=== PATIENT | female | born 1975 | race Two or more races ===

== ENCOUNTER 2016-03-06 10:57 | Emergency (ER) | payer MEDICAID ==
[2016-03-06] MEDS ORDERED: IBUPROFEN 600 MG TABLET PO STA (12:02)
[2016-03-06] MEDS ORDERED: HYDROcod/ACETAM 5/325 MG TABLET PO STA (12:02)
[2016-03-06] MEDS ORDERED: HYDROcod/ACETAM 5/325 MG TABLET ONE (12:04)
[2016-03-06] MEDS ORDERED: IBUPROFEN 600 MG TABLET PO ONE (12:04)
== END 2016-03-06 12:47 | disposition home or self-care (01) ==
DX: J18.9 Pneumonia, unspecified organism (principal); S29.011A Strain of muscle and tendon of front wall of thorax, initial encounter; X58.XXXA Exposure to other specified factors, initial encounter; F17.200 Nicotine dependence, unspecified, uncomplicated
CPT/HCPCS: 71020; 99283; 99284; A9270

== ENCOUNTER 2016-07-13 14:47 | Outpatient (CLI) | payer MEDICAID ==
[2016-07-13 15:05] LABS: BASOPHILS # (AUTO) 0.1 10^3/uL (0.0-0.1); BASOPHILS % (AUTO) 0.7 %; EOSINOPHILS # (AUTO) 0.8 10^3/uL (0.0-0.7); EOSINOPHILS % (AUTO) 8.8 %; HCT - HEMATOCRIT 34.9 % (37.0-47.0); HGB - HEMOGLOBIN 11.7 g/dL (12.0-16.0); LYMPHOCYTES # (AUTO) 2.6 10^3/uL (1.5-3.5); MEAN CORPUSCULAR HEMOGLOBIN 25.7 pg (27.0-31.0); MEAN CORPUSCULAR HGB CONC 33.5 g/dL (32.0-36.0); MEAN CORPUSCULAR VOLUME 76.9 fL (81.0-99.0); MEAN PLATELET VOLUME 8.1 fL (7.9-10.8); MONOCYTES # (AUTO) 0.8 10^3/uL (0.0-1.0); MONOCYTES % (AUTO) 8.3 %; NEUTROPHILS % (AUTO) 54.2 %; RED BLOOD COUNT 4.54 10^6/uL (4.20-5.40); RED CELL DISTRIBUTION WIDTH 19.7 % (12.0-15.0); UNCORRECTED WHITE BLOOD COUNT 9.2 x10^3/uL; WHITE BLOOD COUNT 9.2 x10^3/uL (4.8-10.8)
[2016-07-13 15:16] LABS: ALBUMIN/GLOBULIN RATIO 1.3 (1.0-2.2); BILIRUBIN,TOTAL 0.2 mg/dL (0.2-1.0); CALCIUM 9.1 mg/dL (8.5-10.3); CREATININE 0.6 mg/dL (0.4-1.0); POTASSIUM 4.1 mmol/L (3.5-5.0); TOTAL PROTEIN 7.1 g/dL (6.7-8.2)
== END 2016-07-13 14:48 | disposition home or self-care (01) ==
LOC: LAB 14:47
PROVIDERS: ATTEND Registered Nurse
DX: Z79.899 Other long term (current) drug therapy (principal)
CPT/HCPCS: 36415; 80053; 80306; 84443; 85025

== ENCOUNTER 2016-12-31 14:00 | Outpatient (CLI) | payer MEDICAID ==
[2016-12-31 19:18] LABS: ALBUMIN/GLOBULIN RATIO 1.1 (1.0-2.2); BILIRUBIN,TOTAL 0.3 mg/dL (0.2-1.0); BUN - BLOOD UREA NITROGEN 20 mg/dL (6-20); CALCIUM 9.2 mg/dL (8.5-10.3); CARBON DIOXIDE - CO2 18 mmol/L (21-32); CHLORIDE 111 mmol/L (101-111); CREATININE 0.8 mg/dL (0.4-1.0); GFR - MDRD 78 (>89); GLUCOSE 92 mg/dL (70-100); POTASSIUM 3.7 mmol/L (3.5-5.0); SODIUM 137 mmol/L (135-145); TOTAL PROTEIN 7.3 g/dL (6.7-8.2)
== END 2016-12-31 14:01 | disposition home or self-care (01) ==
LOC: LAB.N 14:00
PROVIDERS: ATTEND Nurse Practitioner Gerontology
DX: R63.5 Abnormal weight gain (principal); R10.9 Unspecified abdominal pain
CPT/HCPCS: 36415; 80053; 84443; 84703

== ENCOUNTER 2017-01-08 08:56 | Outpatient (CLI) | payer MEDICAID ==
--- NOTE | 2017-01-08 11:30 | Ultrasound Report ---
EXAM: ABDOMEN ULTRASOUND EXAM DATE: 01/08/2017 09:30 AM. CLINICAL HISTORY: Abdominal pain. COMPARISON: None. TECHNIQUE: Real-time scanning was performed with static images obtained. FINDINGS: Liver: Liver parenchyma is heterogeneous and mildly hyperechoic. No discrete liver masses or intrah epatic bile duct dilation. However, evaluation for masses is limited secondary to the echogenicity. 16.4 cm. Main portal vein flow: Hepatopetal. Gallbladder: Normal. No stones, wall thickening, or sonographic Jorge's sign. Biliary System: Common bile duct measures 4.6 mm. No intrahepatic or extrahepatic ductal dilatation. Pancreas: Distal pancreas largely obscured by bowel gas. No gross pancreatic abnormality. Kidneys: Right: 11.3 cm longitudinally. Normal. No contour-deforming mass, stones, or hydronephrosis. Left: 11 cm longitudinally. Normal. No contour-deforming mass, stones, or hydronephrosis. Spleen: Length measures 9.7 cm. Normal in size and echotexture. Aorta and Inferior Vena Cava: Unremarkable. IMPRESSION: 1. Mild fatty infiltration to the liver. No mass or intrahepatic bile duct dilation. 2. Distal pancreas not well seen. No gross pancreatic abnormality. 3. Normal gallbladder and common bile duct. [facility] Referring Provider Line: [phone] SITE ID: [id number]
== END 2017-01-08 08:57 | disposition home or self-care (01) ==
LOC: DI 08:56
PROVIDERS: ATTEND Nurse Practitioner Gerontology
DX: K76.0 Fatty (change of) liver, not elsewhere classified (principal)
CPT/HCPCS: 76700

== ENCOUNTER 2017-02-08 19:28 | Outpatient (CLI) | payer MEDICAID | END 2017-02-08 19:29 | disposition critical access hospital (66) | LOC: EMS 19:28 | PROVIDERS: ATTEND Surgery | DX: R41.82 Altered mental status, unspecified (principal) | CPT/HCPCS: A0425; A0427 ==

== ENCOUNTER 2017-02-08 19:39 | Inpatient (IN) | payer MEDICAID ==
[2017-02-08] MEDS ORDERED: LORazepam 2 MG/ML VIAL IVP PRN (20:05)
[2017-02-08] MEDS ORDERED: HALOPERIDOL 5 MG/ML VIAL IM STA (20:07)
[2017-02-08] MEDS ORDERED: diphenhydrAMINE INJ 50 MG/ML VIAL IM STA (20:08)
[2017-02-08 20:37] LABS: BILIRUBIN,URINE NEGATIVE (NEGATIVE); GLUCOSE, URINE (UA) NEGATIVE (NEGATIVE); KETONES,URINE (UA) NEGATIVE (NEGATIVE); LEUKOCYTE ESTERASE, URINE NEGATIVE (NEGATIVE); NITRITE,URINE NEGATIVE (NEGATIVE); OCCULT BLOOD,URINE MODERATE (NEGATIVE); PROTEIN,URINE 100 mg/dL (NEGATIVE); UROBILINOGEN,URINE 0.2 (NORMAL) E.U./dL (NORMAL)
[2017-02-08 20:49] LABS: BASOPHILS # (AUTO) 0.1 10^3/uL (0.0-0.1); BASOPHILS % (AUTO) 0.6 %; EOSINOPHILS # (AUTO) 0.2 10^3/uL (0.0-0.7); EOSINOPHILS % (AUTO) 1.2 %; HGB - HEMOGLOBIN 12.6 g/dL (12.0-16.0); LYMPHOCYTES # (AUTO) 1.2 10^3/uL (1.5-3.5); LYMPHOCYTES % (AUTO) 9.1 %; MEAN CORPUSCULAR VOLUME 84.2 fL (81.0-99.0); MEAN PLATELET VOLUME 8.3 fL (7.9-10.8); MONOCYTES # (AUTO) 0.8 10^3/uL (0.0-1.0); MONOCYTES % (AUTO) 6.6 %; NEUTROPHILS # (AUTO) 10.4 10^3/uL (1.5-6.6); NEUTROPHILS % (AUTO) 82.5 %; PLT - PLATELET COUNT 463 10^3/uL (130-450); RED BLOOD COUNT 4.68 10^6/uL (4.20-5.40); RED CELL DISTRIBUTION WIDTH 16.9 % (12.0-15.0); WHITE BLOOD COUNT 12.7 x10^3/uL (4.8-10.8)
[2017-02-08 20:54] LABS: PT - PROTHROMBIN TIME 11.8 secs (9.9-12.6)
[2017-02-08 20:57] LABS: MUDS CUTOFF CONCENTRATIONS CUTOFF CONC BELOW:
[2017-02-08 20:57] LABS: CK- CREATINE KINASE 533 IU/L (22-269); SALICYLATE < 6.0 mg/dL
[2017-02-08 21:06] LABS: CLARITY,URINE CLEAR (CLEAR)
[2017-02-08] MEDS ORDERED: SODIUM CHLORIDE 0.9% 1,000 ML IV ONE (21:06)
[2017-02-08 21:08] LABS: SQUAMOUS EPITHELIAL CELL,UR MOD Squamous (<= Few)
[2017-02-08 21:09] LABS: AMORPHOUS SEDIMENT,UR Few /LPF; BACTERIA,URINE Few /HPF (None Seen); CASTS, URINE 11-25Course Granular /LPF
--- NOTE | 2017-02-08 21:11 | CT Preliminary Report ---
Exam: CT HEAD W/O IMPRESSION: Normal head CT. [facility] SITE ID: [id number]
[2017-02-08 21:12] LABS: HCG UR QUAL NEGATIVE
[2017-02-08 21:13] LABS: COCAINE SCREEN URINE NEGATIVE (NEGATIVE); METHADONE SCREEN, URINE NEGATIVE (NEGATIVE); METHAMPHETAMINES SCREEN, URINE NEGATIVE (NEGATIVE); OPIATE SCREEN, URINE NEGATIVE (NEGATIVE); OXYCODONE SCREEN, URINE NEGATIVE (NEGATIVE); PROPOXYPHENE SCREEN, URINE NEGATIVE (NEGATIVE); TRICYCLIC ANTIDEPRESSANT,URINE NEGATIVE (NEGATIVE)
[2017-02-08 21:13] LABS: ACETAMINOPHEN < 10 ug/mL (10-30)
--- NOTE | 2017-02-08 21:13 | CT Report ---
EXAM: CT HEAD EXAM DATE: 02/08/2017 08:53 PM. CLINICAL HISTORY: Altered mental status. COMPARISON: 12/27/2014. TECHNIQUE: Multiaxial CT images were obtained from the foramen magnum to the vertex. Reformats: Coron al. IV contrast: None. In accordance with CT protocol optimization, one or more of the following dose reduction techniques w ere utilized for this exam: automated exposure control, adjustment of mA and/or KV based on patient s ize, or use of iterative reconstructive technique. FINDINGS: Parenchyma: No intraparenchymal hemorrhage. No evidence of mass, midline shift, or CT findings of inf arction. Allen-white differentiation is distinct. Extraaxial Spaces: Normal for age. No subdural or epidural collections identified. Ventricles: Normal in size and position. Sinuses and Orbits: Imaged paranasal sinuses, orbits, and mastoids show no significant abnormality. Bones: No evidence of fracture or calvarial defect. Other: None. IMPRESSION: Normal head CT. [facility] Referring Provider Line: [phone] SITE ID: [id number]
[2017-02-08 21:14] LABS: AMPHETAMINE SCREEN,URINE POSITIVE (NEGATIVE); BENZODIAZEPINES SCREEN, URINE POSITIVE (NEGATIVE)
--- NOTE | 2017-02-08 21:33 | ED Physician Documentation ---
History of Present Illness - Stated complaint Stated Complaint: DELERIUM - Chief complaint Chief Complaint: Neuro - History obtained from History obtained from: Patient, Family ( reported that they went to [place] today and while they were they were there they( and ) did have anxiety. reports that she took two of her anxiety medications and did have 3 energy drinks. reports thta when they got home they had dinner and after dinner the patient went up stairs and when she cam down she was anxoius, altered, angry. reports of a fall.), EMS Review of Systems Unable to obtain: AMS, Confused, Uncooperative PD PAST MEDICAL HISTORY - Past Medical History Cardiovascular: None Respiratory: None Neuro: Head injury Endocrine/Autoimmune: None GI: None : None HEENT: None Psych: Depression, Post traumatic stress disorder Musculoskeletal: None Derm: None - Past Surgical History Past Surgical History: No /[employer]: section, Breast implants Neuro: Other - Present Medications Home Medications: Ambulatory Orders Medication Instructions Recorded Confirmed Escitalopram Oxalate [Lexapro] 20 mg PO DAILY #30 tablet 11/14/15 03/06/16 Albuterol Sulfate [Proair Hfa 2 puffs IH QID #1 hfa.aer.ad 03/06/16 Inhaler] Alprazolam [Xanax] 0 mg ORAL DAILY 03/06/16 03/06/16 Aripiprazole [Abilify] 0 mg ORAL DAILY 03/06/16 03/06/16 Azithromycin [Zithromax] 250 mg PO DAILY #6 tablet 03/06/16 Dexamethasone [Decadron] 4 mg PO DAILY #5 tablet 03/06/16 Hydrocodone/Acetaminophen [[place] 1 each PO Q6H PRN #20 tablet 03/06/16 5-325 Tablet] - Allergies Allergies/Adverse Reactions: Allergies Allergy/AdvReac Type Severity Reaction Status Date / Time No Known Drug Allergies Allergy Verified 03/06/16 11:09 - Social History Does the pt smoke?: Yes Smoking Status: Current some day smoker Does the pt drink ETOH?: Yes Does the pt have substance abuse?: No - Immunizations Immunizations are current?: Yes - POLST Patient has POLST: No PD ED PE NORMAL - Vitals Vital signs reviewed: Yes - General General: Well developed/nourished. No: No acute distress (severe distress) - HEENT HEENT: Atraumatic, Moist mucous membranes. No: PERRL (pupils 6mm equal and min reactive), EOMI - Neck Neck: Supple, no meningeal sign - Cardiac Cardiac: No: RRR (tachycardic ) - Respiratory Respiratory: No respiratory distress, Clear bilaterally - Abdomen Abdomen: Soft, Non distended - Derm Derm: No rash, Other (moist) - Extremities Extremities: Other (moves all 4 ) - Neuro Eye Opening: None Motor: None Verbal: Incomprehensible GCS Score: 4 - Psych Psych: Other PD ED PE EXPANDED - Neuro Neuro: Disoriented - Psych Psych: Non verbal, Agitated, Combative Results - Vitals Vitals: Vital Signs - 24 hr 02/08/17 02/08/17 02/08/17 19:50 19:53 21:08 Temperature 40 C H 39.5 C H Heart Rate 149 H 112 H Respiratory 32 H 25 H Rate Blood Pressure 189/99 H 110/74 O2 Saturation 100 96 Oxygen O2 Source Nasal cannula - EKG (time done) 2036 Rate: Rate (enter#) Rhythm: Sinus tachycardia [place]: Normal Intervals: Normal IA, QRS normal. No: Prolonged QT QRS: Normal Ischemia: Normal ST segments - Labs Labs: Laboratory Tests 02/08/17 02/08/17 02/08/17 20:26 20:26 20:26 WBC RBC Hgb Hct MCV MCH MCHC RDW Plt Count MPV Neut # Lymph # [place] # Eos # Baso # Absolute Nucleated RBC Nucleated RBC % PT INR APTT Lactic Acid Total Creatine Kinase Troponin I Urine Color YELLOW Urine Clarity CLEAR Urine pH 6.0 Ur Specific [place] >=1.030 H >=1.030 H Urine Protein 100 H Urine Glucose (UA) NEGATIVE Urine Ketones NEGATIVE Urine Occult Blood MODERATE H Urine Nitrite NEGATIVE Urine Bilirubin NEGATIVE Urine Urobilinogen 0.2 (NORMAL) Ur Leukocyte Esterase NEGATIVE Urine RBC 11-25 H Urine WBC 6-10 H Ur Squamous Epith Cells MOD Squamous H Amorphous Sediment Few Urine Bacteria Few Urine Casts 11-25Course Granular Ur Microscopic Review INDICATED Urine Culture Comments NOT INDICATED Urine HCG, Qual NEGATIVE Salicylates Urine Opiates Screen NEGATIVE Ur Oxycodone Screen NEGATIVE Urine Methadone Screen NEGATIVE Ur Propoxyphene Screen NEGATIVE Acetaminophen Ur Barbiturates Screen NEGATIVE Ur Tricyclics Screen NEGATIVE Ur Phencyclidine Scrn NEGATIVE Ur Amphetamine Screen POSITIVE H U Methamphetamines Scrn NEGATIVE U Benzodiazepines Scrn POSITIVE H Urine Cocaine Screen NEGATIVE U Cannabinoids Screen NEGATIVE Ethyl Alcohol 02/08/17 02/08/17 02/08/17 20:30 20:30 20:30 WBC 12.7 H RBC 4.68 Hgb 12.6 Hct 39.4 MCV 84.2 MCH 27.0 MCHC 32.0 RDW 16.9 H Plt Count 463 H MPV 8.3 Neut # 10.4 H Lymph # 1.2 L [place] # 0.8 Eos # 0.2 Baso # 0.1 Absolute Nucleated RBC 0.01 Nucleated RBC % 0.1 PT 11.8 INR 1.0 APTT 24.2 L Lactic Acid Total Creatine Kinase 533 H Troponin I Urine Color Urine Clarity Urine pH Ur Specific [place] Urine Protein Urine Glucose (UA) Urine Ketones Urine Occult Blood Urine Nitrite Urine Bilirubin Urine Urobilinogen Ur Leukocyte Esterase Urine RBC Urine WBC Ur Squamous Epith Cells Amorphous Sediment Urine Bacteria Urine Casts Ur Microscopic Review Urine Culture Comments Urine HCG, Qual Salicylates < 6.0 Urine Opiates Screen Ur Oxycodone Screen Urine Methadone Screen Ur Propoxyphene Screen Acetaminophen < 10 L Ur Barbiturates Screen Ur Tricyclics Screen Ur Phencyclidine Scrn Ur Amphetamine Screen U Methamphetamines Scrn U Benzodiazepines Scrn Urine Cocaine Screen U Cannabinoids Screen Ethyl Alcohol < 5.0 02/08/17 02/08/17 20:30 20:30 WBC RBC Hgb Hct MCV MCH MCHC RDW Plt Count MPV Neut # Lymph # [place] # Eos # Baso # Absolute Nucleated RBC Nucleated RBC % PT INR APTT Lactic Acid 8.3 H* Total Creatine Kinase Troponin I < 0.04 Urine Color Urine Clarity Urine pH Ur Specific [place] Urine Protein Urine Glucose (UA) Urine Ketones Urine Occult Blood Urine Nitrite Urine Bilirubin Urine Urobilinogen Ur Leukocyte Esterase Urine RBC Urine WBC Ur Squamous Epith Cells Amorphous Sediment Urine Bacteria Urine Casts Ur Microscopic Review Urine Culture Comments Urine HCG, Qual Salicylates Urine Opiates Screen Ur Oxycodone Screen Urine Methadone Screen Ur Propoxyphene Screen Acetaminophen Ur Barbiturates Screen Ur Tricyclics Screen Ur Phencyclidine Scrn Ur Amphetamine Screen U Methamphetamines Scrn U Benzodiazepines Scrn Urine Cocaine Screen U Cannabinoids Screen Ethyl Alcohol - Rads (name of study) head CT Radiology: Final report received (normal head CT ), EMP read contemporaneously PD MEDICAL DECISION MAKING - ED course Complexity details: reviewed results, re-evaluated patient, considered differential, d/w patient, d/w family, d/w research consultant ED course: pt cam in altered and combative and possible seizure. was in a sympathomimetic toxidrome. symptoms improved with medications in the ER. after the medications and time the pt calmed down and states that she does not know what happened, she denies taking any drugs. Her elevated WBC and lactate are C/W her presenting symptoms. no prolonged Qtc on the ECG. discussed case with hospitalist. will admit for observation. Departure - Departure Disposition: ED Place in Observation Clinical Impression: Altered mental status, Seizure Condition: Stable
[2017-02-08] MEDS ORDERED: PROCHLORPERAZINE 10 MG/2 ML VIAL IVP PRN (21:58)
[2017-02-08] MEDS ORDERED: IBUPROFEN 600 MG TABLET PO PRN (21:58)
[2017-02-08] MEDS ORDERED: TEMAZEPAM 15 MG CAPSULE PO PRN (21:58)
[2017-02-08] MEDS ORDERED: HYDROcod/ACETAM 5/325 MG TABLET PO PRN (22:02)
--- NOTE | 2017-02-08 22:51 | HISTORY & PHYSICAL EXAMINATION ---
Chief Complaint - Chief Complaint Chief Complaint: Altered mental status History of Present Illness - Admitted From Admitted From:: Home - History of Present Illness HPI Comment/Other: Ms. Rhiannon Wu is a very pleasant 41-year-old female with a history of Severe anxiety and depression and who went to [place] today with her fianc. While in [place] the became lost for a brief amount of time however this triggered the patient's anxiety and she began to take her antianxiety medications. When she got home from [place] she went upstairs and came down about 10 or 15 minutes later and had an altered level of consciousness at that time.She was brought to the [facility] emergency department Where she was stabilized and began to return to her baseline. A urine drug screen was positive for both benzodiazepines and Amphetamines. 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 - Substance History Use: Uses substance without health or social issues: Tobacco, Sedative Use Issues: Anxiety Disorder Abuse: Recurrent use of substance despite neg consequences: NONE Dependence: Experiences withdrawal or developed tolerances: Tobacco Tobacco Details: Cigarettes - POLST Patient has POLST: No POLST Status: Full Code Meds/Allgy - Home Medications Home Medications: Ambulatory Orders Medication Instructions Recorded Confirmed Escitalopram Oxalate [Lexapro] 20 mg PO DAILY #30 tablet 11/14/15 03/06/16 Albuterol Sulfate [Proair Hfa 2 puffs IH QID #1 hfa.aer.ad 03/06/16 Inhaler] Alprazolam [Xanax] 0 mg ORAL DAILY 03/06/16 03/06/16 Aripiprazole [Abilify] 0 mg ORAL DAILY 03/06/16 03/06/16 Azithromycin [Zithromax] 250 mg PO DAILY #6 tablet 03/06/16 Dexamethasone [Decadron] 4 mg PO DAILY #5 tablet 03/06/16 Hydrocodone/Acetaminophen [[place] 1 each PO Q6H PRN #20 tablet 03/06/16 5-325 Tablet] - Allergies Allergies/Adverse Reactions: Allergies Allergy/AdvReac Type Severity Reaction Status Date / Time No Known Drug Allergies Allergy Verified 03/06/16 11:09 Review of Systems - Constitutional Constitutional: reports: Fatigue, Poor appetite. denies: Fever, Chills, Malaise - Eyes Eyes: denies: Pain, Irritation, Blurred vision, Dipolpia - Ears, Nose & Throat Ears, Nose & Throat: denies: Ear pain, Hearing loss, Tinnitus, Vertigo, Nasal discharge, Nosebleeds, Sore throat - Cardiovascular Cariovascular: denies: Palpitations, Chest pain, Edema, Syncope - Respiratory Respiratory: denies: Cough, Wheezing, Snoring, Hemoptysis, Orthopnea - Gastrointestinal Gastrointestinal: denies: Abdominal pain, Abdominal distention, Constipation, Diarrhea, Change in bowel habits, Rectal bleeding - Genitourinary Genitourinary: denies: Dysuria, Frequency, Urgency, Hematuria - Musculoskeletal Musculoskeletal: denies: Muscle pain, Back pain, Muscle aches, Stiffness - Integumentary Integumentary: denies: Rash, Pruritis, Lesions, Dryness - Neurological Neurological: denies: General weakness, Focal weakness, Headache, Dizziness, Seizures - Psychiatric Psychiatric: reports: Depression, Anxiety, Other (Bipolar disorder). denies: Suicidal, Delusions, Hallucinations - Endocrine Endocrine: denies: Polyuria, Polydypsia, Polyphagia - Hematologic/Lymphatic Hematologic/Lymphatic: denies: Anemia, Bruising, Petechiae, Lymphadenopathy - All Other Systems All Other Systems: reports: Reviewed and negative Exam - Vital Signs Reviewed Vital Signs: Yes Vital Signs: Vital Signs x48h Temp Pulse Resp BP Pulse Ox 02/08/17 22:37 37.2 C 105 H 24 124/75 97 02/08/17 22:27 37 C - Physical Exam General Appearance: positive: Alert, Mild distress, Anxious Eyes Bilateral: positive: Normal inspection, PERRL, EOMI ENT: positive: ENT inspection nml, Pharynx nml, No signs of dehydration Neck: positive: Nml inspection, Thyroid nml, No JVD, Trachea midline. negative : Thyromegaly Respiratory: positive: Chest non-tender, No respiratory distress, Breath sounds nml Cardiovascular: positive: Regular rate & rhythm, No murmur, No gallop. negative : Systolic murmur, Diastolic murmur Peripheral Pulses: positive: 1+ Abdomen: positive: Non-tender, No organomegaly, Nml bowel sounds, No distention. negative: Guarding, Rebound Back: positive: Nml inspection. negative: CVA tenderness (R), CVA tenderness (L ) Skin: positive: Color nml, No rash, Warm, Dry. negative: Cyanosis Extremities: positive: Non-tender, Full ROM, Nml appearance Neurologic/Psychiatric: positive: Oriented x3, CN's nml (2-12), Motor nml, Sensation nml, Mood/affect nml Conclusion/Plan - Problem List (1) Altered mental status Conclusion/Plan: Patient has an extensive history of anxiety, depression, panic attacks, and bipolar disorder.She had a panic attack while in [place] earlier today and at some point somehow ended up with amphetamines in her system per the drug screen from the emergency department this evening.At this time we will monitor the patient overnight and address any other new issues as they arise. If the patient remained stable we will discharge her tomorrow.She does appear to have returned to her baseline mentation. - Lab Results Fish Bones: 02/08/17 20:30 - Diagnostic Imaging Results Diagnostic Imaging Results: positive: Final report reviewed Diagnostic Imaging Results Comments: EXAM: CT HEAD EXAM DATE: 02/08/2017 08:53 PM. CLINICAL HISTORY: Altered mental status. COMPARISON: 12/27/2014. TECHNIQUE: Multiaxial CT images were obtained from the foramen magnum to the vertex. Reformats: Coronal. IV contrast: None. In accordance with CT protocol optimization, one or more of the following dose reduction techniques were utilized for this exam: automated exposure control, adjustment of mA and/or KV based on patient size, or use of iterative reconstructive technique. FINDINGS: Parenchyma: No intraparenchymal hemorrhage. No evidence of mass, midline shift, or CT findings of infarction. Allen-white differentiation is distinct. Extraaxial Spaces: Normal for age. No subdural or epidural collections identified. Ventricles: Normal in size and position. Sinuses and Orbits: Imaged paranasal sinuses, orbits, and mastoids show no significant abnormality. Bones: No evidence of fracture or calvarial defect. Other: None. IMPRESSION: Normal head CT. Issues/Core Measures - Anticipated LOS Anticipated Stay Length: Less than 2 midnights - [facility] Requirement for [facility] I expect patient to be DC'd or transferred within 96 hours.: Yes - DVT/VTE - Prophylaxis VTE/DVT Device ordered at admit?: Yes
[2017-02-08] MEDS: SODIUM CHLORIDE FLUSH 0.9% 10 ML SYRINGE IVP SCH (22:52)
[2017-02-09] MEDS: SODIUM CHLORIDE FLUSH 0.9% 10 ML SYRINGE IVP PRN (05:08)
[2017-02-09] MEDS: SODIUM CHLORIDE FLUSH 0.9% 10 ML SYRINGE IVP SCH ×3 (05:08→21:42)
[2017-02-09] MEDS ORDERED: ALBUTEROL NEB 2.5 MG/3 ML INH SCH (07:00)
--- NOTE | 2017-02-09 07:40 | DISCHARGE SUMMARY ---
Discharge Summary Admit Date: 02/08/17 Discharge Date: 02/09/17 Discharging Provider: GEOFFREY Gan Primary Care Provider: Ismael Meade Code Status: Attempt Resuscitation Condition at Discharge: Fair Discharge Disposition: 07 Against Medical Advice - DIAGNOSES Admission Diagnoses: Altered mental status (R41.82) Discharge Diagnoses with Status of Each Condition: Altered mental status (R41.82) resolved. Rhabdomyolysis (M62.82) ongoing, unresolved. Patient left AMA so not able to complete recommended treatment. Polysubstance overdose (T50.901A) chronic, stable. Could have been a contributing factor to rhabdomyolysis. Alcohol withdrawal (F10.239) stable, resolved. Alcoholism /alcohol abuse (F10.20) chronic, controlled while hospitalized. Depression (F32.9) chronic, controlled. - HPI History of Present Illness: Rhiannon Wu is a pleasant 41-year-old female with a history of severe anxiety, depression, who went to [place] today with her fianc. While in [place] she became lost for a brief amount of time, however this triggered the patient's anxiety and she began to take her anti-anxiety medications. When she got home from [place] she went upstairs and came down about 10 or 15 minutes later and had an altered level of consciousness at that time. She was brought to the [facility] emergency department where she was stabilized and began to return to her baseline. A urine drug screen was positive for both benzodiazepines and Amphetamines. Patient will be placed on observation for further monitoring of her AMS. - CONSULTS | PROCEDURES Consultations: none - HOSPITAL COURSE Hospital Course: The hospital course was originally just one night of observation, but was extended due to the diagnosis of developing rhabdomyolosis and the suspicion of ETOH withdrawal. Patient was aggressively treated with IVFs and sedated mildly with benzodiazepines for signs of withdrawal. By the 3rd hospital day, patient demanded to be discharged despite her persistent elevation in creatine kinase from 533 on admission up to 4621 and trending down to 3428 by the time the patient left AMA/discharged. The patient was very accommodating with "signing herself out", and remained very somnolent, without emotion in regards to her health. Patient was encouraged to drink plenty of water and report back to the ED if she has muscle cramps, or begins to feel sick. She was encouraged to seek AODA treatment. She left her room with her , and requested that we not tell her of the AMA occurrence. - ALLERGIES Allergies/Adverse Reactions: Allergies Allergy/AdvReac Type Severity Reaction Status Date / Time No Known Drug Allergies Allergy Verified 03/06/16 11:09 - MEDICATIONS Home Medications: Ambulatory Orders Medication Instructions Recorded Confirmed Alprazolam [Xanax] 0.5 mg ORAL BID PRN 03/06/16 02/09/17 ARIPiprazole [Aripiprazole] 20 mg PO DAILY 02/09/17 02/09/17 Albuterol Sulfate [Proair Hfa 2 puffs INH QID PRN 02/09/17 02/09/17 Inhaler] Dextroamphetamine/Amphetamine 20 mg PO 1200 02/09/17 02/09/17 [Dextroamp-Amphetamin 20 mg Tab] Dextroamphetamine/Amphetamine 40 mg PO DAILY 02/09/17 02/09/17 [Dextroamp-Amphetamin 20 mg Tab] Escitalopram [Lexapro] 40 mg PO DAILY 02/09/17 02/09/17 Ibuprofen [Motrin] 800 mg PO TID PRN 02/09/17 02/09/17 Lurasidone HCl [Latuda] 40 mg PO QPM 02/09/17 02/09/17 Prazosin HCl 2 mg PO QPM PRN 02/09/17 02/09/17 buPROPion [Wellbutrin Sr] 300 mg PO DAILY 02/09/17 02/09/17 - PHYSICAL EXAM AT DISCHARGE General Appearance: positive: No acute distress, Alert Eyes Bilateral: positive: Normal inspection, PERRL ENT: positive: ENT inspection nml, Pharynx nml, No signs of dehydration Neck: positive: Nml inspection, Thyroid nml, No JVD, Trachea midline Respiratory: positive: Chest non-tender, No respiratory distress, Other ( scattered crackles throughout bilateral lungs, no cough.) Cardiovascular: positive: Regular rate & rhythm, No gallop, Systolic murmur, Decreased pulse(s) Peripheral Pulses: positive: 1+ Abdomen: positive: Non-tender, No organomegaly, Nml bowel sounds, No distention Back: positive: Nml inspection Skin: positive: Color nml, No rash, Warm, Diaphoresis (mild.) Extremities: positive: Non-tender, Full ROM, Nml appearance, No pedal edema Neurologic/Psychiatric: positive: Oriented x3, CN's nml (2-12), Motor nml, Sensation nml, Depressed mood/affect, Other (patient was aware of her medical condition.) Reflexes: Bicep (R): 3+, Bicep (L): 3+ - LABS Result Diagrams: 02/10/17 05:44 02/10/17 17:08 - DIAGNOSTIC IMAGING Diagnostic Imaging Results: Final report reviewed Diagnostic Imaging Results Comments: Head CT on admission: FINDINGS: Parenchyma: No intraparenchymal hemorrhage. No evidence of mass, midline shift, or CT findings of infarction. Allen-white differentiation is distinct. Extraaxial Spaces: Normal for age. No subdural or epidural collections identified. Ventricles: Normal in size and position. Sinuses and Orbits: Imaged paranasal sinuses, orbits, and mastoids show no significant abnormality. Bones: No evidence of fracture or calvarial defect. Other: None. IMPRESSION: Normal head CT. - FOLLOW UP Follow Up: You are leaving against medical advise since you are still suffering from active rhabdomylosis. Please see your PCP within a week. Drink as much water as possible. Please report to the ED if you are not well. Do not drink alcohol or take in any illicit drugs. Take all medications as prescribed. - TIME SPENT Time Spent in Discharge (Minutes): 60
[2017-02-09] MEDS ORDERED: ALBUTEROL NEB 2.5 MG/3 ML INH PRN (08:55)
[2017-02-09] MEDS ORDERED: POLYETHYLENE GLYCOL 3350 17 GM PACKET PO SCH (09:00)
[2017-02-09] MEDS ORDERED: ALPRAZolam 0.25 MG TABLET PO SCH (09:00)
[2017-02-09] MEDS ORDERED: DEXAMETHASONE 4 MG TABLET PO SCH (09:00)
[2017-02-09] MEDS ORDERED: AZITHROMYCIN 250 MG TABLET PO SCH (09:00)
[2017-02-09] MEDS ORDERED: ESCITALOPRAM 10 MG TABLET PO SCH (09:00)
[2017-02-09] MEDS ORDERED: IPRATROPIUM/ALBUTEROL 3 ML NEB INH PRN (09:07)
[2017-02-09] MEDS ORDERED: NS W/20 MEQ KCL 1,000 ML IV SCH (10:00)
[2017-02-09 10:14] LABS: BASOPHILS % (AUTO) 0.2 %; EOSINOPHILS # (AUTO) 0.2 10^3/uL (0.0-0.7); EOSINOPHILS % (AUTO) 2.3 %; HGB - HEMOGLOBIN 11.5 g/dL (12.0-16.0); LYMPHOCYTES # (AUTO) 0.9 10^3/uL (1.5-3.5); LYMPHOCYTES % (AUTO) 10.1 %; MEAN CORPUSCULAR HEMOGLOBIN 27.8 pg (27.0-31.0); MEAN CORPUSCULAR HGB CONC 33.4 g/dL (32.0-36.0); MEAN CORPUSCULAR VOLUME 83.1 fL (81.0-99.0); MEAN PLATELET VOLUME 7.8 fL (7.9-10.8); MONOCYTES # (AUTO) 1.1 10^3/uL (0.0-1.0); NEUTROPHILS % (AUTO) 75.4 %; PLT - PLATELET COUNT 353 10^3/uL (130-450); RED BLOOD COUNT 4.12 10^6/uL (4.20-5.40); RED CELL DISTRIBUTION WIDTH 17.1 % (12.0-15.0); WHITE BLOOD COUNT 9.2 x10^3/uL (4.8-10.8)
[2017-02-09] MEDS: ARIPiprazole 5 MG TABLET PO SCH (10:32)
[2017-02-09 10:34] LABS: HB2 TOTAL 11.8 g/dL; HEMOGLOBIN A1C 0.41 g/dL; HEMOGLOBIN A1C % 5.3 % (4.6-6.2)
[2017-02-09 10:38] LABS: ALBUMIN 3.7 g/dL (3.2-5.5); ALBUMIN/GLOBULIN RATIO 1.3 (1.0-2.2); BILIRUBIN,TOTAL 0.5 mg/dL (0.2-1.0); CALCIUM 8.8 mg/dL (8.5-10.3); CREATININE 0.7 mg/dL (0.4-1.0); MAGNESIUM 2.4 mg/dL (1.7-2.8); PHOSPHORUS 3.9 mg/dL (2.5-4.6); TOTAL PROTEIN 6.6 g/dL (6.7-8.2)
[2017-02-09] MEDS: SODIUM CHLORIDE 0.9% 1,000 ML IV SCH ×4 (11:29→23:48)
[2017-02-09 11:31] LABS: BILIRUBIN,URINE NEGATIVE (NEGATIVE); GLUCOSE, URINE (UA) NEGATIVE (NEGATIVE); KETONES,URINE (UA) NEGATIVE (NEGATIVE); LEUKOCYTE ESTERASE, URINE NEGATIVE (NEGATIVE); NITRITE,URINE NEGATIVE (NEGATIVE); OCCULT BLOOD,URINE LARGE (NEGATIVE); PROTEIN,URINE NEGATIVE (NEGATIVE); UROBILINOGEN,URINE 0.2 (NORMAL) E.U./dL (NORMAL)
[2017-02-09 11:47] LABS: CLARITY,URINE CLOUDY (CLEAR)
[2017-02-09 11:51] LABS: BACTERIA,URINE Moderate /HPF (None Seen); RBC,URINE TNTC /HPF (0-5); SQUAMOUS EPITHELIAL CELL,UR FEW Squamous (<= Few)
[2017-02-09 11:52] LABS: MUCUS,URINE Marked Strands
--- NOTE | 2017-02-09 15:01 | PROVIDER PROGRESS NOTE ---
Subjective - Prog Note Date Prog Note Date: 02/09/17 Prog Note Time: 15:00 - Subjective Pt reports feeling: Improved Subjective: Rhiannon has no physical complaints, and wishes to go home. She denies SOB, chest pain, N/V or a new cough. Current Medications - Current Medications Current Medications: Active Medications Albuterol/Ipratropium (Duoneb) 3 ml INH Q4HR PRN PRN Reason: Wheezing Aripiprazole (Abilify) 20 mg PO DAILY [facility] Last Admin: 02/09/17 10:32 Dose: 20 mg Sodium Chloride (Normal Saline 0.9%) 1,000 mls @ 250 mls/hr IV .Q4H [facility] Last Admin: 02/09/17 15:41 Dose: 250 mls/hr Ibuprofen (Motrin) 600 mg PO Q6HR PRN PRN Reason: Pain 1 to 4 Lorazepam (Ativan) 1 mg PO Q1H PRN; Protocol PRN Reason: CIWA > 8 Lorazepam (Ativan Inj (Vial)) 1 mg IVP Q30M PRN; Protocol PRN Reason: CIWA >8 Prochlorperazine Edisylate (Compazine Inj) 10 mg IVP Q6HR PRN PRN Reason: Nausea / Vomiting Sodium Chloride (Normal Saline Flush 0.9%) 10 ml IVP PRN PRN PRN Reason: NEEDED PER PROVIDER ORDERS Last Admin: 02/09/17 05:08 Dose: 10 ml Sodium Chloride (Normal Saline Flush 0.9%) 10 ml IVP Q8HR [facility] Last Admin: 02/09/17 11:44 Dose: Not Given Temazepam (Restoril) 15 mg PO QPM PRN PRN Reason: Insomnia Alprazolam [Xanax] 0.5 mg ORAL BID PRN 03/06/16 ARIPiprazole [Aripiprazole] 20 mg PO DAILY 02/09/17 Albuterol Sulfate [Proair Hfa Inhaler] 2 puffs INH QID PRN 02/09/17 Dextroamphetamine/Amphetamine [Dextroamp-Amphetamin 20 mg Tab] 20 mg PO 1200 Dextroamphetamine/Amphetamine [Dextroamp-Amphetamin 20 mg Tab] 40 mg PO DAILY Escitalopram [Lexapro] 40 mg PO DAILY 02/09/17 Ibuprofen [Motrin] 800 mg PO TID PRN 02/09/17 Lurasidone HCl [Latuda] 40 mg PO QPM 02/09/17 Prazosin HCl 2 mg PO QPM PRN 02/09/17 buPROPion [Wellbutrin Sr] 300 mg PO DAILY 02/09/17 Objective - Vital Signs/Intake & Output Reviewed Vital Signs: Yes Vital Signs: Vital Signs x48h Temp Pulse Pulse Resp BP Pulse Ox 02/09/17 12:18 36.5 C 77 16 106/71 98 02/09/17 08:00 81 16 02/09/17 07:59 36.5 C 73 18 103/64 98 Intake & Output: Intake & Output 02/06/17 02/07/17 02/08/17 02/09/17 23:59 23:59 23:59 23:59 Intake Total 1000 1069 Output Total 250 775 Balance 750 294 - Objective General Appearance: positive: No acute distress, Alert Eyes Bilateral: positive: PERRL Eyes: OU Lid inflammation ENT: positive: ENT inspection nml, Pharynx nml, Dry mucous membranes Neck: positive: Nml inspection, Thyroid nml, No JVD, Trachea midline Respiratory: positive: Chest non-tender, No respiratory distress, Breath sounds nml Cardiovascular: positive: Regular rate & rhythm, No murmur, No gallop Peripheral Pulses: 2+ Radial (R), 2+ Radial (L) Abdomen: positive: Non-tender, No organomegaly, Nml bowel sounds, No distention Back: positive: Nml inspection Skin: positive: Color nml, No rash, Warm, Dry Extremities: positive: Non-tender, Full ROM, Nml appearance, No pedal edema Neurologic/Psychiatric: positive: Oriented x3, CN's nml (2-12), Motor nml, Sensation nml, Depressed mood/affect Reflexes: Bicep (R): 2+, Bicep (L): 2+ - Lab Results Fish Bones: 02/10/17 05:44 02/10/17 05:44 Other Labs: Lab Results x24hrs 02/09/17 02/09/17 02/09/17 Range/Units 11:22 10:07 10:07 WBC (4.8-10.8) x10^3/uL RBC (4.20-5.40) 10^6/uL Hgb (12.0-16.0) g/dL Hct (37.0-47.0) % MCV (81.0-99.0) fL MCH (27.0-31.0) pg MCHC (32.0-36.0) g/dL RDW (12.0-15.0) % Plt Count (130-450) 10^3/uL MPV (7.9-10.8) fL Neut # (1.5-6.6) 10^3/uL Lymph # (1.5-3.5) 10^3/uL Kern # (0.0-1.0) 10^3/uL Eos # (0.0-0.7) 10^3/uL Baso # (0.0-0.1) 10^3/uL Absolute Nucleated RBC x10^3/uL Nucleated RBC % /100WBC Sodium (135-145) mmol/L Potassium (3.5-5.0) mmol/L Chloride (101-111) mmol/L Carbon Dioxide (21-32) mmol/L Anion Gap (6-13) BUN (6-20) mg/dL Creatinine (0.4-1.0) mg/dL Estimated GFR (MDRD) (>89) Glucose (70-100) mg/dL Glycated Hemoglobin 5.3 (4.6-6.2) % Estim Average Glucose 105 H (70-100) Lactic Acid 1.3 (0.5-2.2) mmol/L Calcium (8.5-10.3) mg/dL Phosphorus (2.5-4.6) mg/dL Magnesium (1.7-2.8) mg/dL Total Bilirubin (0.2-1.0) mg/dL AST (10-42) IU/L ALT (10-60) IU/L Alkaline Phosphatase (42-121) IU/L Total Creatine Kinase (22-269) IU/L Total Protein (6.7-8.2) g/dL Albumin (3.2-5.5) g/dL Globulin (2.1-4.2) g/dL Albumin/Globulin Ratio (1.0-2.2) Urine Color YELLOW Urine Clarity CLOUDY (CLEAR) Urine pH 6.0 (5.0-7.5) PH Ur Specific Matlock >=1.030 H (1.002-1.030) Urine Protein NEGATIVE (NEGATIVE) mg/dL Urine Glucose (UA) NEGATIVE (NEGATIVE) mg/dL Urine Ketones NEGATIVE (NEGATIVE) mg/dL Urine Occult Blood LARGE H (NEGATIVE) Urine Nitrite NEGATIVE (NEGATIVE) Urine Bilirubin NEGATIVE (NEGATIVE) Urine Urobilinogen 0.2 (NORMAL) (NORMAL) E.U./dL Ur Leukocyte Esterase NEGATIVE (NEGATIVE) Urine RBC TNTC H (0-5) /HPF Urine WBC 4-5 (0-5) /HPF Ur Squamous Epith Cells FEW Squamous (<= Few) Urine Bacteria Moderate H (None Seen) /HPF Urine Mucus Marked Strands Urine Culture Comments INDICATED 02/09/17 02/09/17 Range/Units 10:07 10:07 WBC 9.2 (4.8-10.8) x10^3/uL RBC 4.12 L (4.20-5.40) 10^6/uL Hgb 11.5 L (12.0-16.0) g/dL Hct 34.3 L (37.0-47.0) % MCV 83.1 (81.0-99.0) fL MCH 27.8 (27.0-31.0) pg MCHC 33.4 (32.0-36.0) g/dL RDW 17.1 H (12.0-15.0) % Plt Count 353 (130-450) 10^3/uL MPV 7.8 L (7.9-10.8) fL Neut # 7.0 H (1.5-6.6) 10^3/uL Lymph # 0.9 L (1.5-3.5) 10^3/uL Kern # 1.1 H (0.0-1.0) 10^3/uL Eos # 0.2 (0.0-0.7) 10^3/uL Baso # 0.0 (0.0-0.1) 10^3/uL Absolute Nucleated RBC 0.00 x10^3/uL Nucleated RBC % 0.0 /100WBC Sodium 138 (135-145) mmol/L Potassium 3.5 (3.5-5.0) mmol/L Chloride 106 (101-111) mmol/L Carbon Dioxide 23 (21-32) mmol/L Anion Gap 9.0 (6-13) BUN 17 (6-20) mg/dL Creatinine 0.7 (0.4-1.0) mg/dL Estimated GFR (MDRD) 91 (>89) Glucose 114 H (70-100) mg/dL Glycated Hemoglobin (4.6-6.2) % Estim Average Glucose (70-100) Lactic Acid (0.5-2.2) mmol/L Calcium 8.8 (8.5-10.3) mg/dL Phosphorus 3.9 (2.5-4.6) mg/dL Magnesium 2.4 (1.7-2.8) mg/dL Total Bilirubin 0.5 (0.2-1.0) mg/dL AST 81 H (10-42) IU/L ALT 46 (10-60) IU/L Alkaline Phosphatase 63 (42-121) IU/L Total Creatine Kinase 4621 H* (22-269) IU/L Total Protein 6.6 L (6.7-8.2) g/dL Albumin 3.7 (3.2-5.5) g/dL Globulin 2.9 (2.1-4.2) g/dL Albumin/Globulin Ratio 1.3 (1.0-2.2) Urine Color Urine Clarity (CLEAR) Urine pH (5.0-7.5) PH Ur Specific Matlock (1.002-1.030) Urine Protein (NEGATIVE) mg/dL Urine Glucose (UA) (NEGATIVE) mg/dL Urine Ketones (NEGATIVE) mg/dL Urine Occult Blood (NEGATIVE) Urine Nitrite (NEGATIVE) Urine Bilirubin (NEGATIVE) Urine Urobilinogen (NORMAL) E.U./dL Ur Leukocyte Esterase (NEGATIVE) Urine RBC (0-5) /HPF Urine WBC (0-5) /HPF Ur Squamous Epith Cells (<= Few) Urine Bacteria (None Seen) /HPF Urine Mucus Urine Culture Comments - Diagnostic Imaging Diagnostic Imaging Results: positive: Final report reviewed Diagnostic Imaging Comments: Head CT 02/08/17: FINDINGS: Parenchyma: No intraparenchymal hemorrhage. No evidence of mass, midline shift, or CT findings of infarction. Allen-white differentiation is distinct. Extraaxial Spaces: Normal for age. No subdural or epidural collections identified. Ventricles: Normal in size and position. Sinuses and Orbits: Imaged paranasal sinuses, orbits, and mastoids show no significant abnormality. Bones: No evidence of fracture or calvarial defect. Other: None. IMPRESSION: Normal head CT. Assessment/Plan - Problem List (1) Polysubstance overdose Impression: Patient admits to substance abuse in the past, but denies illicit drug or alcohol use. Plan: AODA recommended upon discharge. Qualifiers: Encounter type: initial encounter Injury intent: intentional self-harm Qualified Code(s): T50.902A - Poisoning by unspecified drugs, medicaments and biological substances, intentional self-harm, initial encounter (2) Rhabdomyolysis Impression: CK was noted to be only mildly elevated upon admission at 533, upon re-check elevated even farther to 4621. Patient has a history of previous rhabdomyolysis. Plan: Re-check CKs and monitor kidney function. Generous IVF resuscitation. (3) Altered mental status Impression: Patient cannot recall the events leading to admission or at times where she is at according to nursing report. Plan: at bedside and confirms this acute AMS. (4) Alcohol withdrawal Impression: Alcohol dependence is noted via chart and in history review. Patient showed signs of acute withdrawal by diaphoresis, tremors, AMS, and HTN. Plan: [facility] nursing protocol with Lorazepam IV, seizure precautions. (5) Alcoholism /alcohol abuse Impression: Patient was noted to be negative for blood alcohol at the time of admission. Plan: Continue to encourage cessation and AODA programs as out patient. (6) Depression Impression: Patient was recently started on Abilify and has a long history of depression, anxiety, and suicidal ideation. Plan: Continue Abilify, and plan for out patient Psychology appointments soon after discharge. Qualifiers: Depression Type: reactive depression Qualified Code(s): F32.9 - Major depressive disorder, single episode, unspecified
[2017-02-09] MEDS ORDERED: LORazepam 2 MG/ML VIAL IVP PRN (15:47)
[2017-02-09] MEDS ORDERED: LORazepam 0.5 MG TABLET PO PRN (15:47)
[2017-02-09] MEDS ORDERED: ENOXAPARIN 40 MG/0.4 ML SYRINGE SUBQ SCH (18:00)
[2017-02-09 19:20] LABS: CALCIUM 8.1 mg/dL (8.5-10.3); CREATININE 0.7 mg/dL (0.4-1.0)
[2017-02-09] MEDS ORDERED: POTASSIUM CHLORIDE INJ 40 MEQ in SODIUM CHLORIDE 0.9% 480 ML IV SCH (20:33)
[2017-02-10] MEDS ORDERED: POTASSIUM CHLOR 10 MEQ/100 ML 40 MEQ/400 ML BAG IV ONE (01:35)
[2017-02-10] MEDS: SODIUM CHLORIDE FLUSH 0.9% 10 ML SYRINGE IVP PRN (05:07)
[2017-02-10] MEDS: SODIUM CHLORIDE 0.9% 1,000 ML IV SCH ×3 (05:07→13:56)
[2017-02-10] MEDS: SODIUM CHLORIDE FLUSH 0.9% 10 ML SYRINGE IVP SCH ×2 (05:07→13:17)
[2017-02-10 06:14] LABS: BASOPHILS % (AUTO) 0.4 %; EOSINOPHILS # (AUTO) 0.4 10^3/uL (0.0-0.7); EOSINOPHILS % (AUTO) 6.5 %; HGB - HEMOGLOBIN 10.8 g/dL (12.0-16.0); LYMPHOCYTES # (AUTO) 1.4 10^3/uL (1.5-3.5); LYMPHOCYTES % (AUTO) 23.4 %; MEAN CORPUSCULAR HGB CONC 32.7 g/dL (32.0-36.0); MEAN CORPUSCULAR VOLUME 85.6 fL (81.0-99.0); MEAN PLATELET VOLUME 7.9 fL (7.9-10.8); MONOCYTES # (AUTO) 0.6 10^3/uL (0.0-1.0); MONOCYTES % (AUTO) 9.5 %; NEUTROPHILS # (AUTO) 3.6 10^3/uL (1.5-6.6); NEUTROPHILS % (AUTO) 60.2 %; PLT - PLATELET COUNT 330 10^3/uL (130-450); RED BLOOD COUNT 3.85 10^6/uL (4.20-5.40); RED CELL DISTRIBUTION WIDTH 17.6 % (12.0-15.0); WHITE BLOOD COUNT 6.1 x10^3/uL (4.8-10.8)
[2017-02-10 06:26] LABS: ALBUMIN 3.1 g/dL (3.2-5.5); ALBUMIN/GLOBULIN RATIO 1.2 (1.0-2.2); BILIRUBIN,TOTAL 0.2 mg/dL (0.2-1.0); CALCIUM 7.8 mg/dL (8.5-10.3); CREATININE 0.5 mg/dL (0.4-1.0); PHOSPHORUS 2.9 mg/dL (2.5-4.6); TOTAL PROTEIN 5.7 g/dL (6.7-8.2)
[2017-02-10] MEDS ORDERED: AZITHROMYCIN 250 MG TABLET PO SCH (09:00)
[2017-02-10] MEDS: ARIPiprazole 5 MG TABLET PO SCH (09:32)
--- NOTE | 2017-02-10 11:56 | PROVIDER PROGRESS NOTE ---
Subjective - Prog Note Date Prog Note Date: 02/10/17 Prog Note Time: 11:55 - Subjective Pt reports feeling: Improved Current Medications - Current Medications Current Medications: Active Medications Albuterol/Ipratropium (Duoneb) 3 ml INH Q4HR PRN PRN Reason: Wheezing Aripiprazole (Abilify) 20 mg PO DAILY [facility] Last Admin: 02/10/17 09:32 Dose: 20 mg Enoxaparin Sodium (Lovenox) 40 mg SUBQ Q24H [facility] Last Admin: 02/09/17 18:25 Dose: 40 mg Sodium Chloride (Normal Saline 0.9%) 1,000 mls @ 250 mls/hr IV .Q4H [facility] Stop: 02/11/17 11:59 Last Admin: 02/10/17 09:34 Dose: 250 mls/hr Ibuprofen (Motrin) 600 mg PO Q6HR PRN PRN Reason: Pain 1 to 4 Last Admin: 02/09/17 20:52 Dose: 600 mg Lorazepam (Ativan) 1 mg PO Q1H PRN; Protocol PRN Reason: CIWA > 8 Lorazepam (Ativan Inj (Vial)) 1 mg IVP Q30M PRN; Protocol PRN Reason: CIWA >8 Prochlorperazine Edisylate (Compazine Inj) 10 mg IVP Q6HR PRN PRN Reason: Nausea / Vomiting Sodium Chloride (Normal Saline Flush 0.9%) 10 ml IVP PRN PRN PRN Reason: NEEDED PER PROVIDER ORDERS Last Admin: 02/10/17 05:07 Dose: 10 ml Sodium Chloride (Normal Saline Flush 0.9%) 10 ml IVP Q8HR [facility] Last Admin: 02/10/17 05:07 Dose: 10 ml Temazepam (Restoril) 15 mg PO QPM PRN PRN Reason: Insomnia Alprazolam [Xanax] 0.5 mg ORAL BID PRN 03/06/16 ARIPiprazole [Aripiprazole] 20 mg PO DAILY 02/09/17 Albuterol Sulfate [Proair Hfa Inhaler] 2 puffs INH QID PRN 02/09/17 Dextroamphetamine/Amphetamine [Dextroamp-Amphetamin 20 mg Tab] 20 mg PO 1200 Dextroamphetamine/Amphetamine [Dextroamp-Amphetamin 20 mg Tab] 40 mg PO DAILY Escitalopram [Lexapro] 40 mg PO DAILY 02/09/17 Ibuprofen [Motrin] 800 mg PO TID PRN 02/09/17 Lurasidone HCl [Latuda] 40 mg PO QPM 02/09/17 Prazosin HCl 2 mg PO QPM PRN 02/09/17 buPROPion [Wellbutrin Sr] 300 mg PO DAILY 02/09/17 Objective - Vital Signs/Intake & Output Reviewed Vital Signs: Yes Vital Signs: Vital Signs x48h Temp Pulse Pulse Resp BP Pulse Ox 02/10/17 10:06 36.3 C L 79 18 126/69 99 02/10/17 08:35 92 18 02/10/17 08:05 36.4 C L 76 19 110/57 L 98 Intake & Output: Intake & Output 02/07/17 02/08/17 02/09/17 02/10/17 23:59 23:59 23:59 23:59 Intake Total 1760 Output Total 1250 Balance 510 - Objective General Appearance: positive: No acute distress, Anxious - Lab Results Fish Bones: 02/10/17 05:44 02/10/17 17:08 Assessment/Plan - Problem List (1) Polysubstance overdose Qualifiers: Encounter type: initial encounter Injury intent: intentional self-harm Qualified Code(s): T50.902A - Poisoning by unspecified drugs, medicaments and biological substances, intentional self-harm, initial encounter (6) Depression Qualifiers: Depression Type: reactive depression Qualified Code(s): F32.9 - Major depressive disorder, single episode, unspecified
[2017-02-10 16:02] VITALS: BP 134/80
[2017-02-10 17:28] LABS: BUN - BLOOD UREA NITROGEN < 5 mg/dL (6-20); CALCIUM 8.9 mg/dL (8.5-10.3); CARBON DIOXIDE - CO2 23 mmol/L (21-32); CHLORIDE 106 mmol/L (101-111); CREATININE 0.5 mg/dL (0.4-1.0); GFR - MDRD 135 (>89); GLUCOSE 122 mg/dL (70-100); SODIUM 138 mmol/L (135-145)
--- NOTE | 2017-02-13 08:33 | Discharge Plan ---
Discharge Plan Disposition: 07 Against Medical Advice Condition: Fair Diet: Regular Activity Restrictions: No Restrictions Shower Restrictions: No Driving Restrictions: No Weight Bearing: Full Weight Instruction Topics: Creatine Kinase Blood, Rhabdomyolysis Additional Instructions or Follow Up instructions: You are leaving against medical advise since you are still suffering from active rhabdomylosis. Please see your PCP within a week. Drink as much water as possible. Please report to the ED if you are not well. Do not drink alcohol or take in any illicit drugs. Take all medications as prescribed. No Smoking: If you smoke, Please STOP! Call for help. Follow-up with: Ismael Meade MD [Primary Care Provider] -
== END 2017-02-10 18:30 | disposition left against medical advice (07) | DRG 918 ==
LOC: EDUNIT# → ED 19:39 → OBS 21:58 → OBSVTOIN 02-10 07:36 → MS2 02-10 07:36
PROVIDERS: ADMIT Hospitalist; ATTEND Nurse Practitioner
DX: T50.901A Poisoning by unspecified drugs, medicaments and biological substances, accidental (unintentional), initial encounter (principal); M62.82 Rhabdomyolysis; F10.239 Alcohol dependence with withdrawal, unspecified; R41.82 Altered mental status, unspecified; F31.9 Bipolar disorder, unspecified; Y92.9 Unspecified place or not applicable; F41.0 Panic disorder [episodic paroxysmal anxiety]; F41.9 Anxiety disorder, unspecified; F43.10 Post-traumatic stress disorder, unspecified; F17.210 Nicotine dependence, cigarettes, uncomplicated; Z79.51 Long term (current) use of inhaled steroids; Z79.891 Long term (current) use of opiate analgesic; Z79.899 Other long term (current) drug therapy
CPT/HCPCS: 36415; 51702; 70450; 80048; 80053; 80306; 80307; 80320; 80329; 81001; 81003; 81025; 82550; 82977; 83036; 83605; 83735; 84100; 84484; 85025; 85610; 85730; 87040; 87086; 93005; 96361; 96365; 96366; 96372; 96374; 96375; 99285

== ENCOUNTER 2017-03-04 22:24 | Emergency (ER) | payer MEDICAID ==
[2017-03-04 22:52] LABS: MUDS CUTOFF CONCENTRATIONS CUTOFF CONC BELOW:
[2017-03-04 23:06] LABS: AMPHETAMINE SCREEN,URINE NEGATIVE (NEGATIVE); BENZODIAZEPINES SCREEN, URINE NEGATIVE (NEGATIVE); COCAINE SCREEN URINE NEGATIVE (NEGATIVE); METHADONE SCREEN, URINE NEGATIVE (NEGATIVE); METHAMPHETAMINES SCREEN, URINE NEGATIVE (NEGATIVE); OPIATE SCREEN, URINE NEGATIVE (NEGATIVE); OXYCODONE SCREEN, URINE NEGATIVE (NEGATIVE); PROPOXYPHENE SCREEN, URINE NEGATIVE (NEGATIVE); TRICYCLIC ANTIDEPRESSANT,URINE NEGATIVE (NEGATIVE)
[2017-03-04 23:18] LABS: ALBUMIN 4.4 g/dL (3.2-5.5); ALBUMIN/GLOBULIN RATIO 1.4 (1.0-2.2); ALKALINE PHOSPHATASE 69 IU/L (42-121); ALT ALANINE AMINOTRANSFERASE 23 IU/L (10-60); AST ASPARTATE AMINOTRANSFERASE 21 IU/L (10-42); BILIRUBIN,TOTAL 0.3 mg/dL (0.2-1.0); BUN - BLOOD UREA NITROGEN 13 mg/dL (6-20); CALCIUM 8.6 mg/dL (8.5-10.3); CARBON DIOXIDE - CO2 20 mmol/L (21-32); CHLORIDE 109 mmol/L (101-111); CREATININE 0.7 mg/dL (0.4-1.0); GFR - MDRD 91 (>89); GLUCOSE 107 mg/dL (70-100); HGB - HEMOGLOBIN 13.4 g/dL (12.0-16.0); LIPASE 32 U/L (22-51); MEAN CORPUSCULAR HGB CONC 31.7 g/dL (32.0-36.0); MEAN CORPUSCULAR VOLUME 84.9 fL (81.0-99.0); MEAN PLATELET VOLUME 7.6 fL (7.9-10.8); RED BLOOD COUNT 4.95 10^6/uL (4.20-5.40); RED CELL DISTRIBUTION WIDTH 16.9 % (12.0-15.0); SALICYLATE < 6.0 mg/dL; SODIUM 139 mmol/L (135-145); TOTAL PROTEIN 7.5 g/dL (6.7-8.2); WHITE BLOOD COUNT 9.7 x10^3/uL (4.8-10.8)
[2017-03-04 23:24] LABS: ACETAMINOPHEN < 10 ug/mL (10-30)
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
[2017-03-05 01:50] VITALS: BP 126/90
== END 2017-03-05 01:10 | disposition home or self-care (01) ==
LOC: EDUNIT# → ED 22:24 → SUPCPDRO 22:24 → ED 03-05 01:10
DX: F10.10 Alcohol abuse, uncomplicated (principal); Z02.89 Encounter for other administrative examinations; F17.200 Nicotine dependence, unspecified, uncomplicated
CPT/HCPCS: 36415; 80053; 80306; 80307; 80320; 80329; 83690; 99283

== ENCOUNTER → 2017-11-11 | Outpatient (CLI) | payer MEDICAID | END | disposition critical access hospital (66) | LOC: EMS 23:54 | PROVIDERS: ATTEND Surgery | DX: R45.851 Suicidal ideations (principal) | CPT/HCPCS: A0425; A0429; A0999 ==

== ENCOUNTER 2017-11-12 00:03 | Emergency (ER) | payer MEDICAID ==
[2017-11-12] MEDS ORDERED: SODIUM CHLORIDE 0.9% 1,000 ML IV ONE (00:09)
--- NOTE | 2017-11-12 00:13 | ED Physician Documentation ---
PD HPI MHE - Stated complaint Stated Complaint: ETOH/OD - Chief complaint Chief Complaint: MHE - History obtained from History obtained from: Patient, EMS - History of Present Illness Primary symptom: Suicidal ideation Timing - onset: Today Pain level max: 0 Pain level now: 0 Contributing factors: Substance abuse - ETOH (heavily intoxicated tonight) - Additional information Additional information: Patient is a 42-year-old female who presents to the emergency department after being brought in by a EMS. She had sent pictures to her daughter in [place] of her pill bottles laid out stating she was going to kill herself. Her daughter called 911, the police responded and called EMS to bring the patient here. Patient states that she is depressed. States she is unsure if she is suicidal. She also states that her son at some point in the past. She states she has attempted suicide before, last was last year. Review of Systems Unable to obtain: Intoxicated Ten Systems: 10 systems reviewed and negative Constitutional: denies: Fever, Chills Ears: denies: Ear pain Nose: denies: Rhinorrhea / runny nose, Congestion Respiratory: denies: Cough GI: denies: Abdominal Pain, Nausea, Vomiting, Diarrhea Skin: denies: Rash Musculoskeletal: denies: Neck pain, Back pain Neurologic: denies: Focal weakness, Numbness, Headache PD PAST MEDICAL HISTORY - Past Medical History Cardiovascular: None Respiratory: None Endocrine/Autoimmune: None GI: None NETWORK SYSTEMS CONSULTANT: None : None HEENT: None Psych: Depression, Post traumatic stress disorder Musculoskeletal: None Derm: None - Past Surgical History Past Surgical History: No /NETWORK SYSTEMS CONSULTANT: section, Breast implants Neuro: Other - Present Medications Home Medications: Ambulatory Orders Medication Instructions Recorded Confirmed Alprazolam [Xanax] 0.5 mg ORAL BID PRN 03/06/16 03/04/17 ARIPiprazole [Aripiprazole] 20 mg PO DAILY 02/09/17 03/04/17 Albuterol Sulfate [Proair Hfa 2 puffs INH QID PRN 02/09/17 03/04/17 Inhaler] Escitalopram [Lexapro] 40 mg PO DAILY 02/09/17 03/04/17 Lurasidone HCl [Latuda] 40 mg PO QPM 02/09/17 03/04/17 Prazosin HCl 2 mg PO QPM PRN 02/09/17 03/04/17 buPROPion [Wellbutrin Sr] 300 mg PO DAILY 02/09/17 03/04/17 Dextroamphetamine/Amphetamine 10 mg PO BID 11/12/17 11/12/17 [Dextroamp-Amphetamin 10 mg Tab] hydrOXYzine HCl [Hydroxyzine HCl] 50 mg PO TID PRN 11/12/17 11/12/17 - Allergies Allergies/Adverse Reactions: Allergies Allergy/AdvReac Type Severity Reaction Status Date / Time No Known Drug Allergies Allergy Verified 11/12/17 00:37 - Social History Does the pt smoke?: Yes Smoking Status: Current every day smoker Does the pt drink ETOH?: Yes Does the pt have substance abuse?: No - Immunizations Immunizations are current?: Yes - POLST Patient has POLST: No POLST Status: Full Code PD ED PE NORMAL - Vitals Vital signs reviewed: Yes - General General: Alert and oriented X 3, No acute distress, Other (intoxicated) - HEENT HEENT: Moist mucous membranes, Other (conjunctival injection B) - Neck Neck: Supple, no meningeal sign - Cardiac Cardiac: RRR, Strong equal pulses - Respiratory Respiratory: No respiratory distress, Clear bilaterally - Abdomen Abdomen: Soft, Non tender, Non distended - Back Back: No spinal TTP - Derm Derm: Warm and dry, No rash - Extremities Extremities: No deformity, No edema - Neuro Neuro: Alert and oriented X 3 - Psych Psych: Other (intoxicated, tearful) Results - Vitals Vitals: Vital Signs - 24 hr 11/12/17 11/12/17 11/12/17 00:07 02:06 04:35 Temperature 36.5 C Heart Rate 103 H 95 91 Respiratory 18 16 13 Rate Blood Pressure 118/89 H 95/65 103/63 O2 Saturation 95 98 98 11/12/17 05:31 Temperature Heart Rate 94 Respiratory 16 Rate Blood Pressure 116/75 O2 Saturation 97 Oxygen O2 Source Room air - EKG (time done) 0402 Rate: Rate (enter#) (85) Rhythm: NSR [place]: Normal Intervals: Normal IA QRS: Normal Ischemia: Normal ST segments - Labs Labs: Laboratory Tests 11/12/17 11/12/17 11/12/17 00:25 00:25 00:25 WBC 12.9 H RBC 5.04 Hgb 13.9 Hct 41.6 MCV 82.6 MCH 27.7 MCHC 33.5 RDW 17.2 H Plt Count 381 MPV 8.1 Neut # (Auto) Not Reportable Lymph # (Auto) Not Reportable [place] # (Auto) Not Reportable Eos # (Auto) Not Reportable Baso # (Auto) Not Reportable Absolute Nucleated RBC Not Reportable Total Counted 100 Band Neuts % (Manual) 1 Reactive Lymphs % (Man) 7 Abnorm Lymph % (Manual) 0 Nucleated RBC % Not Reportable Neutrophils # (Manual) 7.5 H Lymphocytes # (Manual) 3.2 Monocytes # (Manual) 1.0 Eosinophils # (Manual) 1.2 H Basophils # (Manual) 0.0 Differential Comment MANUAL DIFFERENTIAL Platelet Estimate NORMAL (130-450,000) RBC Morph Micro Appear NORMAL APPEARANCE Sodium 139 Potassium 3.1 L Chloride 108 Carbon Dioxide 18 L Anion Gap 13.0 BUN 13 Creatinine 0.7 Estimated GFR (MDRD) 91 Glucose 107 H Calcium 9.4 Total Bilirubin 0.4 AST 21 ALT 19 Alkaline Phosphatase 74 Total Protein 8.5 H Albumin 4.7 Globulin 3.8 Albumin/Globulin Ratio 1.2 Lipase 31 TSH 4.28 Urine Color Urine Clarity Urine pH Ur Specific [place] Urine Protein Urine Glucose (UA) Urine Ketones Urine Occult Blood Urine Nitrite Urine Bilirubin Urine Urobilinogen Ur Leukocyte Esterase Ur Microscopic Review Urine Culture Comments Urine HCG, Qual Salicylates < 6.0 Urine Opiates Screen Ur Oxycodone Screen Urine Methadone Screen Ur Propoxyphene Screen Acetaminophen < 10 L Ur Barbiturates Screen Ur Tricyclics Screen Ur Phencyclidine Scrn Ur Amphetamine Screen U Methamphetamines Scrn U Benzodiazepines Scrn Urine Cocaine Screen U Cannabinoids Screen Ethyl Alcohol 210.8 11/12/17 11/12/17 00:35 00:35 WBC RBC Hgb Hct MCV MCH MCHC RDW Plt Count MPV Neut # (Auto) Lymph # (Auto) [place] # (Auto) Eos # (Auto) Baso # (Auto) Absolute Nucleated RBC Total Counted Band Neuts % (Manual) Reactive Lymphs % (Man) Abnorm Lymph % (Manual) Nucleated RBC % Neutrophils # (Manual) Lymphocytes # (Manual) Monocytes # (Manual) Eosinophils # (Manual) Basophils # (Manual) Differential Comment Platelet Estimate RBC Morph Micro Appear Sodium Potassium Chloride Carbon Dioxide Anion Gap BUN Creatinine Estimated GFR (MDRD) Glucose Calcium Total Bilirubin AST ALT Alkaline Phosphatase Total Protein Albumin Globulin Albumin/Globulin Ratio Lipase TSH Urine Color YELLOW Urine Clarity CLEAR Urine pH 5.5 Ur Specific [place] 1.010 Urine Protein NEGATIVE Urine Glucose (UA) NEGATIVE Urine Ketones NEGATIVE Urine Occult Blood TRACE-INTA Urine Nitrite NEGATIVE Urine Bilirubin NEGATIVE Urine Urobilinogen 0.2 (NORMAL) Ur Leukocyte Esterase NEGATIVE Ur Microscopic Review NOT INDICATED Urine Culture Comments NOT INDICATED Urine HCG, Qual NEGATIVE Salicylates Urine Opiates Screen NEGATIVE Ur Oxycodone Screen NEGATIVE Urine Methadone Screen NEGATIVE Ur Propoxyphene Screen NEGATIVE Acetaminophen Ur Barbiturates Screen NEGATIVE Ur Tricyclics Screen NEGATIVE Ur Phencyclidine Scrn NEGATIVE Ur Amphetamine Screen NEGATIVE U Methamphetamines Scrn NEGATIVE U Benzodiazepines Scrn POSITIVE H Urine Cocaine Screen NEGATIVE U Cannabinoids Screen NEGATIVE Ethyl Alcohol PD MEDICAL DECISION MAKING - ED course Complexity details: reviewed results, considered differential, d/w patient ED course: Patient is a 42-year-old female who presents to the emergency department with alcohol intoxication and suicidal ideation. There is a police affidavit on the chart. She was allowed to sober in the emergency department and [facility] evaluation in the morning when she is clinically sober. She will likely need either social work or [facility] consult. This document was made in part using voice recognition software. While efforts are made to proofread this document, sound alike and grammatical errors may occur. - Sepsis Event Vital Signs: Vital Signs - 24 hr 11/12/17 11/12/17 11/12/17 00:07 02:06 04:35 Temperature 36.5 C Heart Rate 103 H 95 91 Respiratory 18 16 13 Rate Blood Pressure 118/89 H 95/65 103/63 O2 Saturation 95 98 98 11/12/17 05:31 Temperature Heart Rate 94 Respiratory 16 Rate Blood Pressure 116/75 O2 Saturation 97 Oxygen O2 Source Room air Departure - Departure Clinical Impression: Suicidal ideation, ETOH abuse Condition: Stable
[2017-11-12 00:45] LABS: BASOPHILS % (AUTO) 0.9 %; EOSINOPHILS % (AUTO) 14.3 %; HGB - HEMOGLOBIN 13.9 g/dL (12.0-16.0); LYMPHOCYTES % (AUTO) 23.5 %; MEAN CORPUSCULAR HEMOGLOBIN 27.7 pg (27.0-31.0); MEAN CORPUSCULAR HGB CONC 33.5 g/dL (32.0-36.0); MEAN CORPUSCULAR VOLUME 82.6 fL (81.0-99.0); MEAN PLATELET VOLUME 8.1 fL (7.9-10.8); MONOCYTES % (AUTO) 4.7 %; NEUTROPHILS % (AUTO) 56.6 %; PLT - PLATELET COUNT 381 10^3/uL (130-450); RED BLOOD COUNT 5.04 10^6/uL (4.20-5.40); RED CELL DISTRIBUTION WIDTH 17.2 % (12.0-15.0); WHITE BLOOD COUNT 12.9 x10^3/uL (4.8-10.8)
[2017-11-12 00:46] LABS: MUDS CUTOFF CONCENTRATIONS CUTOFF CONC BELOW:
[2017-11-12 00:48] LABS: ABNORMAL LYMPHS % (MANUAL) 0 %
[2017-11-12 00:53] LABS: BILIRUBIN,URINE NEGATIVE (NEGATIVE); GLUCOSE, URINE (UA) NEGATIVE (NEGATIVE); KETONES,URINE (UA) NEGATIVE (NEGATIVE); LEUKOCYTE ESTERASE, URINE NEGATIVE (NEGATIVE); NITRITE,URINE NEGATIVE (NEGATIVE); OCCULT BLOOD,URINE TRACE-INTA (NEGATIVE); PH,URINE 5.5 PH (5.0-7.5); PROTEIN,URINE NEGATIVE (NEGATIVE); UROBILINOGEN,URINE 0.2 (NORMAL) E.U./dL (NORMAL)
[2017-11-12 00:54] LABS: ALBUMIN 4.7 g/dL (3.2-5.5); ALBUMIN/GLOBULIN RATIO 1.2 (1.0-2.2); ALKALINE PHOSPHATASE 74 IU/L (42-121); ALT ALANINE AMINOTRANSFERASE 19 IU/L (10-60); AST ASPARTATE AMINOTRANSFERASE 21 IU/L (10-42); BILIRUBIN,TOTAL 0.4 mg/dL (0.2-1.0); BUN - BLOOD UREA NITROGEN 13 mg/dL (6-20); CALCIUM 9.4 mg/dL (8.5-10.3); CARBON DIOXIDE - CO2 18 mmol/L (21-32); CHLORIDE 108 mmol/L (101-111); CREATININE 0.7 mg/dL (0.4-1.0); GFR - MDRD 91 (>89); GLUCOSE 107 mg/dL (70-100); LIPASE 31 U/L (22-51); SALICYLATE < 6.0 mg/dL; SODIUM 139 mmol/L (135-145); TOTAL PROTEIN 8.5 g/dL (6.7-8.2)
[2017-11-12 00:56] LABS: CLARITY,URINE CLEAR (CLEAR); HCG UR QUAL NEGATIVE
[2017-11-12 01:03] LABS: AMPHETAMINE SCREEN,URINE NEGATIVE (NEGATIVE); BENZODIAZEPINES SCREEN, URINE POSITIVE (NEGATIVE); COCAINE SCREEN URINE NEGATIVE (NEGATIVE); METHADONE SCREEN, URINE NEGATIVE (NEGATIVE); METHAMPHETAMINES SCREEN, URINE NEGATIVE (NEGATIVE); OPIATE SCREEN, URINE NEGATIVE (NEGATIVE); OXYCODONE SCREEN, URINE NEGATIVE (NEGATIVE); PROPOXYPHENE SCREEN, URINE NEGATIVE (NEGATIVE); TRICYCLIC ANTIDEPRESSANT,URINE NEGATIVE (NEGATIVE)
[2017-11-12 01:06] LABS: ACETAMINOPHEN < 10 ug/mL (10-30)
[2017-11-12 01:08] LABS: BAND NEUTROPHILS % (MANUAL) 1 %; DIFFERENTIAL COMMENT MANUAL DIFFERENTIAL; EOSINOPHILS # (MANUAL) 1.2 10^3/uL (0-0.7); LYMPHOCYTES # (MANUAL) 3.2 10^3/uL (1.5-3.5); LYMPHOCYTES % (MANUAL) 18 %; NEUTROPHILS # (MANUAL) 7.5 10^3/uL (1.5-6.6); NEUTROPHILS % (MANUAL) 57 %; PLATELET ESTIMATE, MANUAL NORMAL (130-450,000) (NORMAL); RBC MORPHOLOGY (MULTIPLE) NORMAL APPEARANCE (NORMAL)
[2017-11-12] MEDS ORDERED: POTASSIUM BICARB 25 MEQ TABLET PO STA (08:48)
[2017-11-12 11:21] VITALS: BP 124/84
== END 2017-11-12 13:38 | disposition home or self-care (01) ==
LOC: EDUNIT# → ED 00:03
DX: R45.851 Suicidal ideations (principal); F10.120 Alcohol abuse with intoxication, uncomplicated; F17.200 Nicotine dependence, unspecified, uncomplicated
CPT/HCPCS: 36415; 51701; 80053; 80306; 80307; 80320; 80329; 81003; 81025; 83690; 84443; 85025; 93005; 96360; 96361; 99284; 99285; A9270; 81001; 87086

== ENCOUNTER 2017-12-06 11:02 | Outpatient (CLI) | payer MEDICAID ==
[2017-12-06 19:10] LABS: ALBUMIN 4.1 g/dL (3.2-5.5); ALBUMIN/GLOBULIN RATIO 1.4 (1.0-2.2); ALKALINE PHOSPHATASE 68 IU/L (42-121); ALT ALANINE AMINOTRANSFERASE 24 IU/L (10-60); AST ASPARTATE AMINOTRANSFERASE 24 IU/L (10-42); BILIRUBIN,TOTAL 0.5 mg/dL (0.2-1.0); BUN - BLOOD UREA NITROGEN 16 mg/dL (6-20); CALCIUM 8.9 mg/dL (8.5-10.3); CARBON DIOXIDE - CO2 23 mmol/L (21-32); CHLORIDE 105 mmol/L (101-111); CHOL/HDL RATIO 3.9 (<4.4); CHOLESTEROL 229 mg/dL; CREATININE 0.5 mg/dL (0.4-1.0); GFR - MDRD 134 (>89); GLUCOSE 87 mg/dL (70-100); HDL CHOLESTEROL 58 mg/dL; LDL CHOLESTEROL,CALCULATED 138 mg/dL; LDL/HDL RATIO 2.4 (<4.4); SODIUM 134 mmol/L (135-145); VLDL CHOLESTEROL 33 mg/dL
[2017-12-06 19:11] LABS: BASOPHILS % (AUTO) 0.6 %; EOSINOPHILS % (AUTO) 15.8 %; HGB - HEMOGLOBIN 13.1 g/dL (12.0-16.0); LYMPHOCYTES % (AUTO) 23.9 %; MEAN CORPUSCULAR HEMOGLOBIN 27.4 pg (27.0-31.0); MEAN CORPUSCULAR HGB CONC 32.1 g/dL (32.0-36.0); MEAN CORPUSCULAR VOLUME 85.3 fL (81.0-99.0); MEAN PLATELET VOLUME 8.1 fL (7.9-10.8); MONOCYTES % (AUTO) 8.1 %; NEUTROPHILS % (AUTO) 51.6 %; PLT - PLATELET COUNT 382 10^3/uL (130-450); RED BLOOD COUNT 4.79 10^6/uL (4.20-5.40); WHITE BLOOD COUNT 7.9 x10^3/uL (4.8-10.8)
[2017-12-06 19:22] LABS: ABNORMAL LYMPHS % (MANUAL) 0 %; BAND NEUTROPHILS % (MANUAL) 0 %
[2017-12-06 20:48] LABS: EOSINOPHILS # (MANUAL) 1.1 10^3/uL (0-0.7); LYMPHOCYTES # (MANUAL) 1.6 10^3/uL (1.5-3.5); LYMPHOCYTES % (MANUAL) 17 %; MONOCYTES # (MANUAL) 0.8 10^3/uL (0.0-1.0); NEUTROPHILS # (MANUAL) 4.4 10^3/uL (1.5-6.6); NEUTROPHILS % (MANUAL) 56 %
[2017-12-06 20:49] LABS: DIFFERENTIAL COMMENT MANUAL DIFFERENTIAL; PLATELET ESTIMATE, MANUAL NORMAL (130-450,000) (NORMAL); PLATELET MORPHOLOGY NORMAL APPEARANCE (NORMAL); RBC MORPHOLOGY (MULTIPLE) NORMAL APPEARANCE (NORMAL)
== END 2017-12-06 11:03 | disposition home or self-care (01) ==
LOC: LAB.N 11:02
PROVIDERS: ATTEND Nurse Practitioner Gerontology
DX: Z79.899 Other long term (current) drug therapy (principal); R63.5 Abnormal weight gain
CPT/HCPCS: 36415; 80053; 80061; 83721; 84443; 85025

== ENCOUNTER 2019-04-30 08:18 | Emergency (ER) | payer MEDICAID ==
[2019-04-30 09:07] VITALS: BP 155/65
[2019-04-30] MEDS ORDERED: ALPRAZolam 0.25 MG TABLET PO STA (09:21)
--- NOTE | 2019-04-30 09:23 | ED Physician Documentation ---
PD HPI MHE - Stated complaint Stated Complaint: ANXIETY - Chief complaint Chief Complaint: MHE - History obtained from History obtained from: Patient - History of Present Illness Primary symptom: Anxiety (44-year-old woman with chronic anxiety presents with an exacerbation of same due to news about the coronavirus and drinking too much in the way of energy drinks. Since last night she has had episodic shortness of breath, muscle aches and headache similar to prior episodes of anxiety for which she used to take alprazolam. She is not currently on that. She denies SI or HI. No fevers.) Review of Systems Constitutional: reports: Myalgias. denies: Fever, Chills Cardiac: denies: Chest pain / pressure, Palpitations Respiratory: reports: Dyspnea. denies: Cough PD PAST MEDICAL HISTORY - Past Medical History Cardiovascular: None Respiratory: None Endocrine/Autoimmune: None GI: None CLINICAL TRIALS DATA COORDINATOR: None : None HEENT: None Psych: Depression, Post traumatic stress disorder Musculoskeletal: None Derm: None - Past Surgical History Past Surgical History: No /CLINICAL TRIALS DATA COORDINATOR: section, Breast implants Neuro: Other - Present Medications Home Medications: Ambulatory Orders Medication Instructions Recorded Confirmed ARIPiprazole [Aripiprazole] 20 mg PO DAILY 02/09/17 04/30/19 Escitalopram [Lexapro] 20 mg PO DAILY 02/09/17 04/30/19 Lurasidone HCl [Latuda] 40 mg PO QPM 02/09/17 04/30/19 Prazosin HCl 2 mg PO QPM PRN 02/09/17 04/30/19 Dextroamphetamine/Amphetamine 20 mg PO BID #21 tablet 11/12/17 04/30/19 [Adderall 20 mg Tablet] Dextroamphetamine/Amphetamine 1 tab PO TID 11/12/17 04/30/19 [Dextroamp-Amphetamin 20 mg Tab] Escitalopram Oxalate [Lexapro] 20 mg PO DAILY #7 tablet 11/12/17 04/30/19 buPROPion HCl [Bupropion HCl Sr] 100 mg PO BID 11/12/17 04/30/19 buPROPion HCl [Bupropion HCl Sr] 100 mg PO BID #14 tab.er.12h 11/12/17 04/30/19 hydrOXYzine HCL [Hydroxyzine HCl] 50 mg PO TID PRN 11/12/17 04/30/19 Alprazolam [Xanax] 0.5 - 1 tab PO Q8H PRN #7 tablet 04/30/19 - Allergies Allergies/Adverse Reactions: Allergies Allergy/AdvReac Type Severity Reaction Status Date / Time No Known Drug Allergies Allergy Verified 04/30/19 08:27 - Social History Does the pt smoke?: Yes Smoking Status: Current every day smoker Does the pt drink ETOH?: Yes Does the pt have substance abuse?: No - Immunizations Immunizations are current?: Yes - POLST Patient has POLST: No POLST Status: Full Code PD ED PE NORMAL - Vitals Vital signs reviewed: Yes - General General: Alert and oriented X 3, Other (Slightly anxious but otherwise in no distress) - HEENT HEENT: PERRL - Neck Neck: Supple, no meningeal sign, No bony TTP - Cardiac Cardiac: RRR, No murmur, Other (Pulse lower on my exam, closer to 100) - Respiratory Respiratory: No respiratory distress, Clear bilaterally - Abdomen Abdomen: Non tender - Extremities Extremities: No edema, No calf tenderness / cord - Neuro Neuro: Alert and oriented X 3, Normal speech Results - Vitals Vitals: Vital Signs - 24 hr 04/30/19 04/30/19 08:23 09:06 Temperature 37.1 C 37.1 C Heart Rate 133 H 112 H Respiratory 16 16 Rate Blood Pressure 164/110 H 155/65 H O2 Saturation 97 98 Oxygen O2 Source Room air PD MEDICAL DECISION MAKING - ED course ED course: 44-year-old woman with an exacerbation of chronic anxiety to current events. She is prescribed some alprazolam, a limited number pending follow-up with her prescriber at [facility]. Departure - Departure Disposition: 01 Home, Self Care Clinical Impression: Anxiety Condition: Good Record reviewed to determine appropriate education?: Yes Instructions: ED Panic Attack Prescriptions: Alprazolam [Xanax] 0.5 - 1 tab PO Q8H PRN #7 tablet PRN Reason: Anxiety Comments: Follow-up with [facility] at [phone] to schedule psychiatric care and counseling.
== END 2019-04-30 09:29 | disposition home or self-care (01) ==
LOC: ED 08:18
DX: R41.9 Unspecified symptoms and signs involving cognitive functions and awareness (principal); F17.210 Nicotine dependence, cigarettes, uncomplicated
CPT/HCPCS: 99282; 99283; A9270

== ENCOUNTER 2019-05-24 07:15 | Outpatient (CLI) | payer MEDICAID | END 2019-05-24 07:16 | disposition critical access hospital (66) | LOC: EMS 07:15 | PROVIDERS: ATTEND Surgery | DX: R46.89 Other symptoms and signs involving appearance and behavior (principal) | CPT/HCPCS: A0425; A0429; A0999 ==

== ENCOUNTER 2019-05-24 07:31 | Emergency (ER) | payer MEDICAID ==
[2019-05-24] MEDS ORDERED: LORazepam 2 MG/ML VIAL IM STA (07:44)
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
[2019-05-24 08:07] LABS: BASOPHILS # (AUTO) 0.1 10^3/uL (0.0-0.1); BASOPHILS % (AUTO) 0.4 %; EOSINOPHILS % (AUTO) 0.1 %; HGB - HEMOGLOBIN 11.4 g/dL (12.0-16.0); LYMPHOCYTES # (AUTO) 2.1 10^3/uL (1.5-3.5); LYMPHOCYTES % (AUTO) 9.3 %; MEAN CORPUSCULAR HEMOGLOBIN 22.8 pg (27.0-31.0); MEAN CORPUSCULAR VOLUME 71.3 fL (81.0-99.0); MEAN PLATELET VOLUME 9.5 fL (7.9-10.8); MONOCYTES # (AUTO) 1.7 10^3/uL (0.0-1.0); MONOCYTES % (AUTO) 7.4 %; NEUTROPHILS # (AUTO) 18.7 10^3/uL (1.5-6.6); NEUTROPHILS % (AUTO) 81.7 %; PLT - PLATELET COUNT 559 10^3/uL (130-450); RED BLOOD COUNT 4.99 10^6/uL (4.20-5.40); RED CELL DISTRIBUTION WIDTH 17.7 % (12.0-15.0); WHITE BLOOD COUNT 22.9 x10^3/uL (4.8-10.8)
[2019-05-24 08:20] LABS: ALBUMIN 5.1 g/dL (3.2-5.5); ALBUMIN/GLOBULIN RATIO 1.5 (1.0-2.2); ALKALINE PHOSPHATASE 80 IU/L (42-121); ALT ALANINE AMINOTRANSFERASE 18 IU/L (10-60); AST ASPARTATE AMINOTRANSFERASE 39 IU/L (10-42); BILIRUBIN,TOTAL 0.8 mg/dL (0.2-1.0); BUN - BLOOD UREA NITROGEN 11 mg/dL (6-20); CALCIUM 8.7 mg/dL (8.5-10.3); CARBON DIOXIDE - CO2 19 mmol/L (21-32); CHLORIDE 92 mmol/L (101-111); CREATININE 0.8 mg/dL (0.4-1.0); GLUCOSE 121 mg/dL (70-100); LIPASE 22 U/L (22-51); SODIUM 126 mmol/L (135-145); TOTAL PROTEIN 8.6 g/dL (6.7-8.2)
[2019-05-24 08:32] LABS: MUDS CUTOFF CONCENTRATIONS CUTOFF CONC BELOW:
[2019-05-24 08:35] LABS: BILIRUBIN,URINE NEGATIVE (NEGATIVE); GLUCOSE, URINE (UA) NEGATIVE (NEGATIVE); KETONES,URINE (UA) NEGATIVE (NEGATIVE); LEUKOCYTE ESTERASE, URINE NEGATIVE (NEGATIVE); NITRITE,URINE NEGATIVE (NEGATIVE); OCCULT BLOOD,URINE NEGATIVE (NEGATIVE); PROTEIN,URINE NEGATIVE (NEGATIVE); UROBILINOGEN,URINE 0.2 (NORMAL) E.U./dL (NORMAL)
[2019-05-24 08:44] LABS: CLARITY,URINE CLEAR (CLEAR)
[2019-05-24 08:45] LABS: AMPHETAMINE SCREEN,URINE NEGATIVE (NEGATIVE); BENZODIAZEPINES SCREEN, URINE NEGATIVE (NEGATIVE); COCAINE SCREEN URINE NEGATIVE (NEGATIVE); METHADONE SCREEN, URINE NEGATIVE (NEGATIVE); METHAMPHETAMINES SCREEN, URINE NEGATIVE (NEGATIVE); OPIATE SCREEN, URINE NEGATIVE (NEGATIVE); OXYCODONE SCREEN, URINE NEGATIVE (NEGATIVE); PROPOXYPHENE SCREEN, URINE NEGATIVE (NEGATIVE); TRICYCLIC ANTIDEPRESSANT,URINE NEGATIVE (NEGATIVE)
[2019-05-24 08:47] LABS: HCG UR QUAL NEGATIVE
[2019-05-24] MEDS ORDERED: LORazepam 1 MG TABLET PO STA (09:34)
[2019-05-24] MEDS ORDERED: IBUPROFEN 600 MG TABLET PO STA (13:47)
[2019-05-24] MEDS ORDERED: diazePAM INJ 5 MG/ML SYRINGE IM STA (13:47)
[2019-05-24] MEDS ORDERED: POTASSIUM CHLORIDE 20 MEQ TABLET PO STA (15:36)
[2019-05-24 15:53] VITALS: BP 115/77
[2019-05-24 16:01] LABS: BASOPHILS % (AUTO) 0.4 %; EOSINOPHILS % (AUTO) 0.1 %; HGB - HEMOGLOBIN 11.7 g/dL (12.0-16.0); LYMPHOCYTES % (AUTO) 8.7 %; MEAN CORPUSCULAR HEMOGLOBIN 22.8 pg (27.0-31.0); MEAN CORPUSCULAR HGB CONC 32.1 g/dL (32.0-36.0); MEAN CORPUSCULAR VOLUME 70.8 fL (81.0-99.0); MEAN PLATELET VOLUME 9.6 fL (7.9-10.8); MONOCYTES % (AUTO) 5.7 %; NEUTROPHILS % (AUTO) 84.3 %; PLT - PLATELET COUNT 521 10^3/uL (130-450); RED BLOOD COUNT 5.14 10^6/uL (4.20-5.40); RED CELL DISTRIBUTION WIDTH 17.9 % (12.0-15.0); WHITE BLOOD COUNT 22.5 x10^3/uL (4.8-10.8)
[2019-05-24 16:03] LABS: ABNORMAL LYMPHS % (MANUAL) 0 %
[2019-05-24 16:14] LABS: ALBUMIN 4.9 g/dL (3.2-5.5); ALBUMIN/GLOBULIN RATIO 1.4 (1.0-2.2); BILIRUBIN,TOTAL 1.3 mg/dL (0.2-1.0); CALCIUM 9.1 mg/dL (8.5-10.3); CREATININE 0.8 mg/dL (0.4-1.0); TOTAL PROTEIN 8.4 g/dL (6.7-8.2)
[2019-05-24 16:18] LABS: BAND NEUTROPHILS % (MANUAL) 1 %; BASOPHILS # (MANUAL) 0.2 10^3/uL (0-0.1); BASOPHILS % (MANUAL) 1 %; LYMPHOCYTES # (MANUAL) 1.4 10^3/uL (1.5-3.5); LYMPHOCYTES % (MANUAL) 6 %; MONOCYTES # (MANUAL) 0.9 10^3/uL (0.0-1.0); PLATELET ESTIMATE, MANUAL INCREASED (>450,000) (NORMAL); PLATELET MORPHOLOGY NORMAL APPEARANCE (NORMAL)
[2019-05-24 16:19] LABS: DIFFERENTIAL COMMENT MANUAL DIFFERENTIAL
--- NOTE | 2019-05-24 22:44 | ED Physician Documentation ---
PD HPI MHE - Stated complaint Stated Complaint: MHE - Chief complaint Chief Complaint: MHE - History obtained from History obtained from: Other (Patient signed out to me at shift change by Dr. Angelica Cazares, This patient is been medically cleared been evaluated by the [facility]'s full history and physical for further details.) Review of Systems Constitutional: reports: Reviewed and negative Eyes: reports: Reviewed and negative Ears: reports: Reviewed and negative Nose: reports: Reviewed and negative Throat: reports: Reviewed and negative Cardiac: reports: Reviewed and negative Respiratory: reports: Reviewed and negative GI: reports: Reviewed and negative : reports: Reviewed and negative Skin: reports: Reviewed and negative Musculoskeletal: reports: Reviewed and negative Neurologic: reports: Reviewed and negative Psychiatric: reports: Depressed, Homicidal, Delusions Endocrine: reports: Reviewed and negative Immunocompromised: reports: Reviewed and negative PD PAST MEDICAL HISTORY - Past Medical History Cardiovascular: None Respiratory: None Neuro: None Endocrine/Autoimmune: None GI: None 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 : None HEENT: None Psych: Depression, Post traumatic stress disorder Musculoskeletal: None Derm: None - Past Surgical History Past Surgical History: No /SKIP MINER: section, Breast implants Neuro: Other - Present Medications Home Medications: Ambulatory Orders Medication Instructions Recorded Confirmed ARIPiprazole [Aripiprazole] 20 mg PO QPM 02/09/17 04/30/19 Prazosin HCl 2 mg PO QPM PRN 02/09/17 04/30/19 Escitalopram Oxalate [Lexapro] 20 mg PO DAILY #7 tablet 11/12/17 04/30/19 Naltrexone HCl 50 mg DAILY 05/24/19 05/24/19 lamoTRIgine [LaMICtal] 100 mg PO DAILY 05/24/19 05/24/19 - Allergies Allergies/Adverse Reactions: Allergies Allergy/AdvReac Type Severity Reaction Status Date / Time No Known Drug Allergies Allergy Verified 05/24/19 08:00 - Social History Does the pt smoke?: Yes Smoking Status: Current every day smoker Does the pt drink ETOH?: Yes Does the pt have substance abuse?: No - Immunizations Immunizations are current?: Yes - POLST Patient has POLST: No POLST Status: Full Code PD ED PE NORMAL - Vitals Vital signs reviewed: Yes - General General: Alert and oriented X 3, No acute distress - HEENT HEENT: PERRL - Neck Neck: Supple, no meningeal sign - Cardiac Cardiac: RRR, No murmur - Respiratory Respiratory: Clear bilaterally - Abdomen Abdomen: Normal bowel sounds, Soft, Non tender, Non distended - Derm Derm: Warm and dry - Extremities Extremities: No deformity - Neuro Neuro: Alert and oriented X 3 - Psych Psych: Other (manic) Results - Vitals Vitals: Vital Signs - 24 hr 05/24/19 05/24/19 05/24/19 07:40 08:02 13:44 Temperature 36.8 C 37.5 C 37.3 C Heart Rate 120 H 118 H 115 H Respiratory 24 24 20 Rate Blood Pressure 162/100 H 165/89 H 124/84 H O2 Saturation 98 99 97 05/24/19 05/24/19 15:52 23:35 Temperature 36.4 C L Heart Rate 100 Respiratory 20 16 Rate Blood Pressure 115/77 O2 Saturation 97 Oxygen O2 Source Room air - Labs Labs: Laboratory Tests 05/24/19 05/24/19 05/24/19 08:00 08:00 08:25 WBC 22.9 H RBC 4.99 Hgb 11.4 L Hct 35.6 L MCV 71.3 L MCH 22.8 L MCHC 32.0 RDW 17.7 H Plt Count 559 H MPV 9.5 Neut # (Auto) 18.7 H Lymph # (Auto) 2.1 [place] # (Auto) 1.7 H Eos # (Auto) 0.0 Baso # (Auto) 0.1 Absolute Nucleated RBC 0.00 Total Counted Band Neuts % (Manual) Abnorm Lymph % (Manual) Nucleated RBC % 0.0 Neutrophils # (Manual) Lymphocytes # (Manual) Monocytes # (Manual) Eosinophils # (Manual) Basophils # (Manual) Differential Comment Manual Slide Review Indicated WBC Morphology Platelet Estimate Platelet Morphology RBC Morph Micro Appear Sodium 126 L Potassium 2.9 L Chloride 92 L Carbon Dioxide 19 L Anion Gap 15.0 H BUN 11 Creatinine 0.8 Estimated GFR (MDRD) 77 L Glucose 121 H Calcium 8.7 Total Bilirubin 0.8 AST 39 ALT 18 Alkaline Phosphatase 80 Total Protein 8.6 H Albumin 5.1 Globulin 3.5 Albumin/Globulin Ratio 1.5 Lipase 22 Urine Color YELLOW Urine Clarity CLEAR Urine pH 6.0 Ur Specific [place] <=1.005 Urine Protein NEGATIVE Urine Glucose (UA) NEGATIVE Urine Ketones NEGATIVE Urine Occult Blood NEGATIVE Urine Nitrite NEGATIVE Urine Bilirubin NEGATIVE Urine Urobilinogen 0.2 (NORMAL) Ur Leukocyte Esterase NEGATIVE Ur Microscopic Review NOT INDICATED Urine Culture Comments NOT INDICATED Urine HCG, Qual Urine Opiates Screen NEGATIVE Ur Oxycodone Screen NEGATIVE Urine Methadone Screen NEGATIVE Ur Propoxyphene Screen NEGATIVE Ur Barbiturates Screen NEGATIVE Ur Tricyclics Screen NEGATIVE Ur Phencyclidine Scrn NEGATIVE Ur Amphetamine Screen NEGATIVE U Methamphetamines Scrn NEGATIVE U Benzodiazepines Scrn NEGATIVE Urine Cocaine Screen NEGATIVE U Cannabinoids Screen NEGATIVE Ethyl Alcohol < 5.0 05/24/19 05/24/19 05/24/19 08:25 15:54 15:54 WBC 22.5 H RBC 5.14 Hgb 11.7 L Hct 36.4 L MCV 70.8 L MCH 22.8 L MCHC 32.1 RDW 17.9 H Plt Count 521 H MPV 9.6 Neut # (Auto) Not Reportable Lymph # (Auto) Not Reportable [place] # (Auto) Not Reportable Eos # (Auto) Not Reportable Baso # (Auto) Not Reportable Absolute Nucleated RBC Not Reportable Total Counted 100 Band Neuts % (Manual) 1 Abnorm Lymph % (Manual) 0 Nucleated RBC % Not Reportable Neutrophils # (Manual) 20.0 H Lymphocytes # (Manual) 1.4 L Monocytes # (Manual) 0.9 Eosinophils # (Manual) 0.0 Basophils # (Manual) 0.2 H Differential Comment MANUAL DIFFERENTIAL Manual Slide Review Indicated WBC Morphology NORMAL APPEARANCE Platelet Estimate INCREASED (>450,000) Platelet Morphology NORMAL APPEARANCE RBC Morph Micro Appear 1+ MICROCYTOSIS Sodium 131 L Potassium 3.6 Chloride 97 L Carbon Dioxide 21 Anion Gap 13.0 BUN 9 Creatinine 0.8 Estimated GFR (MDRD) 77 L Glucose 130 H Calcium 9.1 Total Bilirubin 1.3 H AST 46 H ALT 20 Alkaline Phosphatase 76 Total Protein 8.4 H Albumin 4.9 Globulin 3.5 Albumin/Globulin Ratio 1.4 Lipase 20 L Urine Color Urine Clarity Urine pH Ur Specific [place] 1.005 Urine Protein Urine Glucose (UA) Urine Ketones Urine Occult Blood Urine Nitrite Urine Bilirubin Urine Urobilinogen Ur Leukocyte Esterase Ur Microscopic Review Urine Culture Comments Urine HCG, Qual NEGATIVE Urine Opiates Screen Ur Oxycodone Screen Urine Methadone Screen Ur Propoxyphene Screen Ur Barbiturates Screen Ur Tricyclics Screen Ur Phencyclidine Scrn Ur Amphetamine Screen U Methamphetamines Scrn U Benzodiazepines Scrn Urine Cocaine Screen U Cannabinoids Screen Ethyl Alcohol PD MEDICAL DECISION MAKING - ED course Complexity details: other (Please see separate history and physical from Dr. Angelica Cazares patient was signed out to me at shift change patient's been evaluated by the designated mental health provider patient's involuntary and is being [facility] Departure - Departure Disposition: 65 Psych Hosp/Unit DC/Xfer Clinical Impression: Psychoses Qualifiers: Psychosis type: unspecified psychosis type Qualified Code(s): F29 - Unspecified psychosis not due to a substance or known physiological condition Condition: Stable
[2019-05-25] MEDS ORDERED: LORazepam 1 MG TABLET PO STA (01:26)
== END 2019-05-25 07:30 ==
LOC: EDUNIT# → ED 07:31
DX: F29 Unspecified psychosis not due to a substance or known physiological condition (principal); F17.200 Nicotine dependence, unspecified, uncomplicated
CPT/HCPCS: 36415; 80053; 80306; 80320; 81003; 81025; 83690; 85025; 93005; 96372; 99285; A9270; J2060; J8499; 81001; 87086

== ENCOUNTER 2019-05-25 07:21 | Outpatient (CLI) | payer MEDICAID | END 2019-05-25 07:22 | LOC: EMS 07:21 | PROVIDERS: ATTEND Surgery | DX: F29 Unspecified psychosis not due to a substance or known physiological condition (principal) | CPT/HCPCS: A0425; A0428 ==

== ENCOUNTER 2019-11-15 14:49 | Outpatient (CLI) | payer MEDICAID ==
[2019-11-15] MEDS ORDERED: IOVERSOL 320 100 ML VIAL IVP ONE ×2 (15:08→17:42)
--- NOTE | 2019-11-15 16:27 | CT Report ---
PROCEDURE: ANGIO HEAD W/WO INDICATIONS: Aneurysm, headache CONTRAST: IV CONTRAST: Optiray 320 ml: 80 PO CONTRAST: *NO PO CONTRAST TECHNIQUE: Precontrast 4.5 mm thick angled axial sections acquired from the foramen magnum to the vertex. Afte r the administration of intravenous contrast, 1 mm thick sections acquired through the [place] of [place] is. Postcontrast 4.5 mm thick sections then re-acquired from the foramen magnum to the vertex. 3-di mensional nlrvxmu-qimkcwtta-guitvbvvaf (MIP) and/or volume rendering reformats were acquired of the c entral intracranial vasculature. For radiation dose reduction, the following was used: automated ex posure control, adjustment of mA and/or kV according to patient size. COMPARISON: 02/08/2017 CT angiogram of the head; 12/27/2014 CT angiogram of the head FINDINGS: Image quality: Excellent. Anterior circulation: Patent left distal internal carotid artery stent with no evidence of intrastent thrombosis. Remainder of the left internal carotid artery is unremarkable. Normal branch configurati on of the anterior and middle cerebral arteries on the left with no evidence of occlusion, narrowing, or aneurysm. The right internal carotid artery, middle cerebral artery, anterior cerebral artery are unremarkable. Anterior communicating artery is present. Posterior circulation: Visualized portions of the vertebral arteries demonstrate normal caliber, and join to form a normal appearing basilar artery. Flow within the posterior cerebral arteries is norm al and symmetric. No aneurysms are seen. CSF spaces: Ventricles are normal in size and shape. Basal cisterns are patent. No extra-axial flu id collections. Brain: No midline shift. No intracranial bleeds or masses. Allen-white matter interface appears int act. Skull and face: Calvarium and facial bones appear intact, without suspicious lesions. Sinuses: Visualized sinuses and mastoids are clear. IMPRESSION: Patent left distal internal carotid artery stent with no evidence of stent narrowing. No evidence of intracranial aneurysm. Reviewed by: Haider Rosales MD on 11/15/2019 4:25 PM PDT Approved by: Haider Rosales MD on 11/15/2019 4:25 PM PDT Station ID: [id number]
== END 2019-11-15 14:50 | disposition home or self-care (01) ==
LOC: DI 14:49
PROVIDERS: ATTEND Nurse Practitioner Family
DX: R51.9 Headache, unspecified (principal); Z86.79 Personal history of other diseases of the circulatory system; Z95.828 Presence of other vascular implants and grafts
CPT/HCPCS: 70496; Q9967

== ENCOUNTER 2020-09-11 17:09 | Outpatient (CLI) | payer MEDICAID | END 2020-09-11 17:10 | disposition critical access hospital (66) | LOC: EMS 17:09 | DX: S09.90XA Unspecified injury of head, initial encounter (principal); M25.572 Pain in left ankle and joints of left foot; X58.XXXA Exposure to other specified factors, initial encounter | CPT/HCPCS: A0425; A0427; A0999 ==

== ENCOUNTER 2020-09-11 17:29 | Emergency (ER) | payer MEDICAID ==
--- NOTE | 2020-09-11 17:37 | ED Physician Documentation ---
PD HPI LOWER EXT INJURY - Stated complaint Stated Complaint: HBD/ASSAULT - Chief complaint Chief Complaint: Trauma Ext - History obtained from History obtained from: Patient, EMS - Additional information Additional information: 45-year-old woman presents after unknown mechanism of injury while intoxicated with potential deformity of the left ankle. She has been drinking. 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, Breast implants Neuro: Other - Present Medications Home Medications: Ambulatory Orders Medication Instructions Recorded Confirmed ARIPiprazole [Aripiprazole] 20 mg PO QPM 02/09/17 04/30/19 Prazosin HCl 2 mg PO QPM PRN 02/09/17 04/30/19 Escitalopram Oxalate [Lexapro] 20 mg PO DAILY #7 tablet 11/12/17 04/30/19 Naltrexone HCl 50 mg DAILY 05/24/19 05/24/19 lamoTRIgine [LaMICtal] 100 mg PO DAILY 05/24/19 05/24/19 - Allergies Allergies/Adverse Reactions: Allergies Allergy/AdvReac Type Severity Reaction Status Date / Time No Known Drug Allergies Allergy Verified 09/11/20 17:36 - Social History Does the pt smoke?: Yes Smoking Status: Current every day smoker Does the pt drink ETOH?: Yes Does the pt have substance abuse?: No - Immunizations Immunizations are current?: Yes - POLST Patient has POLST: No POLST Status: Full Code PD ED PE NORMAL - Vitals Vital signs reviewed: Yes - General General: Other (She is clearly intoxicated) - HEENT HEENT: PERRL, EOMI - Neck Neck: No bony TTP - Cardiac Cardiac: RRR, No murmur - Respiratory Respiratory: No respiratory distress, Clear bilaterally - Abdomen Abdomen: Soft, Non tender - Back Back: No CVA TTP, No spinal TTP - Derm Derm: Normal color, Warm and dry - Extremities Extremities: Other (Holding ankle inverted, but o/w no deformity. TTP laterally) - Neuro Eye Opening: Spontaneous Motor: Obeys Commands Verbal: Confused GCS Score: 14 Results - Vitals Vitals: Vital Signs - 24 hr 09/11/20 09/11/20 09/11/20 17:31 19:44 21:27 Temperature 36.4 C L 36.3 C L 36.6 C Heart Rate 93 84 88 Respiratory 20 20 18 Rate Blood Pressure 151/118 H 157/121 H 148/131 H O2 Saturation 98 100 98 Oxygen O2 Source Room air - Labs Labs: Laboratory Tests 09/11/20 09/11/20 17:48 17:48 WBC 7.2 RBC 5.15 Hgb 13.5 Hct 40.7 MCV 79.0 L MCH 26.2 L MCHC 33.2 RDW 18.9 H Plt Count 505 H MPV 9.5 Neut # (Auto) 4.5 Lymph # (Auto) 2.2 [place] # (Auto) 0.5 Eos # (Auto) 0.0 Baso # (Auto) 0.0 Absolute Nucleated RBC 0.00 Nucleated RBC % 0.0 Sodium 141 Potassium 3.9 Chloride 105 Carbon Dioxide 22 Anion Gap 14.0 H BUN 14 Creatinine 0.5 Estimated GFR (MDRD) 132 Glucose 115 H Calcium 8.9 Total Bilirubin 0.5 AST 24 ALT 21 Alkaline Phosphatase 61 Total Protein 8.0 Albumin 4.8 Globulin 3.2 Albumin/Globulin Ratio 1.5 Ethyl Alcohol 382.1 PD MEDICAL DECISION MAKING - ED course ED course: 45-year-old woman presents by ambulance with unknown mechanism ankle injury. She is quite intoxicated. She required some IV Haldol for anxiolysis, this was not for sedation or restraint. Records reviewed, frequently has a positive blood alcohol level, sometimes up into the 400s. CT of the head and neck were negative for acute trauma. X-ray of the right tib- fib and ankle were negative for fracture. Blood alcohol was 382. Rest of her labs were relatively unremarkable. She was allowed to sober up for several hours, and by the time of discharge was clinically sober. Imaging showed no acute trauma. She was able to walk and bear weight here. Departure - Departure Disposition: 01 Home, Self Care Clinical Impression: Alcoholism /alcohol abuse Head contusion Qualifiers: Encounter type: initial encounter Contusion of head detail: unspecified part of head Qualified Code(s): S00.93XA - Contusion of unspecified part of head, initial encounter Alcohol intoxication Qualifiers: Complication of substance-induced condition: with delirium Qualified Code(s): F10.921 - Alcohol use, unspecified with intoxication delirium Ankle injury Qualifiers: Encounter type: initial encounter Laterality: left Qualified Code(s): S99.912A - Unspecified injury of left ankle, initial encounter Condition: Good Record reviewed to determine appropriate education?: Yes Instructions: ED Sprain Ankle W X Ray, ED Alcohol Intoxication Comments: Call your doctor to arrange a follow-up appointment, make the next available appointment. In the interim, return anytime if worse or if new symptoms develop. Discharge Date/Time: 09/11/20 22:19
[2020-09-11] MEDS ORDERED: HALOPERIDOL 5 MG/ML VIAL IVP ONE (17:45)
[2020-09-11] MEDS ORDERED: FOLIC ACID INJ 1 MG, THIAMINE INJ 100 MG, MAGNESIUM SULFATE 2 GM, MULTIVITAMIN 10 ML in... IV STA ×5 (17:47)
[2020-09-11 17:51] LABS: BASOPHILS % (AUTO) 0.4 %; EOSINOPHILS % (AUTO) 0.4 %; HCT - HEMATOCRIT 40.7 % (37.0-47.0); HGB - HEMOGLOBIN 13.5 g/dL (12.0-16.0); LYMPHOCYTES # (AUTO) 2.2 10^3/uL (1.5-3.5); LYMPHOCYTES % (AUTO) 30.5 %; MEAN CORPUSCULAR HEMOGLOBIN 26.2 pg (27.0-31.0); MEAN CORPUSCULAR HGB CONC 33.2 g/dL (32.0-36.0); MEAN PLATELET VOLUME 9.5 fL (7.9-10.8); MONOCYTES # (AUTO) 0.5 10^3/uL (0.0-1.0); MONOCYTES % (AUTO) 6.3 %; NEUTROPHILS # (AUTO) 4.5 10^3/uL (1.5-6.6); PLT - PLATELET COUNT 505 10^3/uL (130-450); RED BLOOD COUNT 5.15 10^6/uL (4.20-5.40); RED CELL DISTRIBUTION WIDTH 18.9 % (12.0-15.0); WHITE BLOOD COUNT 7.2 x10^3/uL (4.8-10.8)
[2020-09-11 18:03] LABS: ALBUMIN 4.8 g/dL (3.2-5.5); ALBUMIN/GLOBULIN RATIO 1.5 (1.0-2.2); BILIRUBIN,TOTAL 0.5 mg/dL (0.2-1.0); CALCIUM 8.9 mg/dL (8.5-10.3); CREATININE 0.5 mg/dL (0.4-1.0); ETOH - ETHANOL 382.1 mg/dL; POTASSIUM 3.9 mmol/L (3.5-5.0)
--- NOTE | 2020-09-11 18:52 | XRAY Report ---
PROCEDURE: Ankle 3 View LT INDICATIONS: ankle inj TECHNIQUE: 3 views of the ankle were acquired. COMPARISON: None FINDINGS: Bones: No fractures or dislocations. Ankle mortise is normally aligned. No suspicious bony lesions . Soft tissues: Lateral periarticular soft tissue swelling. No tibiotalar joint effusion. Achilles te ndon appears normal. IMPRESSION: 1. Lateral periarticular soft tissue swelling without evidence of fracture. Reviewed by: Sarika Stovall MD on 09/11/2020 6:50 PM PDT Approved by: Sarika Stovall MD on 09/11/2020 6:50 PM PDT Station ID: [id number]
--- NOTE | 2020-09-11 18:53 | XRAY Report ---
PROCEDURE: Tib/Fib LT INDICATIONS: ankle inj TECHNIQUE: 2 views of the tibia and fibula were acquired. COMPARISON: None FINDINGS: Bones: No fractures or dislocations. No suspicious bony lesions. Soft tissues: No suspicious soft tissue calcifications or masses. IMPRESSION: No fractures. Reviewed by: Sarika Stovall MD on 09/11/2020 6:51 PM PDT Approved by: Sarika Stovall MD on 09/11/2020 6:51 PM PDT Station ID: [id number]
--- NOTE | 2020-09-11 18:58 | CT Report ---
PROCEDURE: HEAD WO INDICATIONS: poss head inj, etoh TECHNIQUE: Noncontrast 4.5 mm thick angled axial sections acquired from the foramen magnum to the vertex. For r adiation dose reduction, the following was used: automated exposure control, adjustment of mA and/or kV according to patient size. The patient was scanned twice due to considerable patient motion the f irst time. COMPARISON: 11/15/2019 FINDINGS: Image quality: Excellent. CSF spaces: Basal cisterns are patent. No extra-axial fluid collections. Ventricles are normal in size and shape. Brain: No midline shift. No intracranial masses or hemorrhage. Allen-white matter interface is norm al. Incidental note made of left distal ICA stent. Skull and face: Calvarium and visualized facial bones are intact, without suspicious lesions. Sinuses: Visualized sinuses and mastoids are clear. IMPRESSION: No CT evidence of acute intracranial process. Reviewed by: Sarika Stovall MD on 09/11/2020 6:56 PM PDT Approved by: Sarika Stovall MD on 09/11/2020 6:56 PM PDT Station ID: [id number]
--- NOTE | 2020-09-11 19:04 | CT Report ---
PROCEDURE: CERVICAL SPINE WO INDICATIONS: poss head inj, etoh TECHNIQUE: Noncontrast 3 mm thick sections acquired from the skull base to the T4 level. Sagittal and coronal r eformats were then constructed. For radiation dose reduction, the following was used: automated exp osure control, adjustment of mA and/or kV according to patient size. COMPARISON: 09/23/2014 FINDINGS: Image quality: Excellent. Bones: No fractures or dislocations. No pathologic subluxation. There is straightening of the elizabeth l cervical lordosis. Mild degenerative facet arthropathy and uncovertebral joint hypertrophy is seen at C5-6 causing mild bilateral foraminal narrowing. Visualized superior ribs are intact. Soft tissues: Prevertebral soft tissues are normal in thickness. No paravertebral hematomas. No ap ical pneumothoraces. IMPRESSION: 1. No CT evidence of acute cervical spine trauma. 2. Slight progression of mild degenerative endplate and facet joint changes at C5-6. 3. Chronic straightening of the normal cervical lordosis may be due to posture or muscle spasm. Reviewed by: Sarika Stovall MD on 09/11/2020 7:03 PM PDT Approved by: Sarika Stovall MD on 09/11/2020 7:03 PM PDT Station ID: [id number]
[2020-09-11 21:28] VITALS: BP 148/131
== END 2020-09-11 22:19 | disposition home or self-care (01) ==
LOC: EDUNIT# → EDBD → ED 17:29
DX: S99.912A Unspecified injury of left ankle, initial encounter (principal); S00.93XA Contusion of unspecified part of head, initial encounter; X58.XXXA Exposure to other specified factors, initial encounter; F10.129 Alcohol abuse with intoxication, unspecified; F17.200 Nicotine dependence, unspecified, uncomplicated
CPT/HCPCS: 36415; 70450; 72125; 73590; 73610; 80053; 80320; 85025; 96365; 96366; 96375; 99284; 99285; J3411

== ENCOUNTER 2020-12-21 22:29 | Emergency (ER) | payer MEDICAID ==
[2020-12-21 22:36] VITALS: BP 130/80
== END 2020-12-21 22:57 | disposition left against medical advice (07) ==
LOC: ED 22:29
DX: Z53.21 Procedure and treatment not carried out due to patient leaving prior to being seen by health care provider (principal)

== ENCOUNTER 2021-03-18 18:44 | Emergency (ER) | payer MEDICAID ==
[2021-03-18 19:01] VITALS: BP 155/99
[2021-03-18 19:25] LABS: MUDS CUTOFF CONCENTRATIONS CUTOFF CONC BELOW:
[2021-03-18 19:26] LABS: BASOPHILS # (AUTO) 0.1 10^3/uL (0.0-0.1); BASOPHILS % (AUTO) 0.5 %; EOSINOPHILS # (AUTO) 0.2 10^3/uL (0.0-0.7); EOSINOPHILS % (AUTO) 1.8 %; HCT - HEMATOCRIT 40.6 % (37.0-47.0); LYMPHOCYTES # (AUTO) 2.1 10^3/uL (1.5-3.5); LYMPHOCYTES % (AUTO) 22.2 %; MEAN CORPUSCULAR VOLUME 81.2 fL (81.0-99.0); MONOCYTES % (AUTO) 10.4 %; NEUTROPHILS # (AUTO) 6.2 10^3/uL (1.5-6.6); NEUTROPHILS % (AUTO) 64.9 %; PLT - PLATELET COUNT 444 10^3/uL (130-450); RED CELL DISTRIBUTION WIDTH 19.3 % (12.0-15.0); WHITE BLOOD COUNT 9.6 x10^3/uL (4.8-10.8)
[2021-03-18 19:32] LABS: BILIRUBIN,URINE NEGATIVE (NEGATIVE); GLUCOSE, URINE (UA) NEGATIVE (NEGATIVE); KETONES,URINE (UA) NEGATIVE (NEGATIVE); LEUKOCYTE ESTERASE, URINE NEGATIVE (NEGATIVE); NITRITE,URINE NEGATIVE (NEGATIVE); OCCULT BLOOD,URINE NEGATIVE (NEGATIVE); PROTEIN,URINE NEGATIVE (NEGATIVE); UROBILINOGEN,URINE 0.2 (NORMAL) E.U./dL (NORMAL)
[2021-03-18 19:34] LABS: CLARITY,URINE SL. CLOUDY (CLEAR); HCG UR QUAL NEGATIVE
[2021-03-18 19:45] LABS: COCAINE SCREEN URINE NEGATIVE (NEGATIVE); METHAMPHETAMINES SCREEN, URINE NEGATIVE (NEGATIVE); THC CANNABINOID SCREEN, URINE POSITIVE (NEGATIVE)
[2021-03-18 19:46] LABS: AMPHETAMINE SCREEN,URINE NEGATIVE (NEGATIVE); BARBITURATE SCREEN,UR NEGATIVE (NEGATIVE); BENZODIAZEPINES SCREEN, URINE NEGATIVE (NEGATIVE); METHADONE SCREEN, URINE NEGATIVE (NEGATIVE); OPIATE SCREEN, URINE NEGATIVE (NEGATIVE); OXYCODONE SCREEN, URINE NEGATIVE (NEGATIVE); PROPOXYPHENE SCREEN, URINE NEGATIVE (NEGATIVE); TRICYCLIC ANTIDEPRESSANT,URINE NEGATIVE (NEGATIVE)
[2021-03-18 19:47] LABS: AMORPHOUS SEDIMENT,UR Rare /LPF; BACTERIA,URINE Rare /HPF (None Seen); RBC,URINE None Seen /HPF (0-5); SQUAMOUS EPITHELIAL CELL,UR RARE Squamous (<= Few); WBC,URINE 0-3 /HPF (0-5)
[2021-03-18 19:48] LABS: ACETAMINOPHEN < 10 ug/mL (10-30); ALBUMIN/GLOBULIN RATIO 1.3 (1.0-2.2); ALKALINE PHOSPHATASE 63 IU/L (42-121); ALT ALANINE AMINOTRANSFERASE 27 IU/L (10-60); AST ASPARTATE AMINOTRANSFERASE 26 IU/L (10-42); BILIRUBIN,TOTAL 0.5 mg/dL (0.2-1.0); BUN - BLOOD UREA NITROGEN 14 mg/dL (6-20); CALCIUM 9.3 mg/dL (8.5-10.3); CARBON DIOXIDE - CO2 28 mmol/L (21-32); CHLORIDE 104 mmol/L (101-111); CREATININE 0.8 mg/dL (0.4-1.0); ETOH - ETHANOL < 5.0 mg/dL; GFR - MDRD 77 (>89); GLUCOSE 90 mg/dL (70-100); LIPASE 27 U/L (22-51); POTASSIUM 3.1 mmol/L (3.5-5.0); SALICYLATE < 6.0 mg/dL; SODIUM 142 mmol/L (135-145); TOTAL PROTEIN 7.1 g/dL (6.7-8.2)
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
[2021-03-18 20:26] LABS: B. PARAPERTUSSIS- RESP PCR PAN NOT DETECTED; B. PERTUSSIS- RESP PCR PANEL NOT DETECTED; C. PNEUMONIAE- RESP PCR PANEL NOT DETECTED; CORONAVIRUS 229E-RESP PCR NOT DETECTED; CORONAVIRUS HKU1-RESP PCR NOT DETECTED; CORONAVIRUS NL63-RESP PCR NOT DETECTED; CORONAVIRUS OC43-RESP PCR NOT DETECTED; HUMAN METAPNEUMOVIRUS NOT DETECTED; INFLUENZA A- RESP PCR PANEL NOT DETECTED; INFLUENZA B - RESP PCR PANEL NOT DETECTED; M. PNEUMONIAE- RESP PCR PANEL NOT DETECTED; PARAINFLUENZA VIRUS 1 NOT DETECTED; PARAINFLUENZA VIRUS 2 NOT DETECTED; PARAINFLUENZA VIRUS 3 NOT DETECTED; PARAINFLUENZA VIRUS 4 NOT DETECTED; RHINOVIRUS/ENTEROVIRUS NOT DETECTED; RSV- RESP PCR PANEL NOT DETECTED; SARS-CoV-2 -RESP PCR PANEL NOT DETECTED
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
[2021-03-18] MEDS ORDERED: busPIRone 5 MG TABLET PO STA (20:57)
== END 2021-03-18 21:15 | disposition home or self-care (01) ==
LOC: ED 18:44
DX: F31.9 Bipolar disorder, unspecified (principal); Z63.0 Problems in relationship with spouse or partner; F43.0 Acute stress reaction; F17.200 Nicotine dependence, unspecified, uncomplicated; Z20.822 Contact with and (suspected) exposure to COVID-19
CPT/HCPCS: 0202U; 36415; 80053; 80306; 80307; 80320; 80329; 81001; 81025; 83690; 84443; 85025; 99283; A9270; G0425; Q3014; 81003; 87086

== ENCOUNTER 2021-03-19 03:56 | Emergency (ER) | payer MEDICAID ==
[2021-03-19 04:05] VITALS: BP 157/96
--- NOTE | 2021-03-19 04:17 | ED Physician Documentation ---
PD HPI MHE - Stated complaint Stated Complaint: ANXIETY - Chief complaint Chief Complaint: MHE - Additional information Additional information: Pt 46 yo F presenting With anxiety and disorganized behavior. Accompanied by remedios who reports that she has become increasingly paranoid, responding to internal stimuli and auditory hallucinations. She reports smoking marijuana, but denies any other substance abuse. He denies auditory or visual hallucinations. Does report severe anxiety. Denies suicidal or homicidal ideation Review of Systems Unable to obtain: Other (Psychiatric disturbance) PD PAST MEDICAL HISTORY - Past Medical History Cardiovascular: None Respiratory: None Neuro: None Endocrine/Autoimmune: None GI: None CONSTRUCTION HELPER: None : None HEENT: None Psych: Depression, Post traumatic stress disorder Musculoskeletal: None Derm: None - Past Surgical History Past Surgical History: No /CONSTRUCTION HELPER: section, Breast implants Neuro: Other - Present Medications Home Medications: Ambulatory Orders Medication Instructions Recorded Confirmed ARIPiprazole [Aripiprazole] 20 mg PO QPM 02/09/17 04/30/19 Prazosin HCl 2 mg PO QPM PRN 02/09/17 04/30/19 Escitalopram Oxalate [Lexapro] 20 mg PO DAILY #7 tablet 11/12/17 04/30/19 Naltrexone HCl 50 mg DAILY 05/24/19 05/24/19 lamoTRIgine [LaMICtal] 100 mg PO DAILY 05/24/19 05/24/19 busPIRone [Buspar] 5 mg PO TID PRN #15 tablet 03/18/21 - Allergies Allergies/Adverse Reactions: Allergies Allergy/AdvReac Type Severity Reaction Status Date / Time No Known Drug Allergies Allergy Verified 03/19/21 04:06 - Social History Does the pt smoke?: Yes Smoking Status: Current every day smoker Does the pt drink ETOH?: Yes Does the pt have substance abuse?: No - Immunizations Immunizations are current?: Yes - POLST Patient has POLST: No POLST Status: Full Code PD ED PE NORMAL - Vitals Vital signs reviewed: Yes - General General: Alert and oriented X 3 - HEENT HEENT: Atraumatic - Neck Neck: Supple, no meningeal sign - Cardiac Cardiac: RRR, No murmur - Respiratory Respiratory: No respiratory distress - Abdomen Abdomen: Normal bowel sounds - Female Female : Deferred - Rectal Rectal: Deferred - Back Back: No CVA TTP - Derm Derm: Normal color - Extremities Extremities: No deformity - Neuro Neuro: Alert and oriented X 3, commercial decorator 2-12 intact, No motor deficit PD ED PE EXPANDED - Psych Psych: Anxious, Pressured speech, Flight of ideas Results - Vitals Vitals: Vital Signs - 24 hr 03/19/21 03:58 Temperature 36.4 C L Heart Rate 100 Respiratory 18 Rate Blood Pressure 157/96 H O2 Saturation 98 Oxygen O2 Source Room air - EKG (time done) 0434 Rate: Rate (enter#) (82) Rhythm: NSR [place]: Normal Intervals: Normal MO QRS: Normal Ischemia: Normal ST segments Computer interpretation: Agree with computer - Labs Labs: Laboratory Tests 03/19/21 03/19/21 03/19/21 05:00 05:00 05:00 WBC 9.5 RBC 4.98 Hgb 12.8 Hct 40.4 MCV 81.1 MCH 25.7 L MCHC 31.7 L RDW 19.0 H Plt Count 417 MPV 10.0 Neut # (Auto) 6.4 Lymph # (Auto) 1.8 [place] # (Auto) 1.0 Eos # (Auto) 0.2 Baso # (Auto) 0.1 Absolute Nucleated RBC 0.00 Nucleated RBC % 0.0 PT 11.5 INR 1.0 Total Creatine Kinase 223 Troponin I High Sens Urine HCG, Qual Salicylates < 6.0 Urine Opiates Screen Ur Oxycodone Screen Urine Methadone Screen Ur Propoxyphene Screen Acetaminophen < 10 L Ur Barbiturates Screen Ur Tricyclics Screen Ur Phencyclidine Scrn Ur Amphetamine Screen U Methamphetamines Scrn U Benzodiazepines Scrn Urine Cocaine Screen U Cannabinoids Screen Ethyl Alcohol < 5.0 03/19/21 03/19/21 05:00 05:34 WBC RBC Hgb Hct MCV MCH MCHC RDW Plt Count MPV Neut # (Auto) Lymph # (Auto) [place] # (Auto) Eos # (Auto) Baso # (Auto) Absolute Nucleated RBC Nucleated RBC % PT INR Total Creatine Kinase Troponin I High Sens 10.2 Urine HCG, Qual NEGATIVE Salicylates Urine Opiates Screen NEGATIVE Ur Oxycodone Screen POSITIVE H Urine Methadone Screen NEGATIVE Ur Propoxyphene Screen NEGATIVE Acetaminophen Ur Barbiturates Screen NEGATIVE Ur Tricyclics Screen NEGATIVE Ur Phencyclidine Scrn NEGATIVE Ur Amphetamine Screen NEGATIVE U Methamphetamines Scrn NEGATIVE U Benzodiazepines Scrn NEGATIVE Urine Cocaine Screen NEGATIVE U Cannabinoids Screen POSITIVE H Ethyl Alcohol PD MEDICAL DECISION MAKING - ED course Complexity details: reviewed results, re-evaluated patient ED course: Patient is a 46-year-old female presenting to the emergency department with anxiety and report of bizarre behavior. Seen at this facility yesterday afternoon/evening. At that time evaluated by telepsych. Discharged on buspirone 5 mg 3 times daily for anxiety with plan for follow-up on an outpatient basis. Returns this morning at approximately 0400 hrs. accompanied by remedios who reports patient has become increasingly erratic, and appears to be responding to auditory hallucinations at home. Patient provided bizarre nonsensical responses to triage nurse. During my evaluation patient was only minimally communicative, did not appear frankly psychotic however did have some pressured speech, flight of ideas, and when asked whether or not she would be willing to stay in the emergency department to discuss her situation with social work she responded emphatically "yes please yes please". She denied auditory or visual hallucinations or suicidal and homicidal ideation. Did report that she "smoked some weed". EKG as outlined above negative for indications of cardiac ischemia or dysrhythmia. Labs obtained within normal limits are nonactionable. Tox screen positive for oxycodone and cannabinoid metabolites. Negative for other drugs or alcohol. Patient was given 5 mg buspirone in the emergency department for calming. Will be signing out to the oncoming physician pending social work evaluation. Please see their documentation for further detail. Departure - Departure Clinical Impression: Anxiety
[2021-03-19 05:10] LABS: BASOPHILS # (AUTO) 0.1 10^3/uL (0.0-0.1); BASOPHILS % (AUTO) 0.5 %; EOSINOPHILS # (AUTO) 0.2 10^3/uL (0.0-0.7); EOSINOPHILS % (AUTO) 1.9 %; HCT - HEMATOCRIT 40.4 % (37.0-47.0); HGB - HEMOGLOBIN 12.8 g/dL (12.0-16.0); LYMPHOCYTES # (AUTO) 1.8 10^3/uL (1.5-3.5); LYMPHOCYTES % (AUTO) 19.5 %; MEAN CORPUSCULAR HEMOGLOBIN 25.7 pg (27.0-31.0); MEAN CORPUSCULAR HGB CONC 31.7 g/dL (32.0-36.0); MEAN CORPUSCULAR VOLUME 81.1 fL (81.0-99.0); NEUTROPHILS # (AUTO) 6.4 10^3/uL (1.5-6.6); NEUTROPHILS % (AUTO) 67.9 %; PLT - PLATELET COUNT 417 10^3/uL (130-450); RED BLOOD COUNT 4.98 10^6/uL (4.20-5.40); WHITE BLOOD COUNT 9.5 x10^3/uL (4.8-10.8)
[2021-03-19 05:21] LABS: ACETAMINOPHEN < 10 ug/mL (10-30); CK- CREATINE KINASE 223 IU/L (22-269); ETOH - ETHANOL < 5.0 mg/dL; PT - PROTHROMBIN TIME 11.5 secs (9.9-12.6); SALICYLATE < 6.0 mg/dL
[2021-03-19 05:43] LABS: HCG UR QUAL NEGATIVE; MUDS CUTOFF CONCENTRATIONS CUTOFF CONC BELOW:
[2021-03-19 05:51] LABS: AMPHETAMINE SCREEN,URINE NEGATIVE (NEGATIVE); BARBITURATE SCREEN,UR NEGATIVE (NEGATIVE); BENZODIAZEPINES SCREEN, URINE NEGATIVE (NEGATIVE); COCAINE SCREEN URINE NEGATIVE (NEGATIVE); METHADONE SCREEN, URINE NEGATIVE (NEGATIVE); METHAMPHETAMINES SCREEN, URINE NEGATIVE (NEGATIVE); OPIATE SCREEN, URINE NEGATIVE (NEGATIVE); OXYCODONE SCREEN, URINE POSITIVE (NEGATIVE); PROPOXYPHENE SCREEN, URINE NEGATIVE (NEGATIVE); THC CANNABINOID SCREEN, URINE POSITIVE (NEGATIVE); TRICYCLIC ANTIDEPRESSANT,URINE NEGATIVE (NEGATIVE)
[2021-03-19] MEDS ORDERED: busPIRone 5 MG TABLET PO SCH (09:00)
== END 2021-03-19 06:37 | disposition left against medical advice (07) ==
LOC: ED 03:56
DX: F41.9 Anxiety disorder, unspecified (principal); F17.200 Nicotine dependence, unspecified, uncomplicated
CPT/HCPCS: 36415; 80306; 80307; 80320; 80329; 81025; 82550; 84484; 85025; 85610; 93005; 99281; 99284

== ENCOUNTER 2021-03-19 12:58 | Emergency (ER) | payer MEDICAID ==
[2021-03-19 13:17] VITALS: BP 151/107
== END 2021-03-19 13:44 | disposition left against medical advice (07) ==
LOC: ED 12:58
DX: Z53.21 Procedure and treatment not carried out due to patient leaving prior to being seen by health care provider (principal)

== ENCOUNTER 2021-08-05 18:48 | Emergency (ER) | payer MEDICAID ==
[2021-08-05 19:18] VITALS: BP 160/100
== END 2021-08-05 20:29 | disposition left against medical advice (07) ==
LOC: ED 18:48
DX: Z53.21 Procedure and treatment not carried out due to patient leaving prior to being seen by health care provider (principal)

== ENCOUNTER 2021-11-17 20:34 | Emergency (ER) | payer OTHER, MEDICAID ==
[2021-11-17 21:04] LABS: MUDS CUTOFF CONCENTRATIONS CUTOFF CONC BELOW:
[2021-11-17 21:07] LABS: BILIRUBIN,URINE NEGATIVE (NEGATIVE); CLARITY,URINE CLEAR (CLEAR); GLUCOSE, URINE (UA) NEGATIVE (NEGATIVE); KETONES,URINE (UA) NEGATIVE (NEGATIVE); LEUKOCYTE ESTERASE, URINE NEGATIVE (NEGATIVE); NITRITE,URINE NEGATIVE (NEGATIVE); OCCULT BLOOD,URINE MODERATE (NEGATIVE); PROTEIN,URINE NEGATIVE (NEGATIVE); UROBILINOGEN,URINE 0.2 (NORMAL) E.U./dL (NORMAL)
[2021-11-17 21:15] LABS: BASOPHILS # (AUTO) 0.1 10^3/uL (0.0-0.1); BASOPHILS % (AUTO) 0.6 %; EOSINOPHILS # (AUTO) 0.3 10^3/uL (0.0-0.7); EOSINOPHILS % (AUTO) 3.9 %; HCT - HEMATOCRIT 40.9 % (37.0-47.0); HGB - HEMOGLOBIN 13.3 g/dL (12.0-16.0); LYMPHOCYTES # (AUTO) 2.8 10^3/uL (1.5-3.5); LYMPHOCYTES % (AUTO) 31.8 %; MEAN CORPUSCULAR HEMOGLOBIN 27.3 pg (27.0-31.0); MEAN CORPUSCULAR HGB CONC 32.5 g/dL (32.0-36.0); MEAN CORPUSCULAR VOLUME 83.8 fL (81.0-99.0); MEAN PLATELET VOLUME 9.6 fL (7.9-10.8); MONOCYTES # (AUTO) 0.4 10^3/uL (0.0-1.0); MONOCYTES % (AUTO) 4.7 %; NEUTROPHILS # (AUTO) 5.2 10^3/uL (1.5-6.6); NEUTROPHILS % (AUTO) 58.7 %; PLT - PLATELET COUNT 449 10^3/uL (130-450); RED BLOOD COUNT 4.88 10^6/uL (4.20-5.40); RED CELL DISTRIBUTION WIDTH 19.8 % (12.0-15.0); WHITE BLOOD COUNT 8.8 x10^3/uL (4.8-10.8)
[2021-11-17 21:17] LABS: BACTERIA,URINE Rare /HPF (None Seen); RBC,URINE 0-5 /HPF (0-5); SQUAMOUS EPITHELIAL CELL,UR FEW Squamous (<= Few); WBC,URINE 0-3 /HPF (0-5)
[2021-11-17 21:18] LABS: AMPHETAMINE SCREEN,URINE NEGATIVE (NEGATIVE); BARBITURATE SCREEN,UR NEGATIVE (NEGATIVE); BENZODIAZEPINES SCREEN, URINE NEGATIVE (NEGATIVE); COCAINE SCREEN URINE NEGATIVE (NEGATIVE); METHADONE SCREEN, URINE NEGATIVE (NEGATIVE); METHAMPHETAMINES SCREEN, URINE NEGATIVE (NEGATIVE); OPIATE SCREEN, URINE NEGATIVE (NEGATIVE); OXYCODONE SCREEN, URINE NEGATIVE (NEGATIVE); PROPOXYPHENE SCREEN, URINE NEGATIVE (NEGATIVE); THC CANNABINOID SCREEN, URINE NEGATIVE (NEGATIVE); TRICYCLIC ANTIDEPRESSANT,URINE NEGATIVE (NEGATIVE)
[2021-11-17 21:31] LABS: ACETAMINOPHEN < 10 ug/mL (10-30); ALBUMIN 4.6 g/dL (3.2-5.5); ALBUMIN/GLOBULIN RATIO 1.7 (1.0-2.2); ALKALINE PHOSPHATASE 66 IU/L (42-121); ALT ALANINE AMINOTRANSFERASE 22 IU/L (10-60); AST ASPARTATE AMINOTRANSFERASE 25 IU/L (10-42); BILIRUBIN,TOTAL < 0.2 mg/dL (0.2-1.0); BUN - BLOOD UREA NITROGEN 15 mg/dL (6-20); CALCIUM 8.9 mg/dL (8.5-10.3); CARBON DIOXIDE - CO2 23 mmol/L (21-32); CHLORIDE 109 mmol/L (101-111); CREATININE 0.7 mg/dL (0.4-1.0); ETOH - ETHANOL 237.6 mg/dL; GFR - MDRD 89 (>89); GLUCOSE 126 mg/dL (70-100); LIPASE 41 U/L (22-51); POTASSIUM 3.4 mmol/L (3.5-5.0); SALICYLATE < 6.0 mg/dL; SODIUM 142 mmol/L (135-145); TOTAL PROTEIN 7.3 g/dL (6.7-8.2)
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
--- NOTE | 2021-11-18 13:33 | ED Physician Documentation ---
ED Addendum - Addendum Addendum: 11/18/21 13:31 Patient received as signout from outgoing physician, please see their d ocumentation for further detail. Evaluated independently at bedside. Now clinically sober, denies suicidal or homicidal ideation. Reports has a counselor with whom she follows and is attempting to resume going to alcoholics anonymous. Evaluated by social work and at this time does not meet criterion for hospitalization. Encouraged careful follow-up with primary care and/or return to the emergency department as needed.
[2021-11-18 13:57] VITALS: BP 125/75
== END 2021-11-18 13:57 | disposition home or self-care (01) ==
LOC: ED 20:34
DX: F10.10 Alcohol abuse, uncomplicated (principal); F20.9 Schizophrenia, unspecified; F31.9 Bipolar disorder, unspecified
CPT/HCPCS: 36415; 80053; 80306; 80307; 80320; 80329; 81001; 81003; 83690; 84443; 85025; 87086; 99281; 99283

== ENCOUNTER 2021-12-27 19:36 | Emergency (ER) | payer OTHER, MEDICAID ==
[2021-12-27 19:43] VITALS: BP 124/81
--- NOTE | 2021-12-27 20:06 | ED Physician Documentation ---
History of Present Illness - Stated complaint Stated Complaint: FFD - Chief complaint Chief Complaint: General - History obtained from History obtained from: Patient - Additonal information Additional information: 46yF presents bib police under arrest. patient reports drinking alcohol this evening, no other complaints. 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: section, Breast implants Neuro: Other - Present Medications Home Medications: Ambulatory Orders Medication Instructions Recorded Confirmed ARIPiprazole [Aripiprazole] 20 mg PO QPM 02/09/17 12/27/21 Prazosin HCl 2 mg PO QPM PRN 02/09/17 12/27/21 Escitalopram Oxalate [Lexapro] 20 mg PO DAILY #7 tablet 11/12/17 12/27/21 Naltrexone HCl 50 mg DAILY 05/24/19 12/27/21 lamoTRIgine [LaMICtal] 100 mg PO DAILY 05/24/19 12/27/21 busPIRone [Buspar] 5 mg PO TID PRN #15 tablet 03/18/21 12/27/21 - Allergies Allergies/Adverse Reactions: Allergies Allergy/AdvReac Type Severity Reaction Status Date / Time No Known Drug Allergies Allergy Verified 12/27/21 19:43 - Social History Does the pt smoke?: Yes Smoking Status: Current every day smoker Does the pt drink ETOH?: Yes Does the pt have substance abuse?: No - Immunizations Immunizations are current?: Yes - POLST Patient has POLST: No POLST Status: Full Code PD ED PE NORMAL - Vitals Vital signs reviewed: Yes - General General: Alert and oriented X 3, No acute distress, Well developed/nourished - HEENT HEENT: Atraumatic, PERRL, EOMI - Neck Neck: Supple, no meningeal sign - Cardiac Cardiac: RRR - Respiratory Respiratory: No respiratory distress, Clear bilaterally - Abdomen Abdomen: Non tender, Non distended - Derm Derm: Normal color, Warm and dry - Extremities Extremities: No deformity - Neuro Neuro: Alert and oriented X 3, No motor deficit, No sensory deficit - Psych Psych: Normal mood, Normal affect, Other (clinically intoxicated. ambulatory with steady gait) Results - Vitals Vitals: Oxygen O2 Source Room air PD MEDICAL DECISION MAKING - ED course ED course: 46yF presents bib police under arrest. patient reports drinking alcohol this evening, no other complaints. AOX4. ambulatory with steady gait. benign exam. okay to dc to [facility]. return precautions given. Call placed to [facility] emergency medical service manager, no response. Departure - Departure Disposition: 01 Home, Self Care Clinical Impression: Alcohol abuse Condition: Good Instructions: ED Alcohol Abuse Comments: You were seen for alcohol abuse. Please follow up with Pric[facility] Guevara [facility] emergency medical service manager as needed. Return to the ED for other concerns. Discharge Date/Time: 12/27/21 20:08
== END 2021-12-27 20:08 | disposition home or self-care (01) ==
LOC: EDBD → ED 19:36
DX: Z02.89 Encounter for other administrative examinations (principal); F10.10 Alcohol abuse, uncomplicated; F17.200 Nicotine dependence, unspecified, uncomplicated
CPT/HCPCS: 99281; 99282

== ENCOUNTER 2022-03-08 08:29 | Emergency (ER) | payer MEDICAID ==
--- NOTE | 2022-03-08 09:00 | ED Physician Documentation ---
PD HPI MHE - Stated complaint Stated Complaint: MHE - Chief complaint Chief Complaint: MHE - History obtained from History obtained from: Patient - Additional information Additional information: Patient is a 46-year-old with a history of bipolar and anxiety presenting for evaluation of feeling anxious for the past 3 days. Patient states that she has been having racing thoughts, hearing voices and feeling overall very anxious. She states that the voices tell her negative things. She was previously on naltrexone and Xanax. She has not been on Xanax for over a year. She states that in the past Xanax would help her with the symptoms. She does not currently have a psychiatrist. She denies having SI or HI. She denies recent alcohol use and states that the last time she drank was 2 months ago. She denies drug abuse. She states recent stressors with trying to get her ID and some money from her fianc's house but there are some complications with a no contact order. 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, Breast implants Neuro: Other - Present Medications Home Medications: Ambulatory Orders Medication Instructions Recorded Confirmed Naltrexone HCl 50 mg ORAL DAILY 05/24/19 03/08/22 lamoTRIgine [LaMICtal] 100 mg PO DAILY 05/24/19 03/08/22 buPROPion HCL [Bupropion HCl Sr] 200 mg PO DAILY 03/08/22 03/08/22 - Allergies Allergies/Adverse Reactions: Allergies Allergy/AdvReac Type Severity Reaction Status Date / Time No Known Drug Allergies Allergy Verified 03/08/22 08:32 - Social History Does the pt smoke?: Yes Smoking Status: Current every day smoker Does the pt drink ETOH?: Yes Does the pt have substance abuse?: No - Immunizations Immunizations are current?: Yes - POLST Patient has POLST: No POLST Status: Full Code PD ED PE NORMAL - General General: Alert and oriented X 3, No acute distress, Well developed/nourished - HEENT HEENT: Atraumatic - Neck Neck: Supple, no meningeal sign - Cardiac Cardiac: RRR - Respiratory Respiratory: No respiratory distress, Clear bilaterally - Abdomen Abdomen: Soft, Non tender - Derm Derm: Warm and dry - Neuro Neuro: Alert and oriented X 3, No motor deficit - Psych Psych: Other (Pressured somewhat rapid speech) Results - Vitals Vitals: Vital Signs - 24 hr 03/08/22 03/08/22 03/08/22 08:41 13:09 16:00 Temperature 37 C 36.7 C Heart Rate 118 H 93 97 Respiratory 24 20 18 Rate Blood Pressure 165/121 H 156/100 H 126/103 H O2 Saturation 98 97 99 Oxygen O2 Source Room air - EKG (time done) 0923 Rate: Rate (enter#) (48) Rhythm: Sinus tachycardia Ischemia: No: ST elevation c/w ischemia Compare to prior EKG: Unchanged from prior EKG (Compared to 03/19/21) - Labs Labs: Laboratory Tests 03/08/22 03/08/22 03/08/22 08:58 08:58 08:58 WBC 8.5 RBC 4.89 Hgb 13.8 Hct 42.6 MCV 87.1 MCH 28.2 MCHC 32.4 RDW 15.1 H Plt Count 438 MPV 9.6 Neut # (Auto) 5.8 Lymph # (Auto) 1.7 [place] # (Auto) 0.8 Eos # (Auto) 0.1 Baso # (Auto) 0.0 Absolute Nucleated RBC 0.00 Nucleated RBC % 0.0 Sodium 137 Potassium 3.6 Chloride 104 Carbon Dioxide 19 L Anion Gap 14.0 H BUN 19 Creatinine 0.7 Estimated GFR (MDRD) 89 Glucose 110 H Calcium 9.3 Total Bilirubin 1.0 AST 37 ALT 22 Alkaline Phosphatase 62 Total Protein 8.2 Albumin 5.1 Globulin 3.1 Albumin/Globulin Ratio 1.6 Lipase 28 TSH 1.87 Urine Color Urine Clarity Urine pH Ur Specific [place] Urine Protein Urine Glucose (UA) Urine Ketones Urine Occult Blood Urine Nitrite Urine Bilirubin Urine Urobilinogen Ur Leukocyte Esterase Ur Microscopic Review Urine Culture Comments Urine HCG, Qual Salicylates < 6.0 Urine Opiates Screen Ur Oxycodone Screen Urine Methadone Screen Ur Propoxyphene Screen Acetaminophen < 10 L Ur Barbiturates Screen Ur Tricyclics Screen Ur Phencyclidine Scrn Ur Amphetamine Screen U Methamphetamines Scrn U Benzodiazepines Scrn Urine Cocaine Screen U Cannabinoids Screen Ethyl Alcohol < 5.0 SARS-CoV-2 (PCR) 03/08/22 03/08/22 10:12 13:02 WBC RBC Hgb Hct MCV MCH MCHC RDW Plt Count MPV Neut # (Auto) Lymph # (Auto) [place] # (Auto) Eos # (Auto) Baso # (Auto) Absolute Nucleated RBC Nucleated RBC % Sodium Potassium Chloride Carbon Dioxide Anion Gap BUN Creatinine Estimated GFR (MDRD) Glucose Calcium Total Bilirubin AST ALT Alkaline Phosphatase Total Protein Albumin Globulin Albumin/Globulin Ratio Lipase TSH Urine Color DARK YELLOW Urine Clarity CLEAR Urine pH 6.0 Ur Specific [place] >=1.030 H Urine Protein TRACE Urine Glucose (UA) NEGATIVE Urine Ketones >=80 H Urine Occult Blood TRACE-INTA Urine Nitrite NEGATIVE Urine Bilirubin NEGATIVE Urine Urobilinogen 0.2 (NORMAL) Ur Leukocyte Esterase NEGATIVE Ur Microscopic Review NOT INDICATED Urine Culture Comments NOT INDICATED Urine HCG, Qual NEGATIVE Salicylates Urine Opiates Screen NEGATIVE Ur Oxycodone Screen NEGATIVE Urine Methadone Screen NEGATIVE Ur Propoxyphene Screen NEGATIVE Acetaminophen Ur Barbiturates Screen NEGATIVE Ur Tricyclics Screen NEGATIVE Ur Phencyclidine Scrn NEGATIVE Ur Amphetamine Screen NEGATIVE U Methamphetamines Scrn NEGATIVE U Benzodiazepines Scrn NEGATIVE Urine Cocaine Screen NEGATIVE U Cannabinoids Screen NEGATIVE Ethyl Alcohol SARS-CoV-2 (PCR) NOT DETECTED PD Medical Decision Making - ED course Complexity details: reviewed results, re-evaluated patient, d/w patient ED course: Pt presenting for evaluation of anxiety, racing thoughts, hearing voices. Labs reviewed without significant findings including normal TSH. She is not intoxicated. She appears disorganized during conversation. No SI/HI but appears decompensated due to her psychiatric symptoms and would benefit from inpatient stabilization. She was seen by SW and pt is voluntary for placement. Received xanax here with minimal improvement in symptoms. 1201 - Patient has been seen by social work. Continues to appear disorganized with her thoughts. Social work is concerned that she is likely decompensated and would benefit from inpatient hospitalization so we will pursue voluntary placement. 1410 - Patient has been accepted to [facility]. Please see social work note.P atient is voluntary and in agreement with this plan. Departure - Departure Disposition: 65 Psych Hosp/Unit DC/Xfer Clinical Impression: Hallucinations, Bipolar disorder Condition: Stable
[2022-03-08 09:08] LABS: BASOPHILS % (AUTO) 0.5 %; EOSINOPHILS # (AUTO) 0.1 10^3/uL (0.0-0.7); EOSINOPHILS % (AUTO) 0.8 %; HCT - HEMATOCRIT 42.6 % (37.0-47.0); HGB - HEMOGLOBIN 13.8 g/dL (12.0-16.0); LYMPHOCYTES # (AUTO) 1.7 10^3/uL (1.5-3.5); MEAN CORPUSCULAR HEMOGLOBIN 28.2 pg (27.0-31.0); MEAN CORPUSCULAR HGB CONC 32.4 g/dL (32.0-36.0); MEAN CORPUSCULAR VOLUME 87.1 fL (81.0-99.0); MEAN PLATELET VOLUME 9.6 fL (7.9-10.8); MONOCYTES # (AUTO) 0.8 10^3/uL (0.0-1.0); MONOCYTES % (AUTO) 9.8 %; NEUTROPHILS # (AUTO) 5.8 10^3/uL (1.5-6.6); NEUTROPHILS % (AUTO) 68.5 %; PLT - PLATELET COUNT 438 10^3/uL (130-450); RED BLOOD COUNT 4.89 10^6/uL (4.20-5.40); RED CELL DISTRIBUTION WIDTH 15.1 % (12.0-15.0); WHITE BLOOD COUNT 8.5 x10^3/uL (4.8-10.8)
[2022-03-08 09:30] LABS: ACETAMINOPHEN < 10 ug/mL (10-30); ALBUMIN 5.1 g/dL (3.2-5.5); ALBUMIN/GLOBULIN RATIO 1.6 (1.0-2.2); ALKALINE PHOSPHATASE 62 IU/L (42-121); ALT ALANINE AMINOTRANSFERASE 22 IU/L (10-60); AST ASPARTATE AMINOTRANSFERASE 37 IU/L (10-42); BUN - BLOOD UREA NITROGEN 19 mg/dL (6-20); CALCIUM 9.3 mg/dL (8.5-10.3); CARBON DIOXIDE - CO2 19 mmol/L (21-32); CHLORIDE 104 mmol/L (101-111); CREATININE 0.7 mg/dL (0.4-1.0); ETOH - ETHANOL < 5.0 mg/dL; GFR - MDRD 89 (>89); GLUCOSE 110 mg/dL (70-100); LIPASE 28 U/L (22-51); POTASSIUM 3.6 mmol/L (3.5-5.0); SALICYLATE < 6.0 mg/dL; SODIUM 137 mmol/L (135-145); TOTAL PROTEIN 8.2 g/dL (6.7-8.2)
[2022-03-08] MEDS ORDERED: ALPRAZolam 0.25 MG TABLET PO STA (09:47)
[2022-03-08 10:24] LABS: GLUCOSE, URINE (UA) NEGATIVE (NEGATIVE); KETONES,URINE (UA) >=80 mg/dL (NEGATIVE); LEUKOCYTE ESTERASE, URINE NEGATIVE (NEGATIVE); MUDS CUTOFF CONCENTRATIONS CUTOFF CONC BELOW:; NITRITE,URINE NEGATIVE (NEGATIVE); OCCULT BLOOD,URINE TRACE-INTA (NEGATIVE); PROTEIN,URINE TRACE mg/dL (NEGATIVE); UROBILINOGEN,URINE 0.2 (NORMAL) E.U./dL (NORMAL)
[2022-03-08 10:33] LABS: AMPHETAMINE SCREEN,URINE NEGATIVE (NEGATIVE); BARBITURATE SCREEN,UR NEGATIVE (NEGATIVE); BENZODIAZEPINES SCREEN, URINE NEGATIVE (NEGATIVE); BILIRUBIN,URINE NEGATIVE (NEGATIVE); CLARITY,URINE CLEAR (CLEAR); COCAINE SCREEN URINE NEGATIVE (NEGATIVE); HCG UR QUAL NEGATIVE; ICTOTEST,URINE NEGATIVE; METHADONE SCREEN, URINE NEGATIVE (NEGATIVE); METHAMPHETAMINES SCREEN, URINE NEGATIVE (NEGATIVE); OPIATE SCREEN, URINE NEGATIVE (NEGATIVE); OXYCODONE SCREEN, URINE NEGATIVE (NEGATIVE); THC CANNABINOID SCREEN, URINE NEGATIVE (NEGATIVE); TRICYCLIC ANTIDEPRESSANT,URINE NEGATIVE (NEGATIVE)
[2022-03-08 10:34] LABS: PROPOXYPHENE SCREEN, URINE NEGATIVE (NEGATIVE)
[2022-03-08] MEDS ORDERED: LORazepam 1 MG TABLET PO STA ×2 (16:18→19:25)
[2022-03-08 19:24] VITALS: BP 137/97
== END 2022-03-08 19:48 ==
LOC: ED 08:29
DX: F31.9 Bipolar disorder, unspecified (principal); R44.0 Auditory hallucinations; F17.200 Nicotine dependence, unspecified, uncomplicated; R00.0 Tachycardia, unspecified; Z20.822 Contact with and (suspected) exposure to COVID-19
CPT/HCPCS: 36415; 80053; 80306; 80307; 80320; 80329; 81003; 81025; 83690; 84443; 85025; 87635; 93005; 99285; A9270; J8499; 81001; 87086

== ENCOUNTER 2022-04-10 07:01 | Outpatient (CLI) | payer MEDICAID | END 2022-04-10 07:02 | disposition critical access hospital (66) | LOC: EMS 07:01 | DX: Z04.6 Encounter for general psychiatric examination, requested by authority (principal); R45.851 Suicidal ideations; Z72.89 Other problems related to lifestyle | CPT/HCPCS: A0425; A0429; A0999 ==

== ENCOUNTER 2022-04-10 07:17 | Emergency (ER) | payer MEDICAID ==
[2022-04-10] MEDS ORDERED: OLANZapine ODT 5 MG TABLET TL ONE (07:41)
[2022-04-10 07:46] LABS: BASOPHILS % (AUTO) 0.6 %; EOSINOPHILS # (AUTO) 0.1 10^3/uL (0.0-0.7); EOSINOPHILS % (AUTO) 1.1 %; HCT - HEMATOCRIT 42.2 % (37.0-47.0); HGB - HEMOGLOBIN 13.7 g/dL (12.0-16.0); LYMPHOCYTES # (AUTO) 2.1 10^3/uL (1.5-3.5); LYMPHOCYTES % (AUTO) 32.2 %; MEAN CORPUSCULAR HEMOGLOBIN 27.1 pg (27.0-31.0); MEAN CORPUSCULAR HGB CONC 32.5 g/dL (32.0-36.0); MEAN CORPUSCULAR VOLUME 83.4 fL (81.0-99.0); MEAN PLATELET VOLUME 9.2 fL (7.9-10.8); MONOCYTES # (AUTO) 0.8 10^3/uL (0.0-1.0); MONOCYTES % (AUTO) 11.8 %; NEUTROPHILS # (AUTO) 3.5 10^3/uL (1.5-6.6); NEUTROPHILS % (AUTO) 53.7 %; PLT - PLATELET COUNT 535 10^3/uL (130-450); RED BLOOD COUNT 5.06 10^6/uL (4.20-5.40); RED CELL DISTRIBUTION WIDTH 14.7 % (12.0-15.0); WHITE BLOOD COUNT 6.5 x10^3/uL (4.8-10.8)
--- NOTE | 2022-04-10 07:51 | ED Physician Documentation ---
PD HPI MHE - Stated complaint Stated Complaint: SI - Chief complaint Chief Complaint: MHE - History obtained from History obtained from: Patient, EMS - Additional information Additional information: Patient is a 47-year-old female presenting for evaluation of suicidal thoughts. She admits to heavy alcohol use but will not quantify how much. Per EMS, she would not leave the hotel room where she was being kicked out of and then stated that she wanted to so EMS and police were called. She was found naked and was unable to put her close back on an due to level of her intoxication they felt that she was a danger to herself and brought her in to the emergency department under an MICHEL. Patient is not able to give much history due to her intoxication. She does state that she wants to shoot herself or asks for someone to shoot her. Review of Systems Unable to obtain: Intoxicated PD PAST MEDICAL HISTORY - Past Medical History Cardiovascular: None Respiratory: None Neuro: None Endocrine/Autoimmune: None GI: None ANTHROPOLOGY DEPARTMENT CHAIR: None : None HEENT: None Psych: Depression, Post traumatic stress disorder Musculoskeletal: None Derm: None - Past Surgical History Past Surgical History: Yes /ANTHROPOLOGY DEPARTMENT CHAIR: section, Breast implants Neuro: Other - Present Medications Home Medications: Ambulatory Orders Medication Instructions Recorded Confirmed Naltrexone HCl 50 mg ORAL DAILY 05/24/19 03/08/22 lamoTRIgine [LaMICtal] 100 mg PO DAILY 05/24/19 03/08/22 buPROPion HCL [Bupropion HCl Sr] 200 mg PO DAILY 03/08/22 03/08/22 - Allergies Allergies/Adverse Reactions: Allergies Allergy/AdvReac Type Severity Reaction Status Date / Time No Known Drug Allergies Allergy Verified 03/08/22 08:32 - Social History Does the pt smoke?: Yes Smoking Status: Current every day smoker Does the pt drink ETOH?: Yes Does the pt have substance abuse?: No - Immunizations Immunizations are current?: Yes - POLST Patient has POLST: No POLST Status: Full Code PD ED PE NORMAL - General General: No acute distress, Well developed/nourished, Other (Alert and oriented to person and place,) - HEENT HEENT: Atraumatic, PERRL, EOMI, Pharynx benign - Neck Neck: Supple, no meningeal sign, No bony TTP - Cardiac Cardiac: RRR - Respiratory Respiratory: No respiratory distress, Clear bilaterally - Abdomen Abdomen: Soft, Non tender, Non distended - Derm Derm: Warm and dry - Extremities Extremities: No deformity - Neuro Neuro: No motor deficit, Other (Alert and oriented to person and place, not able to provide much history regarding recent events, no focal deficits, able to ambulate on her own, slurred speech ) Eye Opening: Spontaneous Motor: Obeys Commands Verbal: Confused GCS Score: 14 - Psych Psych: Other (Labile) Results - Vitals Vitals: Vital Signs - 24 hr 04/10/22 07:25 Temperature 36 C L Heart Rate 93 Respiratory 22 Rate Blood Pressure 134/83 H O2 Saturation 99 Oxygen O2 Source Room air - Labs Labs: Laboratory Tests 04/10/22 04/10/22 04/10/22 07:37 07:37 07:37 WBC 6.5 RBC 5.06 Hgb 13.7 Hct 42.2 MCV 83.4 MCH 27.1 MCHC 32.5 RDW 14.7 Plt Count 535 H MPV 9.2 Neut # (Auto) 3.5 Lymph # (Auto) 2.1 [place] # (Auto) 0.8 Eos # (Auto) 0.1 Baso # (Auto) 0.0 Absolute Nucleated RBC 0.00 Nucleated RBC % 0.0 Sodium 143 Potassium 3.5 Chloride 107 Carbon Dioxide 25 Anion Gap 11.0 BUN 14 Creatinine 0.7 Estimated GFR (MDRD) 89 Glucose 113 H Calcium 8.4 L Total Bilirubin 0.5 AST 36 ALT 31 Alkaline Phosphatase 85 Total Protein 7.8 Albumin 4.2 Globulin 3.6 Albumin/Globulin Ratio 1.2 Lipase 242 H TSH 3.78 Serum HCG, Qual Urine Color Urine Clarity Urine pH Ur Specific [place] Urine Protein Urine Glucose (UA) Urine Ketones Urine Occult Blood Urine Nitrite Urine Bilirubin Urine Urobilinogen Ur Leukocyte Esterase Ur Microscopic Review Urine Culture Comments Salicylates < 6.0 Urine Opiates Screen Ur Oxycodone Screen Urine Methadone Screen Ur Propoxyphene Screen Acetaminophen < 10 L Ur Barbiturates Screen Ur Tricyclics Screen Ur Phencyclidine Scrn Ur Amphetamine Screen U Methamphetamines Scrn U Benzodiazepines Scrn Urine Cocaine Screen U Cannabinoids Screen Ethyl Alcohol 407.3 SARS-CoV-2 (PCR) 04/10/22 04/10/22 04/10/22 07:37 10:35 10:35 WBC RBC Hgb Hct MCV MCH MCHC RDW Plt Count MPV Neut # (Auto) Lymph # (Auto) [place] # (Auto) Eos # (Auto) Baso # (Auto) Absolute Nucleated RBC Nucleated RBC % Sodium Potassium Chloride Carbon Dioxide Anion Gap BUN Creatinine Estimated GFR (MDRD) Glucose Calcium Total Bilirubin AST ALT Alkaline Phosphatase Total Protein Albumin Globulin Albumin/Globulin Ratio Lipase TSH Serum HCG, Qual NEGATIVE Urine Color YELLOW Urine Clarity CLEAR Urine pH 5.5 Ur Specific [place] 1.015 Urine Protein NEGATIVE Urine Glucose (UA) NEGATIVE Urine Ketones NEGATIVE Urine Occult Blood TRACE-INTA Urine Nitrite NEGATIVE Urine Bilirubin NEGATIVE Urine Urobilinogen 0.2 (NORMAL) Ur Leukocyte Esterase NEGATIVE Ur Microscopic Review NOT INDICATED Urine Culture Comments NOT INDICATED Salicylates Urine Opiates Screen NEGATIVE Ur Oxycodone Screen NEGATIVE Urine Methadone Screen NEGATIVE Ur Propoxyphene Screen NEGATIVE Acetaminophen Ur Barbiturates Screen NEGATIVE Ur Tricyclics Screen NEGATIVE Ur Phencyclidine Scrn NEGATIVE Ur Amphetamine Screen NEGATIVE U Methamphetamines Scrn NEGATIVE U Benzodiazepines Scrn NEGATIVE Urine Cocaine Screen NEGATIVE U Cannabinoids Screen NEGATIVE Ethyl Alcohol SARS-CoV-2 (PCR) NOT DETECTED 04/10/22 14:06 WBC RBC Hgb Hct MCV MCH MCHC RDW Plt Count MPV Neut # (Auto) Lymph # (Auto) [place] # (Auto) Eos # (Auto) Baso # (Auto) Absolute Nucleated RBC Nucleated RBC % Sodium Potassium Chloride Carbon Dioxide Anion Gap BUN Creatinine Estimated GFR (MDRD) Glucose Calcium Total Bilirubin AST ALT Alkaline Phosphatase Total Protein Albumin Globulin Albumin/Globulin Ratio Lipase TSH Serum HCG, Qual Urine Color Urine Clarity Urine pH Ur Specific [place] Urine Protein Urine Glucose (UA) Urine Ketones Urine Occult Blood Urine Nitrite Urine Bilirubin Urine Urobilinogen Ur Leukocyte Esterase Ur Microscopic Review Urine Culture Comments Salicylates Urine Opiates Screen Ur Oxycodone Screen Urine Methadone Screen Ur Propoxyphene Screen Acetaminophen Ur Barbiturates Screen Ur Tricyclics Screen Ur Phencyclidine Scrn Ur Amphetamine Screen U Methamphetamines Scrn U Benzodiazepines Scrn Urine Cocaine Screen U Cannabinoids Screen Ethyl Alcohol 181.6 SARS-CoV-2 (PCR) PD Medical Decision Making - ED course Complexity details: reviewed results, re-evaluated patient, d/w patient ED course: Patient is a 47-year-old presenting for evaluation of suicidal thoughts in the setting of heavy alcohol use. I saw this patient Earlier this year in February at which time she was transferred to [facility] for psychiatric treatment. She does appear quite intoxicated on initial presentation. Her labs were reviewed demonstrating a high alcohol level. She also had an elevated lipase but her abdominal exam is benign and she is tolerating p.o. making pancreatitis less lik zohaib. She was monitored for several hours and continued to sober. She continued to report feeling unsafe and was seen by social work. At this time she is voluntary for placement. Daniel cope would like her alcohol level to be within legal limits prior to consideration.She is clinically sobered up here but we will recheck alcohol level until it has normalized and then Reevaluate her for psychiatric placement. 0747 - Patient stating she feels anxious, wants to , then talking nonsensically And crying, mood is very labile.Has a history of presentations with bizarre behaviors including last month. We will give a dose of p.o. Zyprexa which patient is willing to take to see if this helps with her psychiatric symptoms and to allow her to rest And sober up.This is not given As a chemical restraint. 0825 - Labs reviewed and lipase noted to be elevated. Alcohol level is also quite elevated. However patient denies abdominal pain. She had requested a sandwich and was given 1 and tolerated this without any vomiting. Repeat abdominal exam is benign.Do not think she clinically has signs of pancreatitis. 1055 - Patient was able to ambulate to the bathroom and give a UA sample at this time. She is speaking more clearly. She states that she has been off her antidepressants and that she is scared that she is going to do something to hurt herself. She does acknowledge that she has been drinking heavily over the past 2 days. She is wanting to get help. Although her EtOH level is quite elevated, she is speaking clearly and holding a conversation Seems appropriate for social work evaluation at this time. 1452 - Patient has been seen by social work. Daniel cope would like her EtOH level to be Normal prior to consideration.Repeat EtOH level at this time is 181.Patient clinically appears to be sober, speaking clearly, Ambulating on her own without difficulty. She remains voluntary for placement and states that she does want to get help as she has been self-medicating With alcohol. [facility].
[2022-04-10 07:59] LABS: ACETAMINOPHEN < 10 ug/mL (10-30); ALBUMIN 4.2 g/dL (3.2-5.5); ALBUMIN/GLOBULIN RATIO 1.2 (1.0-2.2); ALKALINE PHOSPHATASE 85 IU/L (42-121); ALT ALANINE AMINOTRANSFERASE 31 IU/L (10-60); AST ASPARTATE AMINOTRANSFERASE 36 IU/L (10-42); BILIRUBIN,TOTAL 0.5 mg/dL (0.2-1.0); BUN - BLOOD UREA NITROGEN 14 mg/dL (6-20); CALCIUM 8.4 mg/dL (8.5-10.3); CARBON DIOXIDE - CO2 25 mmol/L (21-32); CHLORIDE 107 mmol/L (101-111); CREATININE 0.7 mg/dL (0.4-1.0); ETOH - ETHANOL 407.3 mg/dL; GFR - MDRD 89 (>89); GLUCOSE 113 mg/dL (70-100); LIPASE 242 U/L (22-51); POTASSIUM 3.5 mmol/L (3.5-5.0); SALICYLATE < 6.0 mg/dL; SODIUM 143 mmol/L (135-145); TOTAL PROTEIN 7.8 g/dL (6.7-8.2)
[2022-04-10 08:39] LABS: HCG,QUALITATIVE BLOOD NEGATIVE
[2022-04-10 10:46] LABS: MUDS CUTOFF CONCENTRATIONS CUTOFF CONC BELOW:
[2022-04-10 10:49] LABS: BILIRUBIN,URINE NEGATIVE (NEGATIVE); GLUCOSE, URINE (UA) NEGATIVE (NEGATIVE); KETONES,URINE (UA) NEGATIVE (NEGATIVE); LEUKOCYTE ESTERASE, URINE NEGATIVE (NEGATIVE); NITRITE,URINE NEGATIVE (NEGATIVE); OCCULT BLOOD,URINE TRACE-INTA (NEGATIVE); PH,URINE 5.5 PH (5.0-7.5); PROTEIN,URINE NEGATIVE (NEGATIVE); UROBILINOGEN,URINE 0.2 (NORMAL) E.U./dL (NORMAL)
[2022-04-10 11:00] LABS: AMPHETAMINE SCREEN,URINE NEGATIVE (NEGATIVE); BENZODIAZEPINES SCREEN, URINE NEGATIVE (NEGATIVE); CLARITY,URINE CLEAR (CLEAR); COCAINE SCREEN URINE NEGATIVE (NEGATIVE); METHAMPHETAMINES SCREEN, URINE NEGATIVE (NEGATIVE); OPIATE SCREEN, URINE NEGATIVE (NEGATIVE); THC CANNABINOID SCREEN, URINE NEGATIVE (NEGATIVE); TRICYCLIC ANTIDEPRESSANT,URINE NEGATIVE (NEGATIVE)
[2022-04-10 11:01] LABS: BARBITURATE SCREEN,UR NEGATIVE (NEGATIVE); METHADONE SCREEN, URINE NEGATIVE (NEGATIVE); OXYCODONE SCREEN, URINE NEGATIVE (NEGATIVE); PROPOXYPHENE SCREEN, URINE NEGATIVE (NEGATIVE)
[2022-04-10] MEDS ORDERED: LORazepam 1 MG TABLET PO STA (17:39)
--- NOTE | 2022-04-10 19:09 | ED Physician Documentation ---
ED Addendum - Addendum Addendum: 04/10/22 19:[address] Price at 6 PM shift change. She has been accepted to [facility] and cobras are completed. She is stable for transfer. Diagnosis: 1. Alcohol intoxication 2. Depression Condition: Stable Disposition: Transferred to [facility]
[2022-04-11 01:01] VITALS: BP 122/82
== END 2022-04-11 02:23 ==
LOC: EDUNIT# → ED 07:17
DX: R45.851 Suicidal ideations (principal); F32.A Depression, unspecified; F10.129 Alcohol abuse with intoxication, unspecified; Y90.8 Blood alcohol level of 240 mg/100 ml or more; F17.200 Nicotine dependence, unspecified, uncomplicated; Z20.822 Contact with and (suspected) exposure to COVID-19
CPT/HCPCS: 36415; 80053; 80306; 80307; 80320; 80329; 81003; 83690; 84443; 84703; 85025; 87635; 99284; 99285; A9270; J8499; 81001; 87086

== ENCOUNTER 2022-04-21 20:37 | Outpatient (CLI) | payer MEDICAID | END 2022-04-21 23:59 | disposition critical access hospital (66) | LOC: EMS 20:37 | DX: R42 Dizziness and giddiness (principal); R53.1 Weakness; T43.211A Poisoning by selective serotonin and norepinephrine reuptake inhibitors, accidental (unintentional), initial encounter | CPT/HCPCS: A0425; A0429; A0999 ==

== ENCOUNTER 2022-04-21 20:54 | Observation (INO) | payer MEDICAID ==
[2022-04-21] MEDS ORDERED: SODIUM CHLORIDE 0.9% 1,000 ML IV STA ×2 (21:06)
--- NOTE | 2022-04-21 21:13 | ED Physician Documentation ---
History of Present Illness - Stated complaint Stated Complaint: ? OD - History obtained from History obtained from: Patient, EMS - History of Present Illness Timing: Today Pain level max: 0 Pain level now: 0 - Additonal information Additional information: Patient is a 47-year-old female who states that she took an overdose of her medications and trying to calm her panic attack. She does not know how many pills of what she took. The paramedics brought 3 bottles of pills in with her. She has Strattera 40 mg that is prescribed 1 tab per day. This was filled 5 days ago and she is missing 24 tabs. She also has Risperdal 1 mg tabs that were also prescribed 5 days ago and she is missing 14 tabs. She also has Wellbutrin 100 mg sustained-release twice a day was prescribed 5 days ago and she is missing 15 tabs. Patient states that she was not suicidal and was not trying to harm herself. She states she feels very anxious and is requesting Xanax. She believes she took the pills 3-3.5 hours ago. Patient was recently discharged from [facility] Review of Systems Constitutional: denies: Fever, Chills Respiratory: denies: Cough GI: denies: Vomiting, Diarrhea Skin: denies: Rash Musculoskeletal: denies: Neck pain, Back pain PD PAST MEDICAL HISTORY - Past Medical History Cardiovascular: None Respiratory: None Neuro: None Endocrine/Autoimmune: None GI: None MANAGER COLLECTION: None : None HEENT: None Psych: Depression, Post traumatic stress disorder Musculoskeletal: None Derm: None - Past Surgical History Past Surgical History: Yes /MANAGER COLLECTION: section, Breast implants Neuro: Other - Present Medications Home Medications: Ambulatory Orders Medication Instructions Recorded Confirmed Naltrexone HCl 50 mg ORAL DAILY 05/24/19 03/08/22 Risperidone [Risperdal] 1 mg .ROUTE DAILY 04/21/22 04/21/22 buPROPion [Wellbutrin Sr] 100 mg PO BID 04/21/22 04/21/22 - Allergies Allergies/Adverse Reactions: Allergies Allergy/AdvReac Type Severity Reaction Status Date / Time No Known Drug Allergies Allergy Verified 03/08/22 08:32 - Social History Does the pt smoke?: Yes Smoking Status: Current every day smoker Does the pt drink ETOH?: Yes Does the pt have substance abuse?: No - Immunizations Immunizations are current?: Yes - POLST Patient has POLST: No POLST Status: Full Code PD ED PE NORMAL - Vitals Vital signs reviewed: Yes - General General: Alert and oriented X 3, No acute distress - HEENT HEENT: PERRL, Moist mucous membranes - Neck Neck: Supple, no meningeal sign - Cardiac Cardiac: RRR, Strong equal pulses - Respiratory Respiratory: No respiratory distress, Clear bilaterally - Abdomen Abdomen: Soft, Non tender, Non distended - Derm Derm: Warm and dry, No rash - Extremities Extremities: No deformity - Neuro Neuro: Alert and oriented X 3, video control engineer 2-12 intact, No motor deficit, No sensory deficit, Normal speech - Psych Psych: Other (Anxious appearing) Results - Vitals Vitals: Vital Signs - 24 hr 04/21/22 04/21/22 04/21/22 21:07 21:15 22:00 Temperature 36.6 C Heart Rate 102 H 100 93 Respiratory 14 17 Rate Blood Pressure 97/71 117/86 H 115/87 H O2 Saturation 98 96 98 04/21/22 23:00 Temperature Heart Rate 93 Respiratory 22 Rate Blood Pressure 134/89 H O2 Saturation 100 Oxygen O2 Source Room air - EKG (time done) 2104 EKG releavant findings:: EKG personally interpreted by author of this note. Relevant findings are: Rate: Rate (enter#) (99) Rhythm: NSR [place]: Normal Intervals: Normal [place], Prolonged QT (QT 487) QRS: Normal Ischemia: Normal ST segments - Labs Labs: Laboratory Tests 04/21/22 04/21/22 04/21/22 21:04 21:04 21:04 WBC 10.5 RBC 4.81 Hgb 13.1 Hct 40.3 MCV 83.8 MCH 27.2 MCHC 32.5 RDW 14.6 Plt Count 443 MPV 9.1 Neut # (Auto) 8.0 H Lymph # (Auto) 1.4 L [place] # (Auto) 1.0 Eos # (Auto) 0.0 Baso # (Auto) 0.0 Absolute Nucleated RBC 0.00 Nucleated RBC % 0.0 Sodium 140 Potassium 3.7 Chloride 104 Carbon Dioxide 25 Anion Gap 11.0 BUN 18 Creatinine 0.7 Estimated GFR (MDRD) 89 Glucose 95 Calcium 9.5 Phosphorus Magnesium Total Bilirubin 0.8 AST 31 ALT 20 Alkaline Phosphatase 80 Total Protein 8.2 Albumin 4.5 Globulin 3.7 Albumin/Globulin Ratio 1.2 Lipase 27 TSH 2.73 Salicylates < 6.0 Acetaminophen < 10 L Ethyl Alcohol < 5.0 04/21/22 21:04 WBC RBC Hgb Hct MCV MCH MCHC RDW Plt Count MPV Neut # (Auto) Lymph # (Auto) [place] # (Auto) Eos # (Auto) Baso # (Auto) Absolute Nucleated RBC Nucleated RBC % Sodium Potassium Chloride Carbon Dioxide Anion Gap BUN Creatinine Estimated GFR (MDRD) Glucose Calcium Phosphorus 3.2 Magnesium 2.9 H Total Bilirubin AST ALT Alkaline Phosphatase Total Protein Albumin Globulin Albumin/Globulin Ratio Lipase TSH Salicylates Acetaminophen Ethyl Alcohol PD Medical Decision Making - ED course Complexity details: reviewed results, re-evaluated patient, considered differential, d/w patient, d/w economic consultant Reviewed Lab Results: CBC does not show any acute abnormalities. ER abdominal panel, TSH are normal as well. Her magnesium is on the upper end of normal, just elevated above 2.8. Phosphorus is normal. Her salicylates, ethyl alcohol and acetaminophen are negative. ED course: Poison control was contacted and they recommend telemetry monitoring x24 hours. The patient was given a dose of Ativan here for agitation. She does have a history of alcohol use and abuse. Patient's EKG does show a borderline QT prolongation. She was given magnesium. The patient adamantly denies being suicidal. We will admit the patient for further care. Discussed the case with the hospitalist who accepts This document was made in part using voice recognition software. While efforts are made to proofread this document, sound alike and grammatical errors may occur. Departure - Departure Disposition: ED Place in Observation Clinical Impression: Overdose Qualifiers: Encounter type: initial encounter Injury intent: undetermined intent Qualified Code(s): T50.904A - Poisoning by unspecified drugs, medicaments and biological substances, undetermined, initial encounter Polysubstance overdose Qualifiers: Encounter type: initial encounter Injury intent: undetermined intent Qualified Code(s): T50.904A - Poisoning by unspecified drugs, medicaments and biological substances, undetermined, initial encounter Condition: Stable
[2022-04-21 21:16] LABS: BASOPHILS % (AUTO) 0.4 %; EOSINOPHILS % (AUTO) 0.1 %; HCT - HEMATOCRIT 40.3 % (37.0-47.0); HGB - HEMOGLOBIN 13.1 g/dL (12.0-16.0); LYMPHOCYTES # (AUTO) 1.4 10^3/uL (1.5-3.5); MEAN CORPUSCULAR HEMOGLOBIN 27.2 pg (27.0-31.0); MEAN CORPUSCULAR HGB CONC 32.5 g/dL (32.0-36.0); MEAN CORPUSCULAR VOLUME 83.8 fL (81.0-99.0); MEAN PLATELET VOLUME 9.1 fL (7.9-10.8); MONOCYTES % (AUTO) 9.5 %; NEUTROPHILS % (AUTO) 76.6 %; PLT - PLATELET COUNT 443 10^3/uL (130-450); RED BLOOD COUNT 4.81 10^6/uL (4.20-5.40); RED CELL DISTRIBUTION WIDTH 14.6 % (12.0-15.0); WHITE BLOOD COUNT 10.5 x10^3/uL (4.8-10.8)
[2022-04-21] MEDS ORDERED: MAGNESIUM SULFATE 2 GRAM 2 GM/50 ML BAG IV ONE (21:19)
[2022-04-21 21:32] LABS: ACETAMINOPHEN < 10 ug/mL (10-30); ALBUMIN 4.5 g/dL (3.2-5.5); ALBUMIN/GLOBULIN RATIO 1.2 (1.0-2.2); ALKALINE PHOSPHATASE 80 IU/L (42-121); ALT ALANINE AMINOTRANSFERASE 20 IU/L (10-60); AST ASPARTATE AMINOTRANSFERASE 31 IU/L (10-42); BILIRUBIN,TOTAL 0.8 mg/dL (0.2-1.0); BUN - BLOOD UREA NITROGEN 18 mg/dL (6-20); CALCIUM 9.5 mg/dL (8.5-10.3); CARBON DIOXIDE - CO2 25 mmol/L (21-32); CHLORIDE 104 mmol/L (101-111); CREATININE 0.7 mg/dL (0.4-1.0); ETOH - ETHANOL < 5.0 mg/dL; GFR - MDRD 89 (>89); GLUCOSE 95 mg/dL (70-100); LIPASE 27 U/L (22-51); POTASSIUM 3.7 mmol/L (3.5-5.0); SALICYLATE < 6.0 mg/dL; SODIUM 140 mmol/L (135-145); TOTAL PROTEIN 8.2 g/dL (6.7-8.2)
[2022-04-21 21:33] LABS: MAGNESIUM 2.9 mg/dL (1.7-2.8); PHOSPHORUS 3.2 mg/dL (2.5-4.6)
[2022-04-21] MEDS ORDERED: LORazepam 2 MG/ML VIAL IVP STA (21:53)
[2022-04-21 23:06] LABS: MUDS CUTOFF CONCENTRATIONS CUTOFF CONC BELOW:
--- NOTE | 2022-04-21 23:12 | HISTORY & PHYSICAL EXAMINATION ---
Chief Complaint - Chief Complaint Chief Complaint: overdose History of Present Illness - Admitted From Admitted From:: home - History Obtained From History obtained from: patient and ER physician Exam Limitations: telemedicine - History of Present Illness HPI Comment/Other: Ms Wu is a 47 yo F with hx . Presents approx 3-3.5 hours after ingesting multiple medications for panic attack. Denies SI/SA. Recently discharged from [facility]. At time of my evaluation pt is requesting Adderall, states that she has an appointment with her doctor tomorrow for a prescription, we discussed that she will not get adderall tonight due to the strattera that she took. She feels better since receiving IV ativan in ER. She denies headache, dizziness, vision problems, cp, sob, cough, fevers, chills, abd pain, n/v, diarrhea. Medications ingested (per ER provider review w patient med bottles): -Strattera 40 mg that is prescribed 1 tab per day. This was filled 5 days ago and she is missing 24 tabs. -Risperdal 1 mg tabs that were also prescribed 5 days ago and she is missing 14 tabs. -Wellbutrin 100 mg sustained-release twice a day was prescribed 5 days ago and she is missing 15 tabs. History - Past Medical History Cardiovascular: reports: None Respiratory: reports: None Neuro: reports: None Endocrine/Autoimmune: reports: None GI: reports: None CASING OPERATOR: reports: None : reports: None HEENT: reports: None Psych: reports: Depression, Anxiety, Panic attacks, ADD/ADHD, Post traumatic stress disorder Musculoskeletal: reports: None Derm: reports: None MRSA Hx?: No - Past Surgical History /CASING OPERATOR: reports: section, Breast implants Neuro: reports: Other - Substance History Use: Uses substance without health or social issues: Tobacco, Sedative - POLST Patient has POLST: No POLST Status: Full Code Meds/Allgy - Home Medications Home Medications: Ambulatory Orders Medication Instructions Recorded Confirmed Naltrexone HCl 50 mg ORAL DAILY 05/24/19 03/08/22 Risperidone [Risperdal] 1 mg .ROUTE DAILY 04/21/22 04/21/22 buPROPion [Wellbutrin Sr] 100 mg PO BID 04/21/22 04/21/22 - Allergies Allergies/Adverse Reactions: Allergies Allergy/AdvReac Type Severity Reaction Status Date / Time No Known Drug Allergies Allergy Verified 03/08/22 08:32 Review of Systems - Constitutional Constitutional: denies: Fatigue, Fever, Chills, Malaise - Eyes Eyes: denies: Blurred vision - Ears, Nose & Throat Ears, Nose & Throat: denies: Hearing loss - Cardiovascular Cariovascular: denies: Palpitations, Chest pain, Lightheadedness - Respiratory Respiratory: denies: Cough, Sputum production - Gastrointestinal Gastrointestinal: denies: Abdominal pain, Diarrhea, Nausea, Vomiting - Musculoskeletal Musculoskeletal: denies: Muscle aches - Integumentary Integumentary: denies: Rash - Neurological Neurological: denies: General weakness - Psychiatric Psychiatric: reports: Anxiety. denies: Suicidal Exam - Vital Signs Reviewed Vital Signs: Yes Vital Signs: Vital Signs x48h Temp Pulse Resp BP Pulse Ox 04/21/22 22:00 93 17 115/87 H 98 04/21/22 21:15 100 117/86 H 96 04/21/22 21:07 36.6 C 102 H 14 97/71 98 - Physical Exam General Appearance: positive: Mild distress (anxious/restless) ENT: positive: ENT inspection nml Neck: positive: Nml inspection Respiratory: positive: No respiratory distress Skin: positive: Color nml, No rash Extremities: positive: Full ROM Neurologic/Psychiatric: positive: Oriented x3, Motor nml, Other (anxious, flight of ideas at times) Conclusion/Plan - Lab Results Lab results reviewed: Yes Fish Bones: 04/21/22 21:04 04/21/22 21:04 - EKG Results EKG Interpreted Independently: Yes - Other Other Results/Comments: Assessment/Plan: Intentional medication overdose -Strattera, Risperidone and Wellbutrin -Pt is currently asymptomatic, awake and alert -DENIES SI, reports she took the medications to self-treat panic attack while [facility] -ER provider has reviewed with poison control - rec 24 hr patient monitor, per ER provider patient monitor for OD in ICU -Diet as tolerated -Suicide precautions for now -SW consult -IV NS hydration Hx anxiety, panic attacks, ADHD -Lorazepam 1 mg q6h PRN - discussed med/frequency with patient -Hold stimulants at this time given OD Full code DVT ppx: Lovenox sc
[2022-04-21 23:15] LABS: BILIRUBIN,URINE NEGATIVE (NEGATIVE); GLUCOSE, URINE (UA) NEGATIVE (NEGATIVE); KETONES,URINE (UA) 40 mg/dL (NEGATIVE); LEUKOCYTE ESTERASE, URINE NEGATIVE (NEGATIVE); NITRITE,URINE NEGATIVE (NEGATIVE); OCCULT BLOOD,URINE MODERATE (NEGATIVE); PROTEIN,URINE NEGATIVE (NEGATIVE); UROBILINOGEN,URINE 0.2 (NORMAL) E.U./dL (NORMAL)
[2022-04-21 23:24] LABS: BACTERIA,URINE None Seen /HPF (None Seen); CLARITY,URINE CLEAR (CLEAR); SQUAMOUS EPITHELIAL CELL,UR RARE Squamous (<= Few); WBC,URINE 0-3 /HPF (0-5)
[2022-04-21 23:26] LABS: AMPHETAMINE SCREEN,URINE NEGATIVE (NEGATIVE); BARBITURATE SCREEN,UR NEGATIVE (NEGATIVE); BENZODIAZEPINES SCREEN, URINE NEGATIVE (NEGATIVE); COCAINE SCREEN URINE NEGATIVE (NEGATIVE); METHADONE SCREEN, URINE NEGATIVE (NEGATIVE); METHAMPHETAMINES SCREEN, URINE NEGATIVE (NEGATIVE); OPIATE SCREEN, URINE NEGATIVE (NEGATIVE); OXYCODONE SCREEN, URINE NEGATIVE (NEGATIVE); PROPOXYPHENE SCREEN, URINE NEGATIVE (NEGATIVE); THC CANNABINOID SCREEN, URINE NEGATIVE (NEGATIVE); TRICYCLIC ANTIDEPRESSANT,URINE NEGATIVE (NEGATIVE)
[2022-04-21] MEDS ORDERED: SODIUM CHLORIDE FLUSH 0.9% 10 ML SYRINGE IVP PRN (23:28)
[2022-04-21] MEDS ORDERED: ACETAMINOPHEN 325 MG TABLET PO PRN (23:28)
[2022-04-21] MEDS ORDERED: ONDANSETRON 4 MG/2 ML VIAL IVP PRN (23:28)
[2022-04-22] MEDS: SODIUM CHLORIDE 0.9% 1,000 ML IV SCH ×2 (00:51→08:10)
[2022-04-22] MEDS: SODIUM CHLORIDE FLUSH 0.9% 10 ML SYRINGE IVP SCH ×4 (00:52→20:33)
[2022-04-22 06:24] LABS: BASOPHILS % (AUTO) 0.4 %; EOSINOPHILS # (AUTO) 0.2 10^3/uL (0.0-0.7); EOSINOPHILS % (AUTO) 2.9 %; HCT - HEMATOCRIT 34.7 % (37.0-47.0); HGB - HEMOGLOBIN 11.3 g/dL (12.0-16.0); LYMPHOCYTES # (AUTO) 1.7 10^3/uL (1.5-3.5); LYMPHOCYTES % (AUTO) 23.9 %; MEAN CORPUSCULAR HEMOGLOBIN 27.2 pg (27.0-31.0); MEAN CORPUSCULAR HGB CONC 32.6 g/dL (32.0-36.0); MEAN CORPUSCULAR VOLUME 83.6 fL (81.0-99.0); MEAN PLATELET VOLUME 9.7 fL (7.9-10.8); MONOCYTES # (AUTO) 1.2 10^3/uL (0.0-1.0); MONOCYTES % (AUTO) 16.7 %; NEUTROPHILS # (AUTO) 3.8 10^3/uL (1.5-6.6); NEUTROPHILS % (AUTO) 55.8 %; PLT - PLATELET COUNT 394 10^3/uL (130-450); RED BLOOD COUNT 4.15 10^6/uL (4.20-5.40); RED CELL DISTRIBUTION WIDTH 14.6 % (12.0-15.0); WHITE BLOOD COUNT 6.9 x10^3/uL (4.8-10.8)
[2022-04-22 06:46] LABS: CALCIUM 8.1 mg/dL (8.5-10.3); CREATININE 0.5 mg/dL (0.4-1.0); POTASSIUM 3.5 mmol/L (3.5-5.0)
[2022-04-22] MEDS ORDERED: POTASSIUM CHLORIDE 20 MEQ TABLET PO ONE ×2 (08:00→10:07)
[2022-04-22] MEDS: ethyl alcohoL 62% SWAB AMPULE NAS SCH ×2 (08:14→20:33)
[2022-04-22] MEDS: ENOXAPARIN 40 MG/0.4 ML SYRINGE SUBQ SCH (08:15)
[2022-04-22] MEDS: LORazepam 1 MG TABLET PO PRN ×2 (08:37→20:33)
[2022-04-22] MEDS: POTASSIUM CHLORIDE 20 MEQ/15 ML UDC PO SCH (10:06)
--- NOTE | 2022-04-22 11:03 | PHARMACY PROGRESS NOTE ---
- Best Possible Medication History Admit Date and Time: 04/21/22 1048 Processed by: Pharmacy Medication History completed: Yes Patient Interview: Completed Secondary Source(s): Insurance records (Pt able to recall meds well. States that Hydroxyzine does not work. She wants Xanax. She states she "did not get Naltrexone this last time around (from [facility]?), but need that." States Trazodone doesn't work she d/c'd it. Fills meds at [facility]. Urgent ones are to be sent to [facility] in [facility]) As the person ultimately responsible for medication therapy, providers are able to order a medication from an existing home medication list in [facility] via the "Reconcile Routine" prior to Confirmation of that medication by system support analyst. Such practice is discouraged except when the physician, in their clinical judgment, deems that a medical need exists for a medication without regard to previous use.
[2022-04-22] MEDS: DIVALPROEX ER 250 MG TABLET PO SCH (11:34)
[2022-04-22] MEDS ORDERED: CALCIUM CARB (OYSTER SHELL) 500 MG TABLET PO ONE (12:00)
--- NOTE | 2022-04-22 12:18 | PROVIDER PROGRESS NOTE ---
Subjective - Subjective Subjective: No complaints, has no pain, he is moving her bowels. She does ask for her antianxiety med. Objective - Vital Signs/Intake & Output Vital Signs: Vital Signs Temp Pulse Resp BP Pulse Ox 04/22/22 12:00 82 23 90/69 97 04/22/22 11:00 82 22 90/66 96 04/22/22 10:00 87 16 106/79 99 04/22/22 09:00 86 22 95/70 96 04/22/22 08:34 36.6 C 91 16 105/73 98 Intake & Output: Intake & Output 04/19/22 04/20/22 04/21/22 04/22/22 23:59 23:59 23:59 23:59 Intake Total 1050 1800 Output Total 0 Balance 1050 1800 - Objective General Appearance: positive: No acute distress, Alert Eyes Bilateral: positive: Normal inspection, EOMI ENT: positive: No signs of dehydration Neck: positive: Nml inspection, No JVD Respiratory: positive: No respiratory distress, Breath sounds nml Cardiovascular: positive: Regular rate & rhythm, No murmur Abdomen: positive: Non-tender, Nml bowel sounds, No distention Skin: positive: Warm, Dry Extremities: positive: Non-tender, No pedal edema Neurologic/Psychiatric: positive: Oriented x3, Motor nml - Lab Results Fish Bones: 04/22/22 05:49 04/22/22 13:04 Other Labs: Lab Results x24hrs 04/22/22 04/22/22 04/22/22 Range/Units 05:49 05:49 02:42 WBC 6.9 (4.8-10.8) x10^3/uL RBC 4.15 L (4.20-5.40) 10^6/uL Hgb 11.3 L (12.0-16.0) g/dL Hct 34.7 L (37.0-47.0) % MCV 83.6 (81.0-99.0) fL MCH 27.2 (27.0-31.0) pg MCHC 32.6 (32.0-36.0) g/dL RDW 14.6 (12.0-15.0) % Plt Count 394 (130-450) 10^3/uL MPV 9.7 (7.9-10.8) fL Neut # (Auto) 3.8 (1.5-6.6) 10^3/uL Lymph # (Auto) 1.7 (1.5-3.5) 10^3/uL [place] # (Auto) 1.2 H (0.0-1.0) 10^3/uL Eos # (Auto) 0.2 (0.0-0.7) 10^3/uL Baso # (Auto) 0.0 (0.0-0.1) 10^3/uL Absolute Nucleated RBC 0.00 x10^3/uL Nucleated RBC % 0.0 /100WBC Sodium 137 (135-145) mmol/L Potassium 3.5 (3.5-5.0) mmol/L Chloride 108 (101-111) mmol/L Carbon Dioxide 22 (21-32) mmol/L Anion Gap 7.0 (6-13) BUN 14 (6-20) mg/dL Creatinine 0.5 (0.4-1.0) mg/dL Estimated GFR (MDRD) 131 (>89) Glucose 99 (70-100) mg/dL Calcium 8.1 L (8.5-10.3) mg/dL Phosphorus (2.5-4.6) mg/dL Magnesium (1.7-2.8) mg/dL Total Bilirubin (0.2-1.0) mg/dL AST (10-42) IU/L ALT (10-60) IU/L Alkaline Phosphatase (42-121) IU/L Total Protein (6.7-8.2) g/dL Albumin (3.2-5.5) g/dL Globulin (2.1-4.2) g/dL Albumin/Globulin Ratio (1.0-2.2) Lipase (22-51) U/L TSH (0.34-5.60) uIU/mL Urine Color Urine Clarity (CLEAR) Urine pH (5.0-7.5) PH Ur Specific [place] (1.002-1.030) Urine Protein (NEGATIVE) mg/dL Urine Glucose (UA) (NEGATIVE) mg/dL Urine Ketones (NEGATIVE) mg/dL Urine Occult Blood (NEGATIVE) Urine Nitrite (NEGATIVE) Urine Bilirubin (NEGATIVE) Urine Urobilinogen (NORMAL) E.U./dL Ur Leukocyte Esterase (NEGATIVE) Urine RBC (0-5) /HPF Urine WBC (0-5) /HPF Ur Squamous Epith Cells (<= Few) Urine Bacteria (None Seen) /HPF Ur Microscopic Review Urine Culture Comments Nasal Screen MRSA (PCR) POSITIVE A* (NEGATIVE) Salicylates mg/dL Urine Opiates Screen (NEGATIVE) Ur Oxycodone Screen (NEGATIVE) Urine Methadone Screen (NEGATIVE) Ur Propoxyphene Screen (NEGATIVE) Acetaminophen (10-30) ug/mL Ur Barbiturates Screen (NEGATIVE) Ur Tricyclics Screen (NEGATIVE) Ur Phencyclidine Scrn (NEGATIVE) Ur Amphetamine Screen (NEGATIVE) U Methamphetamines Scrn (NEGATIVE) U Benzodiazepines Scrn (NEGATIVE) Urine Cocaine Screen (NEGATIVE) U Cannabinoids Screen (NEGATIVE) Ethyl Alcohol mg/dL 04/21/22 04/21/22 04/21/22 Range/Units 22:55 21:04 21:04 WBC (4.8-10.8) x10^3/uL RBC (4.20-5.40) 10^6/uL Hgb (12.0-16.0) g/dL Hct (37.0-47.0) % MCV (81.0-99.0) fL MCH (27.0-31.0) pg MCHC (32.0-36.0) g/dL RDW (12.0-15.0) % Plt Count (130-450) 10^3/uL MPV (7.9-10.8) fL Neut # (Auto) (1.5-6.6) 10^3/uL Lymph # (Auto) (1.5-3.5) 10^3/uL [place] # (Auto) (0.0-1.0) 10^3/uL Eos # (Auto) (0.0-0.7) 10^3/uL Baso # (Auto) (0.0-0.1) 10^3/uL Absolute Nucleated RBC x10^3/uL Nucleated RBC % /100WBC Sodium (135-145) mmol/L Potassium (3.5-5.0) mmol/L Chloride (101-111) mmol/L Carbon Dioxide (21-32) mmol/L Anion Gap (6-13) BUN (6-20) mg/dL Creatinine (0.4-1.0) mg/dL Estimated GFR (MDRD) (>89) Glucose (70-100) mg/dL Calcium (8.5-10.3) mg/dL Phosphorus 3.2 (2.5-4.6) mg/dL Magnesium 2.9 H (1.7-2.8) mg/dL Total Bilirubin (0.2-1.0) mg/dL AST (10-42) IU/L ALT (10-60) IU/L Alkaline Phosphatase (42-121) IU/L Total Protein (6.7-8.2) g/dL Albumin (3.2-5.5) g/dL Globulin (2.1-4.2) g/dL Albumin/Globulin Ratio (1.0-2.2) Lipase (22-51) U/L TSH 2.73 (0.34-5.60) uIU/mL Urine Color YELLOW Urine Clarity CLEAR (CLEAR) Urine pH 6.0 (5.0-7.5) PH Ur Specific [place] 1.015 (1.002-1.030) Urine Protein NEGATIVE (NEGATIVE) mg/dL Urine Glucose (UA) NEGATIVE (NEGATIVE) mg/dL Urine Ketones 40 H (NEGATIVE) mg/dL Urine Occult Blood MODERATE H (NEGATIVE) Urine Nitrite NEGATIVE (NEGATIVE) Urine Bilirubin NEGATIVE (NEGATIVE) Urine Urobilinogen 0.2 (NORMAL) (NORMAL) E.U./dL Ur Leukocyte Esterase NEGATIVE (NEGATIVE) Urine RBC 11-25 H (0-5) /HPF Urine WBC 0-3 (0-5) /HPF Ur Squamous Epith Cells RARE Squamous (<= Few) Urine Bacteria None Seen (None Seen) /HPF Ur Microscopic Review INDICATED Urine Culture Comments NOT INDICATED Nasal Screen MRSA (PCR) (NEGATIVE) Salicylates mg/dL Urine Opiates Screen NEGATIVE (NEGATIVE) Ur Oxycodone Screen NEGATIVE (NEGATIVE) Urine Methadone Screen NEGATIVE (NEGATIVE) Ur Propoxyphene Screen NEGATIVE (NEGATIVE) Acetaminophen (10-30) ug/mL Ur Barbiturates Screen NEGATIVE (NEGATIVE) Ur Tricyclics Screen NEGATIVE (NEGATIVE) Ur Phencyclidine Scrn NEGATIVE (NEGATIVE) Ur Amphetamine Screen NEGATIVE (NEGATIVE) U Methamphetamines Scrn NEGATIVE (NEGATIVE) U Benzodiazepines Scrn NEGATIVE (NEGATIVE) Urine Cocaine Screen NEGATIVE (NEGATIVE) U Cannabinoids Screen NEGATIVE (NEGATIVE) Ethyl Alcohol mg/dL 03/08/23 03/08/23 Range/Units 21:04 21:04 WBC 10.5 (4.8-10.8) x10^3/uL RBC 4.81 (4.20-5.40) 10^6/uL Hgb 13.1 (12.0-16.0) g/dL Hct 40.3 (37.0-47.0) % MCV 83.8 (81.0-99.0) fL MCH 27.2 (27.0-31.0) pg MCHC 32.5 (32.0-36.0) g/dL RDW 14.6 (12.0-15.0) % Plt Count 443 (130-450) 10^3/uL MPV 9.1 (7.9-10.8) fL Neut # (Auto) 8.0 H (1.5-6.6) 10^3/uL Lymph # (Auto) 1.4 L (1.5-3.5) 10^3/uL [place] # (Auto) 1.0 (0.0-1.0) 10^3/uL Eos # (Auto) 0.0 (0.0-0.7) 10^3/uL Baso # (Auto) 0.0 (0.0-0.1) 10^3/uL Absolute Nucleated RBC 0.00 x10^3/uL Nucleated RBC % 0.0 /100WBC Sodium 140 (135-145) mmol/L Potassium 3.7 (3.5-5.0) mmol/L Chloride 104 (101-111) mmol/L Carbon Dioxide 25 (21-32) mmol/L Anion Gap 11.0 (6-13) BUN 18 (6-20) mg/dL Creatinine 0.7 (0.4-1.0) mg/dL Estimated GFR (MDRD) 89 (>89) Glucose 95 (70-100) mg/dL Calcium 9.5 (8.5-10.3) mg/dL Phosphorus (2.5-4.6) mg/dL Magnesium (1.7-2.8) mg/dL Total Bilirubin 0.8 (0.2-1.0) mg/dL AST 31 (10-42) IU/L ALT 20 (10-60) IU/L Alkaline Phosphatase 80 (42-121) IU/L Total Protein 8.2 (6.7-8.2) g/dL Albumin 4.5 (3.2-5.5) g/dL Globulin 3.7 (2.1-4.2) g/dL Albumin/Globulin Ratio 1.2 (1.0-2.2) Lipase 27 (22-51) U/L TSH (0.34-5.60) uIU/mL Urine Color Urine Clarity (CLEAR) Urine pH (5.0-7.5) PH Ur Specific [place] (1.002-1.030) Urine Protein (NEGATIVE) mg/dL Urine Glucose (UA) (NEGATIVE) mg/dL Urine Ketones (NEGATIVE) mg/dL Urine Occult Blood (NEGATIVE) Urine Nitrite (NEGATIVE) Urine Bilirubin (NEGATIVE) Urine Urobilinogen (NORMAL) E.U./dL Ur Leukocyte Esterase (NEGATIVE) Urine RBC (0-5) /HPF Urine WBC (0-5) /HPF Ur Squamous Epith Cells (<= Few) Urine Bacteria (None Seen) /HPF Ur Microscopic Review Urine Culture Comments Nasal Screen MRSA (PCR) (NEGATIVE) Salicylates < 6.0 mg/dL Urine Opiates Screen (NEGATIVE) Ur Oxycodone Screen (NEGATIVE) Urine Methadone Screen (NEGATIVE) Ur Propoxyphene Screen (NEGATIVE) Acetaminophen < 10 L (10-30) ug/mL Ur Barbiturates Screen (NEGATIVE) Ur Tricyclics Screen (NEGATIVE) Ur Phencyclidine Scrn (NEGATIVE) Ur Amphetamine Screen (NEGATIVE) U Methamphetamines Scrn (NEGATIVE) U Benzodiazepines Scrn (NEGATIVE) Urine Cocaine Screen (NEGATIVE) U Cannabinoids Screen (NEGATIVE) Ethyl Alcohol < 5.0 mg/dL Assessment/Plan - Problem List (1) Intentional drug overdose Impression: She took many tablets each of Strattera, Risperidone and Wellbutrin. She denied SI, reported she took the medications to self-treat panic attack while [facility] ER provider reviewed her case with poison control and poison control recommended 24 hr ekg monitor for OD in ICU. This morning Poison control called our FELLING MACHINE OPERATOR Hever and requested an update which Hever gave. Poison control recommended keeping her K greater than 4, calcium greater than 9 and magnesium greater than 2. EKG was repeated today (I interpreted the EKG)>> Normal sinus rhythm, rate 85, prolonged QT interval with QTc 573 msec. Since her EKG from yesterday, this is a much longer QTc interval (it was 487 msec yesterday) Plan: Remain in ICU on telemetry for at least the advised 24 hours, possibly longer if has a prolonged QT or significant arrhythmias, Cont suicide precautions until OKd to stop after SW eval of pt 2) Prolonged QT interval This prolonged QTc gives her a very high risk of ventricular arrhythmias which could be lethal This was explained to the patient. I contacted poison control after today's EKG was done (at [phone] and spoke to Sho), and updated them on today's EKG findings of this prolonged QT and her electrolytes. Plan: We will follow her potassium, calcium, magnesium 3 times a day, ad advised by poison control. It would be better if the patient was tachycardic which protects her from [place], poison control said, but we have no way to do that. If she gets a prolonged QRS, could give Calcium carbonate, per poison control Continue telemetry monitoring and can repeat the EKG if needed, recommended by poison control. 3) Hypocalcemia Labs were all reviewed. Goal is a calcium of greater than 9, in this patient with a normal albumin Plan: We will give calcium replacement We will follow labs 3 times a day as recommended today by poison control. Will follow Alb occasionally. 4) Anxiety She has had panic attacks. Plan: Cont Lorazepam 1 mg q6h PRN Hold stimulants at this time given her OD of stimulants 5) Hx ADHD She was requesting to get her ADHD medication. All her stimulants are currently on hold because of having overdosed on the Strattera Plan: Will resume meds when okayed by poison control
[2022-04-22 13:17] LABS: CALCIUM 8.3 mg/dL (8.5-10.3); MAGNESIUM 2.7 mg/dL (1.7-2.8); POTASSIUM 3.9 mmol/L (3.5-5.0)
[2022-04-22 16:56] LABS: CALCIUM, IONIZED 1.06 mmol/L (1.15-1.33); VBG PH 7.427 (7.31-7.41)
[2022-04-22] MEDS: CALCIUM CARB (OYSTER SHELL) 500 MG TABLET PO SCH ×2 (17:53→20:33)
[2022-04-22 21:02] LABS: CALCIUM, IONIZED 1.09 mmol/L (1.15-1.33); VBG PH 7.445 (7.31-7.41)
[2022-04-22 21:08] LABS: CALCIUM 8.5 mg/dL (8.5-10.3); MAGNESIUM 2.3 mg/dL (1.7-2.8); POTASSIUM 4.1 mmol/L (3.5-5.0)
[2022-04-23] MEDS: LORazepam 1 MG TABLET PO PRN (03:49)
[2022-04-23 04:11] LABS: CALCIUM, IONIZED 1.08 mmol/L (1.15-1.33); VBG PH 7.469 (7.31-7.41)
[2022-04-23 04:18] LABS: ALBUMIN 3.3 g/dL (3.2-5.5); CALCIUM 9.1 mg/dL (8.5-10.3); POTASSIUM 4.4 mmol/L (3.5-5.0)
[2022-04-23] MEDS: CALCIUM CARBONATE CHEW 500 MG TABLET PO SCH ×2 (04:26→08:10)
[2022-04-23] MEDS: ENOXAPARIN 40 MG/0.4 ML SYRINGE SUBQ SCH (08:09)
[2022-04-23] MEDS: ethyl alcohoL 62% SWAB AMPULE NAS SCH (08:10)
[2022-04-23] MEDS: POTASSIUM CHLORIDE 20 MEQ/15 ML UDC PO SCH (08:10)
[2022-04-23] MEDS: SODIUM CHLORIDE FLUSH 0.9% 10 ML SYRINGE IVP SCH (08:15)
[2022-04-23] MEDS: DIVALPROEX ER 250 MG TABLET PO SCH (08:20)
--- NOTE | 2022-04-23 09:30 | Discharge Plan ---
Discharge Plan Problem Reviewed?: Yes Disposition: Home, Self Care Condition: Stable Prescriptions: LORazepam [Ativan] 1 mg PO Q12H PRN #3 tab PRN Reason: Anxiety Diet: Regular Activity Restrictions: Activity as Tolerated Shower Restrictions: No Driving Restrictions: Yes (If you are inebriated or oversedated, no driving a car) Instruction Topics: ED Overdose Intentional Health Concerns: You were hospitalized after taking an intentional overdose of 3 of your medications. This was very dangerous because it affected your heart's electrical conduction system which could have led to a very bad heart rhythm that could make you blackout or even . According to our monitoring of your heart and your blood tests, those medications are now metabolized out of your body and you are being discharged home today. After speaking to the Poison Control Center of [facility], you may resume taking your usual doses of all your medications now. DO NOT OVERDOSE ON THEM. Since you said Hydroxyzine "does not work", I have prescribed a few tablets of Lorazepam to use if needed for anxiety. If you need your Hydroxyzine changed to Lorazepam overall, you need to get this done by your usual provider at [facility], or wherever you will go for mental health follow-up. Also, since you said you wanted Adderall, but you are already on Strattera, you need to discuss this type of change with your usual provider at [facility] also. I am not prescribing any changes in those medications, since I am not your follow-up medical provider. Plan of Treatment: As above. Care Goals: Improvement in symptoms and stabilization are the goals. Assessment: This instruction sheet is provided for you as a reminder. Additional Instructions or Follow Up instructions: If you have new or worsening symptoms, call your Primary medical care provider, or your mental health providers at [facility], Dr Angelica Johnson, or Therapist Angelica Johnson, for advice, or come to the ER. No Smoking: If you smoke, Please STOP! Call for help.
--- NOTE | 2022-04-23 11:40 | DISCHARGE SUMMARY ---
Discharge Summary Admit Date: 04/21/22 Discharge Date: 04/23/22 Discharging Provider: Dr Swati Mcadams Primary Care Provider: Dr Angelica Johnson, Therapist Angelica Johnson Condition at Discharge: Stable Discharge Disposition: 01 Home, Self Care - HPI History of Present Illness: Ms Wu is a 47 yo F with hx of Depression, ADHD and prior suicidal ideation. Presents approx 3-3.5 hours after ingesting multiple medications for panic attack. Denies SI/SA. Recently discharged from [facility]. At time of my evaluation pt is requesting Adderall, states that she has an appointment with her therapist at [facility] in [place] tomorrow, for a prescription. We discussed that she will not get adderall tonight due to the strattera that she took. She is still feeling "anxious" and is exhibiting agitated behavior, but she feels better since receiving IV Ativan in ER. She denies headache, dizziness, vision problems, cp, sob, cough, fevers, chills, abd pain, n/v, diarrhea. Medications ingested (per ER provider review w patient med bottles): -Strattera 40 mg that is prescribed 1 tab per day. This was filled 5 days ago and she is missing 24 tabs. -Risperdal 1 mg tabs that were also prescribed 5 days ago and she is missing 14 tabs. -Wellbutrin 100 mg sustained-release twice a day was prescribed 5 days ago and she is missing 15 tabs. The ED provider reached out to Poison Control of [facility] and at their recommendation, the patient is being aplaced in Observation into the ICU for telemetry monitoring and lab monitoring. - HOSPITAL COURSE Hospital Course: (1) Intentional drug overdose She took many tablets each of Strattera, Risperidone and Wellbutrin. She denied SI, reported she took the medications to self-treat a long panic attack while [facility] ER provider reviewed her case with Poison Control who recommended 24 hr telemetry monitoring in the ICU for OD of these meds. These 3 meds were put on hold. Her agitation improved the next day. We monitored her labs and her QTc on EKG. She was seen by our Director Of Workforce Development and felt to not be suicidal. She was counseled not to overdose on meds going forward. 2) Prolonged QT interval At admission her EKG showed a QTc of 487 msec. The following day her EKG showed a QTc of 549 msec. This prolonged QTc gave her a very high risk of ventricular arrhythmias, specifically a risk of Torsades, which could be lethal. This was explained to the patient, since she wanted to leave that day (to attend an appointment with her psychotherapist, Tiffani Johnson). She did stay and was monitored on telemetry and she had no arrhythmias. On the next day, her day of discharge, her EKG showed a normal QTc of 478 msec and she was able to be discharged. 3) Hypocalcemia From Poison Control, goal was a calcium of greater than 9 (in this patient with a normal albumin), potassium greater than 4, and magnesium level greater than 2. She continued to have normal potassium and magnesium levels. She needed calcium supplementation for Ca of 8.1. On the day of discharge her calcium level was 9.1. 4) Anxiety She gets panic attacks. After this overdose, she had agitated behavior which then improved by the following afternoon (approximately 18 hours after ingestion). We did allow her to get Lorazepam 1 mg q6h PRN. We held all s timulants at admission, given her OD of stimulants. The patient reported that being on Hydroxyzine does not control her anxiety, and she requested to be switched back to Lorazepam. She was prescribed 3 tablets of Lorazepam to take for anxiety after discharge, and was advised to get a long-term prescription after having a follow-up appointment soon with her mental health provider Dr. Angelica Johnson, at [facility]. 5) Hx ADHD She was requesting to get her ADHD medication. But all her stimulants were on hold because of having overdosed on the Strattera. She stated that she wants to go back to Adderall. She was advised to ask for a change of medication and get a prescription, after having a follow-up appointment with her mental health provider Dr. Angelica Johnson, at [facility]. On the day of discharge, I contacted Poison Control and reviewed her labs and latest EKG QT interval. Recommendations from Poison control were that the patient may now start back on all her usual doses of Strattera, Risperidone and Wellbutrin. - ALLERGIES Allergies/Adverse Reactions: Allergies Allergy/AdvReac Type Severity Reaction Status Date / Time No Known Drug Allergies Allergy Verified 03/08/22 08:32 - MEDICATIONS Home Medications: Ambulatory Orders Medication Instructions Recorded Confirmed Risperidone [Risperdal] 1 mg PO DAILY 04/21/22 04/22/22 buPROPion [Wellbutrin Sr] 100 mg PO BID 04/21/22 04/21/22 Atomoxetine HCl [Strattera] 40 mg PO DAILY 04/22/22 04/22/22 Divalproex ER [Depakote ER] 250 mg PO DAILY 04/22/22 04/22/22 busPIRone [Buspar] 5 mg PO BID 04/22/22 04/22/22 hydrOXYzine HCL [Hydroxyzine HCl] 50 mg PO QID 04/22/22 04/22/22 LORazepam [Ativan] 1 mg PO Q12H PRN #3 tab 04/23/22 - PHYSICAL EXAM AT DISCHARGE General Appearance: positive: No acute distress, Alert Eyes Bilateral: positive: Normal inspection, EOMI Neck: positive: Nml inspection, No JVD Respiratory: positive: No respiratory distress, Breath sounds nml Cardiovascular: positive: Regular rate & rhythm, No murmur Abdomen: positive: Non-tender, Nml bowel sounds, No distention Skin: positive: Warm, Dry Extremities: positive: Non-tender, No pedal edema Neurologic/Psychiatric: positive: Oriented x3, Motor nml, Mood/affect nml - LABS Result Diagrams: 04/22/22 05:49 04/23/22 04:00 - FOLLOW UP Follow Up: See psychotherapist Tiffani Johnson at [facility] Have a follow-up appointment with mental health provider Dr. Angelica Johnson at [facility] - TIME SPENT Time Spent in Discharge (Minutes): 45
[2022-04-23 12:59] VITALS: BP 124/90
== END 2022-04-23 13:24 | disposition home or self-care (01) ==
LOC: EDUNIT# → ED 20:54 → ICU 23:28
PROVIDERS: ADMIT Student in an Organized Health Care Education/Training Program; ATTEND Internal Medicine
DX: T43.211A Poisoning by selective serotonin and norepinephrine reuptake inhibitors, accidental (unintentional), initial encounter (principal); T43.591A Poisoning by other antipsychotics and neuroleptics, accidental (unintentional), initial encounter; T43.291A Poisoning by other antidepressants, accidental (unintentional), initial encounter; F41.9 Anxiety disorder, unspecified; R94.31 Abnormal electrocardiogram [ECG] [EKG]; E83.51 Hypocalcemia; F43.10 Post-traumatic stress disorder, unspecified; F32.A Depression, unspecified; F90.9 Attention-deficit hyperactivity disorder, unspecified type; F17.200 Nicotine dependence, unspecified, uncomplicated
CPT/HCPCS: 36415; 80048; 80053; 80306; 80307; 80320; 80329; 81001; 82040; 82310; 82330; 83690; 83735; 84100; 84132; 84295; 84443; 85025; 87150; 93005; 96365; 96372; 96375; 99285; A9270; G0378; J1650; J2060; J8499; 81003; 87086

== ENCOUNTER 2022-04-25 18:26 | Outpatient (CLI) | payer MEDICAID | END 2022-04-25 18:27 | disposition critical access hospital (66) | LOC: EMS 18:26 | DX: R45.89 Other symptoms and signs involving emotional state (principal) | CPT/HCPCS: A0425; A0427; A0999 ==

== ENCOUNTER 2022-04-25 18:42 | Emergency (ER) | payer MEDICAID ==
--- NOTE | 2022-04-25 18:51 | ED Physician Documentation ---
History of Present Illness - Stated complaint Stated Complaint: OD? - History obtained from History obtained from: Patient, EMS - Additonal information Additional information: 47-year-old woman presents by ambulance concerned that she may have overdosed. Earlier in the day she took extra doses of risperidone and bupropion. She took 1 extra dose of her wrist per down and took a total of 6 bupropion with the last dose being at noon. No SI or HI, she does feel like her meds are working well enough. 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, Breast implants Neuro: Other - Present Medications Home Medications: Ambulatory Orders Medication Instructions Recorded Confirmed Risperidone [Risperdal] 1 mg PO DAILY 04/21/22 04/22/22 buPROPion [Wellbutrin Sr] 100 mg PO BID 04/21/22 04/21/22 Atomoxetine HCl [Strattera] 40 mg PO DAILY 04/22/22 04/22/22 Divalproex ER [Depakote ER] 250 mg PO DAILY 04/22/22 04/22/22 busPIRone [Buspar] 5 mg PO BID 04/22/22 04/22/22 hydrOXYzine HCL [Hydroxyzine HCl] 50 mg PO QID 04/22/22 04/22/22 LORazepam [Ativan] 1 mg PO Q12H PRN #3 tab 04/23/22 - Allergies Allergies/Adverse Reactions: Allergies Allergy/AdvReac Type Severity Reaction Status Date / Time No Known Drug Allergies Allergy Verified 03/08/22 08:32 - Social History Does the pt smoke?: Yes Smoking Status: Current every day smoker Does the pt drink ETOH?: Yes Does the pt have substance abuse?: No - Immunizations Immunizations are current?: Yes - POLST Patient has POLST: No POLST Status: Full Code PD ED PE NORMAL - Vitals Vital signs reviewed: Yes - General General: Alert and oriented X 3, No acute distress - HEENT HEENT: PERRL, EOMI - Neck Neck: Supple, no meningeal sign, No bony TTP - Cardiac Cardiac: RRR, No murmur - Respiratory Respiratory: No respiratory distress, Clear bilaterally - Abdomen Abdomen: Normal bowel sounds, Soft, Non tender - Back Back: No CVA TTP, No spinal TTP - Derm Derm: Normal color, Warm and dry - Extremities Extremities: No edema, No calf tenderness / cord - Neuro Neuro: Alert and oriented X 3, Normal speech - Psych Psych: Normal mood, Normal affect Results - Vitals Vitals: Vital Signs - 24 hr 04/25/22 18:50 Temperature 36.8 C Heart Rate 98 Respiratory 20 Rate Blood Pressure 170/119 H O2 Saturation 100 Oxygen O2 Source Room air - EKG (time done) 1943 EKG releavant findings:: EKG personally interpreted by author of this note. Relevant findings are: Rate: Rate (enter#) (85) Rhythm: NSR, LAE Drift: Normal Intervals: Normal AL QRS: Normal Ischemia: Normal ST segments - Labs Labs: Laboratory Tests 04/25/22 04/25/22 04/25/22 14:21 14:21 18:57 WBC 17.2 H RBC 4.85 Hgb 13.2 Hct 41.1 MCV 84.7 MCH 27.2 MCHC 32.1 RDW 14.7 Plt Count 506 H MPV 9.3 Neut # (Auto) 14.7 H Lymph # (Auto) 1.2 L [place] # (Auto) 1.0 Eos # (Auto) 0.3 Baso # (Auto) 0.1 Absolute Nucleated RBC 0.00 Nucleated RBC % 0.0 Sodium Potassium Chloride Carbon Dioxide Anion Gap BUN Creatinine Estimated GFR (MDRD) Glucose Calcium Total Bilirubin AST ALT Alkaline Phosphatase Total Protein Albumin Globulin Albumin/Globulin Ratio Lipase TSH Urine Color YELLOW Urine Clarity CLEAR Urine pH 5.5 Ur Specific [place] >=1.030 H Urine Protein NEGATIVE Urine Glucose (UA) NEGATIVE Urine Ketones NEGATIVE Urine Occult Blood MODERATE H Urine Nitrite NEGATIVE Urine Bilirubin NEGATIVE Urine Urobilinogen 0.2 (NORMAL) Ur Leukocyte Esterase NEGATIVE Urine RBC 6-10 H Urine WBC 0-3 Ur Squamous Epith Cells RARE Squamous Urine Bacteria Rare Ur Microscopic Review INDICATED Urine Culture Comments NOT INDICATED Urine HCG, Qual NEGATIVE Salicylates Urine Opiates Screen NEGATIVE Ur Oxycodone Screen NEGATIVE Urine Methadone Screen NEGATIVE Ur Propoxyphene Screen NEGATIVE Acetaminophen Ur Barbiturates Screen NEGATIVE Ur Tricyclics Screen NEGATIVE Ur Phencyclidine Scrn NEGATIVE Ur Amphetamine Screen NEGATIVE U Methamphetamines Scrn NEGATIVE U Benzodiazepines Scrn POSITIVE H Urine Cocaine Screen NEGATIVE U Cannabinoids Screen NEGATIVE Ethyl Alcohol SARS-CoV-2 (PCR) NOT DETECTED 04/25/22 04/25/22 18:57 18:57 WBC RBC Hgb Hct MCV MCH MCHC RDW Plt Count MPV Neut # (Auto) Lymph # (Auto) [place] # (Auto) Eos # (Auto) Baso # (Auto) Absolute Nucleated RBC Nucleated RBC % Sodium 137 Potassium 3.6 Chloride 105 Carbon Dioxide 24 Anion Gap 8.0 BUN 17 Creatinine 0.7 Estimated GFR (MDRD) 89 Glucose 98 Calcium 9.1 Total Bilirubin 0.3 AST 18 ALT 17 Alkaline Phosphatase 79 Total Protein 7.9 Albumin 4.4 Globulin 3.5 Albumin/Globulin Ratio 1.3 Lipase 28 TSH 2.47 Urine Color Urine Clarity Urine pH Ur Specific [place] Urine Protein Urine Glucose (UA) Urine Ketones Urine Occult Blood Urine Nitrite Urine Bilirubin Urine Urobilinogen Ur Leukocyte Esterase Urine RBC Urine WBC Ur Squamous Epith Cells Urine Bacteria Ur Microscopic Review Urine Culture Comments Urine HCG, Qual Salicylates < 6.0 Urine Opiates Screen Ur Oxycodone Screen Urine Methadone Screen Ur Propoxyphene Screen Acetaminophen < 10 L Ur Barbiturates Screen Ur Tricyclics Screen Ur Phencyclidine Scrn Ur Amphetamine Screen U Methamphetamines Scrn U Benzodiazepines Scrn Urine Cocaine Screen U Cannabinoids Screen Ethyl Alcohol < 5.0 SARS-CoV-2 (PCR) PD Medical Decision Making - ED course ED course: 47-year-old woman presents after an overdose without SI or HI. She would like to talk to someone and consider hospitalization. Her medical work-up is unremarkable. CBC showing nonspecific leukocytosis. Chemistry panel normal. TSH normal. Urinalysis with some blood but otherwise negative. Urine tox screen positive for benzodiazepines. COVID test negative. She is awaiting telepsych consultation at shift change and care to the overnight emergency department physician at shift change to follow-up on that. Departure - Departure Clinical Impression: Overdose Qualifiers: Encounter type: initial encounter Injury intent: undetermined intent Qualified Code(s): T50.904A - Poisoning by unspecified drugs, medicaments and biological substances, undetermined, initial encounter Condition: Stable
[2022-04-25 19:03] LABS: BASOPHILS # (AUTO) 0.1 10^3/uL (0.0-0.1); BASOPHILS % (AUTO) 0.3 %; EOSINOPHILS # (AUTO) 0.3 10^3/uL (0.0-0.7); EOSINOPHILS % (AUTO) 1.5 %; HCT - HEMATOCRIT 41.1 % (37.0-47.0); HGB - HEMOGLOBIN 13.2 g/dL (12.0-16.0); LYMPHOCYTES # (AUTO) 1.2 10^3/uL (1.5-3.5); LYMPHOCYTES % (AUTO) 6.7 %; MEAN CORPUSCULAR HEMOGLOBIN 27.2 pg (27.0-31.0); MEAN CORPUSCULAR HGB CONC 32.1 g/dL (32.0-36.0); MEAN CORPUSCULAR VOLUME 84.7 fL (81.0-99.0); MEAN PLATELET VOLUME 9.3 fL (7.9-10.8); MONOCYTES % (AUTO) 5.8 %; NEUTROPHILS # (AUTO) 14.7 10^3/uL (1.5-6.6); NEUTROPHILS % (AUTO) 85.2 %; PLT - PLATELET COUNT 506 10^3/uL (130-450); RED BLOOD COUNT 4.85 10^6/uL (4.20-5.40); RED CELL DISTRIBUTION WIDTH 14.7 % (12.0-15.0); WHITE BLOOD COUNT 17.2 x10^3/uL (4.8-10.8)
[2022-04-25 19:21] LABS: ACETAMINOPHEN < 10 ug/mL (10-30); ALBUMIN 4.4 g/dL (3.2-5.5); ALBUMIN/GLOBULIN RATIO 1.3 (1.0-2.2); ALKALINE PHOSPHATASE 79 IU/L (42-121); ALT ALANINE AMINOTRANSFERASE 17 IU/L (10-60); AST ASPARTATE AMINOTRANSFERASE 18 IU/L (10-42); BILIRUBIN,TOTAL 0.3 mg/dL (0.2-1.0); BUN - BLOOD UREA NITROGEN 17 mg/dL (6-20); CALCIUM 9.1 mg/dL (8.5-10.3); CARBON DIOXIDE - CO2 24 mmol/L (21-32); CHLORIDE 105 mmol/L (101-111); CREATININE 0.7 mg/dL (0.4-1.0); ETOH - ETHANOL < 5.0 mg/dL; GFR - MDRD 89 (>89); GLUCOSE 98 mg/dL (70-100); LIPASE 28 U/L (22-51); POTASSIUM 3.6 mmol/L (3.5-5.0); SALICYLATE < 6.0 mg/dL; SODIUM 137 mmol/L (135-145); TOTAL PROTEIN 7.9 g/dL (6.7-8.2)
[2022-04-25 19:42] LABS: MUDS CUTOFF CONCENTRATIONS CUTOFF CONC BELOW:
[2022-04-25 19:44] LABS: BILIRUBIN,URINE NEGATIVE (NEGATIVE); GLUCOSE, URINE (UA) NEGATIVE (NEGATIVE); KETONES,URINE (UA) NEGATIVE (NEGATIVE); LEUKOCYTE ESTERASE, URINE NEGATIVE (NEGATIVE); NITRITE,URINE NEGATIVE (NEGATIVE); OCCULT BLOOD,URINE MODERATE (NEGATIVE); PH,URINE 5.5 PH (5.0-7.5); PROTEIN,URINE NEGATIVE (NEGATIVE); UROBILINOGEN,URINE 0.2 (NORMAL) E.U./dL (NORMAL)
[2022-04-25 19:47] LABS: CLARITY,URINE CLEAR (CLEAR)
[2022-04-25 19:48] LABS: HCG UR QUAL NEGATIVE
[2022-04-25 19:58] LABS: BACTERIA,URINE Rare /HPF (None Seen); SQUAMOUS EPITHELIAL CELL,UR RARE Squamous (<= Few); WBC,URINE 0-3 /HPF (0-5)
[2022-04-25 19:59] LABS: AMPHETAMINE SCREEN,URINE NEGATIVE (NEGATIVE); BARBITURATE SCREEN,UR NEGATIVE (NEGATIVE); BENZODIAZEPINES SCREEN, URINE POSITIVE (NEGATIVE); COCAINE SCREEN URINE NEGATIVE (NEGATIVE); METHADONE SCREEN, URINE NEGATIVE (NEGATIVE); METHAMPHETAMINES SCREEN, URINE NEGATIVE (NEGATIVE); OPIATE SCREEN, URINE NEGATIVE (NEGATIVE); OXYCODONE SCREEN, URINE NEGATIVE (NEGATIVE); PROPOXYPHENE SCREEN, URINE NEGATIVE (NEGATIVE); THC CANNABINOID SCREEN, URINE NEGATIVE (NEGATIVE); TRICYCLIC ANTIDEPRESSANT,URINE NEGATIVE (NEGATIVE)
--- NOTE | 2022-04-26 01:54 | ED Physician Documentation ---
ED Addendum - Addendum Addendum: 04/26/22 01:52 Patient was endorsed to me by Dr. Bains at 10pm shift change. I d/w telepsych who recommends voluntary inpatient management. also recommends risperdone 1mg bid and depakote 750 qhs. Plan to endorse to daytime ED MD at 7am shift change pending SW assistance in finding psychiatric placement. 04/26/22 07:09 Patient to go to [facility]. Impression 1. overdose 2. depression Disposition admit inpatient psychiatric facility Condition stable
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
[2022-04-26 05:02] LABS: BASOPHILS # (AUTO) 0.1 10^3/uL (0.0-0.1); BASOPHILS % (AUTO) 0.6 %; EOSINOPHILS # (AUTO) 0.4 10^3/uL (0.0-0.7); EOSINOPHILS % (AUTO) 3.6 %; HCT - HEMATOCRIT 39.1 % (37.0-47.0); HGB - HEMOGLOBIN 12.6 g/dL (12.0-16.0); LYMPHOCYTES # (AUTO) 1.8 10^3/uL (1.5-3.5); LYMPHOCYTES % (AUTO) 16.2 %; MEAN CORPUSCULAR HEMOGLOBIN 27.2 pg (27.0-31.0); MEAN CORPUSCULAR HGB CONC 32.2 g/dL (32.0-36.0); MEAN CORPUSCULAR VOLUME 84.4 fL (81.0-99.0); MEAN PLATELET VOLUME 9.4 fL (7.9-10.8); MONOCYTES # (AUTO) 0.9 10^3/uL (0.0-1.0); MONOCYTES % (AUTO) 8.5 %; NEUTROPHILS # (AUTO) 7.7 10^3/uL (1.5-6.6); NEUTROPHILS % (AUTO) 70.9 %; PLT - PLATELET COUNT 482 10^3/uL (130-450); RED BLOOD COUNT 4.63 10^6/uL (4.20-5.40); RED CELL DISTRIBUTION WIDTH 14.8 % (12.0-15.0); WHITE BLOOD COUNT 10.9 x10^3/uL (4.8-10.8)
[2022-04-26] MEDS ORDERED: risperiDONE 1 MG TABLET PO SCH (09:00)
[2022-04-26] MEDS ORDERED: risperiDONE 0.25 MG TABLET PO SCH (09:00)
[2022-04-26 09:57] VITALS: BP 102/74
[2022-04-26] MEDS ORDERED: DIVALPROEX ER 250 MG TABLET PO SCH (17:00)
== END 2022-04-26 09:59 ==
LOC: EDUNIT# → ED 18:42
DX: T43.591A Poisoning by other antipsychotics and neuroleptics, accidental (unintentional), initial encounter (principal); T43.291A Poisoning by other antidepressants, accidental (unintentional), initial encounter; F32.A Depression, unspecified; F41.9 Anxiety disorder, unspecified; F17.200 Nicotine dependence, unspecified, uncomplicated; Z79.899 Other long term (current) drug therapy; Z20.822 Contact with and (suspected) exposure to COVID-19
CPT/HCPCS: 36415; 80053; 80306; 80307; 80320; 80329; 81001; 81025; 83690; 84443; 85025; 87635; 90834; 93005; 99285; A9270; Q3014; 81003; 87086

== ENCOUNTER 2022-06-04 20:28 | Outpatient (CLI) | payer MEDICAID | END 2022-06-04 23:59 | disposition critical access hospital (66) | LOC: EMS 20:28 | DX: R45.851 Suicidal ideations (principal); Z59.00 Homelessness unspecified | CPT/HCPCS: A0425; A0429; A0999 ==

== ENCOUNTER 2022-06-04 20:47 | Emergency (ER) | payer MEDICAID ==
--- NOTE | 2022-06-04 20:48 | ED Physician Documentation ---
PD HPI MHE - Stated complaint Stated Complaint: SI/ETOH - History obtained from History obtained from: Patient, EMS - Additional information Additional information: Patient is brought in by ambulance from a local [place] [facility] ([facility] Patient is very scattered and thus unable to provide any substantive contribution to the HPI. Thus, HPI is predominantly from EMS. EMS says that staff at [facility] called 911 due to patient making suicidal statemen ts and asking staff to kill her. Patient is well known to this ED; this is her 28th [facility] ED visit since 2014, 8th [facility] ED visit over past 12 months. Most of her ED visits are for MHE-related issues. When I try to obtain HPI from patient, she asked to use the restroom, then asked for water, she tells me that she does not know where she placed her meds, although she cannot tell me which ones are misplaced nor for how long. She asks for a bible several times. She does tell me that she wants me to put a gun to her head and kill her. Review of Systems Unable to obtain: Other (cannot reliably obtain ROS at this time due to patient's scattered mentation) PD PAST MEDICAL HISTORY - Past Medical History Past Medical History: Yes - Present Medications Home Medications: Ambulatory Orders Medication Instructions Recorded Confirmed Risperidone [Risperdal] 1 mg PO DAILY 04/21/22 06/05/22 buPROPion [Wellbutrin Sr] 100 mg PO BID 04/21/22 06/05/22 Atomoxetine HCl [Strattera] 40 mg PO DAILY 04/22/22 06/05/22 Divalproex ER [Depakote ER] 250 mg PO DAILY 04/22/22 06/05/22 busPIRone [Buspar] 5 mg PO BID 04/22/22 06/05/22 hydrOXYzine HCL [Hydroxyzine HCl] 50 mg PO QID 04/22/22 06/05/22 LORazepam [Ativan] 1 mg PO Q12H PRN #3 tab 04/23/22 06/05/22 Naltrexone HCl 50 mg PO DAILY 06/05/22 06/05/22 - Allergies Allergies/Adverse Reactions: Allergies Allergy/AdvReac Type Severity Reaction Status Date / Time No Known Drug Allergies Allergy Verified 06/05/22 03:33 PD ED PE NORMAL - Vitals Vital signs reviewed: Yes - General General: No acute distress, Well developed/nourished, Other (awake, alert, scattered in mentation/answers few questions (typically asking for water, wantin g to talk about her missing bible, etc). ) - HEENT HEENT: PERRL, EOMI, Moist mucous membranes - Neck Neck: Supple, no meningeal sign - Cardiac Cardiac: RRR, No murmur - Respiratory Respiratory: No respiratory distress, Clear bilaterally - Abdomen Abdomen: Soft, Non tender - Derm Derm: Normal color, Warm and dry - Extremities Extremities: No edema - Neuro Neuro: Other (oriented to self; does not give answers to place (except says "I'm in the hospital" but not location, and does not answer year)) Eye Opening: Spontaneous Motor: Obeys Commands Results - Vitals Vitals: Vital Signs - 24 hr 06/04/22 06/05/22 06/05/22 21:08 03:22 04:00 Temperature 36.6 C 36.8 C Heart Rate 80 84 75 Respiratory 18 16 16 Rate Blood Pressure 109/78 126/82 H 103/71 O2 Saturation 97 97 97 06/05/22 06/05/22 05:36 06:47 Temperature 36.8 C Heart Rate 80 83 Respiratory 14 12 Rate Blood Pressure 113/77 100/85 H O2 Saturation 98 97 Oxygen O2 Source Room air - Labs Labs: Laboratory Tests 06/04/22 06/04/22 06/04/22 21:00 21:06 21:06 WBC 7.5 RBC 5.14 Hgb 13.5 Hct 42.7 MCV 83.1 MCH 26.3 L MCHC 31.6 L RDW 17.0 H Plt Count 404 MPV 9.9 Neut # (Auto) 4.4 Lymph # (Auto) 2.2 [place] # (Auto) 0.8 Eos # (Auto) 0.2 Baso # (Auto) 0.0 Absolute Nucleated RBC 0.00 Nucleated RBC % 0.0 Sodium 142 Potassium 3.6 Chloride 108 Carbon Dioxide 23 Anion Gap 11.0 BUN 11 Creatinine 0.6 Estimated GFR (MDRD) 106 Glucose 98 Calcium 8.8 Total Bilirubin 0.5 AST 30 ALT 18 Alkaline Phosphatase 79 Total Protein 7.7 Albumin 4.3 Globulin 3.4 Albumin/Globulin Ratio 1.3 Lipase 42 TSH Urine Color LT. YELLOW Urine Clarity HAZY Urine pH 5.5 Ur Specific [place] <=1.005 Urine Protein NEGATIVE Urine Glucose (UA) NEGATIVE Urine Ketones NEGATIVE Urine Occult Blood TRACE-INTA Urine Nitrite NEGATIVE Urine Bilirubin NEGATIVE Urine Urobilinogen 0.2 (NORMAL) Ur Leukocyte Esterase TRACE H Urine RBC 0-5 Urine WBC 0-3 Ur Epithelial Cells FEW Transitional Ur Squamous Epith Cells FEW Squamous Urine Bacteria Few Ur Microscopic Review INDICATED Urine Culture Comments INDICATED Urine HCG, Qual NEGATIVE Salicylates < 6.0 Urine Opiates Screen NEGATIVE Ur Oxycodone Screen NEGATIVE Urine Methadone Screen NEGATIVE Ur Propoxyphene Screen NEGATIVE Acetaminophen < 10 L Ur Barbiturates Screen NEGATIVE Valproic Acid Ur Tricyclics Screen NEGATIVE Ur Phencyclidine Scrn NEGATIVE Ur Amphetamine Screen NEGATIVE U Methamphetamines Scrn NEGATIVE U Benzodiazepines Scrn NEGATIVE Urine Cocaine Screen NEGATIVE U Cannabinoids Screen NEGATIVE Ethyl Alcohol 361.2 SARS-CoV-2 (PCR) 06/04/22 06/04/22 06/04/22 21:06 21:06 21:07 WBC RBC Hgb Hct MCV MCH MCHC RDW Plt Count MPV Neut # (Auto) Lymph # (Auto) [place] # (Auto) Eos # (Auto) Baso # (Auto) Absolute Nucleated RBC Nucleated RBC % Sodium Potassium Chloride Carbon Dioxide Anion Gap BUN Creatinine Estimated GFR (MDRD) Glucose Calcium Total Bilirubin AST ALT Alkaline Phosphatase Total Protein Albumin Globulin Albumin/Globulin Ratio Lipase TSH 1.58 Urine Color Urine Clarity Urine pH Ur Specific [place] Urine Protein Urine Glucose (UA) Urine Ketones Urine Occult Blood Urine Nitrite Urine Bilirubin Urine Urobilinogen Ur Leukocyte Esterase Urine RBC Urine WBC Ur Epithelial Cells Ur Squamous Epith Cells Urine Bacteria Ur Microscopic Review Urine Culture Comments Urine HCG, Qual Salicylates Urine Opiates Screen Ur Oxycodone Screen Urine Methadone Screen Ur Propoxyphene Screen Acetaminophen Ur Barbiturates Screen Valproic Acid < 10.0 Ur Tricyclics Screen Ur Phencyclidine Scrn Ur Amphetamine Screen U Methamphetamines Scrn U Benzodiazepines Scrn Urine Cocaine Screen U Cannabinoids Screen Ethyl Alcohol SARS-CoV-2 (PCR) DETECTED A PD Medical Decision Making - ED course Complexity details: reviewed old records (Reviewed previous ED visit records such as the ED visit last month for similar presentation, on said visit she was eventually transferred to an inpatient psychiatric facility (had OD on prescription medication)), reviewed results, re-evaluated patient, considered differential, d/w patient ED course: Patient has mostly normal blood tests with the notable exception of a serum ethanol level of 361. Incidental note is also made of a positive COVID result from a nasal swab. The patient will be held in the ED for the remainder of my shift overnight, and I will sign out the case to the oncoming ED MD in the morning with the plan of reevaluating patient once she is sober clinically as well as by blood draw. I would estimate repeat blood draw should take place at approximately 9 AM. At that time, if she is still endorsing suicidal ideation, a social work consult can assist in trying to find an appropriate facility for this patient.
--- OUTSIDE RECORDS SUMMARY | 2022-06-04 20:58 | EXTERNAL MEDICAL SUMMARY RPT | Continuity of Care Document ---
:1975 Author Organization [facility] Address [address] [place] [address] Phone Care Team Providers Name Role Phone Barb Portillo Pa-C Unavailable Unavailable Allergies No information. Encounters No information. Functional Status No information. Immunizations No information. Medications date description facility 2022-05-01 00:00 divalproex All 2022-05-01 00:00 buspirone All 2022-05-01 00:00 bupropion hcl All 2022-05-01 00:00 naltrexone All 2022-05-01 00:00 hydroxyzine pamoate All 2022-05-01 00:00 hydroxyzine pamoate All 2022-05-01 00:00 ibuprofen All 2022-05-01 00:00 divalproex All 2022-05-01 00:00 naltrexone All 2022-05-01 00:00 ibuprofen All 2022-05-01 00:00 melatonin All 2022-05-01 00:00 trazodone All 2022-05-01 00:00 bupropion hcl All 2022-05-01 00:00 buspirone All 2022-05-01 00:00 naltrexone All 2022-05-01 00:00 risperidone All 2022-05-01 00:00 atomoxetine All 2022-05-01 00:00 melatonin All 2022-05-01 00:00 risperidone All 2022-05-01 00:00 melatonin All 2022-05-01 00:00 ibuprofen All 2022-05-01 00:00 trazodone All 2022-05-01 00:00 buspirone All 2022-05-01 00:00 hydroxyzine pamoate All 2022-05-01 00:00 trazodone All 2022-05-01 00:00 bupropion hcl All 2022-05-01 00:00 risperidone All 2022-05-01 00:00 atomoxetine All 2022-05-01 00:00 ibuprofen All 2022-05-01 00:00 risperidone All 2022-05-01 00:00 atomoxetine All 2022-05-01 00:00 divalproex All 2022-05-01 00:00 divalproex All 2022-05-01 00:00 atomoxetine All 2022-05-01 00:00 trazodone All 2022-05-01 00:00 buspirone All 2022-05-01 00:00 naltrexone All 2022-05-01 00:00 melatonin All 2022-05-01 00:00 bupropion hcl All 2022-05-01 00:00 hydroxyzine pamoate All Problems No information. Procedures No information. Results/Labs No information. Social History No information. Vital Signs No information.
[2022-06-04 21:13] LABS: MUDS CUTOFF CONCENTRATIONS CUTOFF CONC BELOW:
[2022-06-04 21:14] LABS: BASOPHILS % (AUTO) 0.5 %; EOSINOPHILS # (AUTO) 0.2 10^3/uL (0.0-0.7); EOSINOPHILS % (AUTO) 2.3 %; HCT - HEMATOCRIT 42.7 % (37.0-47.0); HGB - HEMOGLOBIN 13.5 g/dL (12.0-16.0); LYMPHOCYTES # (AUTO) 2.2 10^3/uL (1.5-3.5); LYMPHOCYTES % (AUTO) 28.5 %; MEAN CORPUSCULAR HEMOGLOBIN 26.3 pg (27.0-31.0); MEAN CORPUSCULAR HGB CONC 31.6 g/dL (32.0-36.0); MEAN CORPUSCULAR VOLUME 83.1 fL (81.0-99.0); MEAN PLATELET VOLUME 9.9 fL (7.9-10.8); MONOCYTES # (AUTO) 0.8 10^3/uL (0.0-1.0); MONOCYTES % (AUTO) 10.1 %; NEUTROPHILS # (AUTO) 4.4 10^3/uL (1.5-6.6); NEUTROPHILS % (AUTO) 58.3 %; PLT - PLATELET COUNT 404 10^3/uL (130-450); RED BLOOD COUNT 5.14 10^6/uL (4.20-5.40); WHITE BLOOD COUNT 7.5 x10^3/uL (4.8-10.8)
[2022-06-04 21:15] LABS: BILIRUBIN,URINE NEGATIVE (NEGATIVE); GLUCOSE, URINE (UA) NEGATIVE (NEGATIVE); KETONES,URINE (UA) NEGATIVE (NEGATIVE); LEUKOCYTE ESTERASE, URINE TRACE (NEGATIVE); NITRITE,URINE NEGATIVE (NEGATIVE); OCCULT BLOOD,URINE TRACE-INTA (NEGATIVE); PH,URINE 5.5 PH (5.0-7.5); PROTEIN,URINE NEGATIVE (NEGATIVE); UROBILINOGEN,URINE 0.2 (NORMAL) E.U./dL (NORMAL)
[2022-06-04 21:18] LABS: CLARITY,URINE HAZY (CLEAR); HCG UR QUAL NEGATIVE
[2022-06-04 21:32] LABS: AMPHETAMINE SCREEN,URINE NEGATIVE (NEGATIVE); BACTERIA,URINE Few /HPF (None Seen); BARBITURATE SCREEN,UR NEGATIVE (NEGATIVE); BENZODIAZEPINES SCREEN, URINE NEGATIVE (NEGATIVE); COCAINE SCREEN URINE NEGATIVE (NEGATIVE); EPITHELIAL CELLS,UR FEW Transitional /HPF (<= Few); METHADONE SCREEN, URINE NEGATIVE (NEGATIVE); METHAMPHETAMINES SCREEN, URINE NEGATIVE (NEGATIVE); OPIATE SCREEN, URINE NEGATIVE (NEGATIVE); OXYCODONE SCREEN, URINE NEGATIVE (NEGATIVE); PROPOXYPHENE SCREEN, URINE NEGATIVE (NEGATIVE); RBC,URINE 0-5 /HPF (0-5); SQUAMOUS EPITHELIAL CELL,UR FEW Squamous (<= Few); THC CANNABINOID SCREEN, URINE NEGATIVE (NEGATIVE); TRICYCLIC ANTIDEPRESSANT,URINE NEGATIVE (NEGATIVE); WBC,URINE 0-3 /HPF (0-5)
[2022-06-04 21:33] LABS: ACETAMINOPHEN < 10 ug/mL (10-30); ALBUMIN 4.3 g/dL (3.2-5.5); ALBUMIN/GLOBULIN RATIO 1.3 (1.0-2.2); ALKALINE PHOSPHATASE 79 IU/L (42-121); ALT ALANINE AMINOTRANSFERASE 18 IU/L (10-60); AST ASPARTATE AMINOTRANSFERASE 30 IU/L (10-42); BILIRUBIN,TOTAL 0.5 mg/dL (0.2-1.0); BUN - BLOOD UREA NITROGEN 11 mg/dL (6-20); CALCIUM 8.8 mg/dL (8.5-10.3); CARBON DIOXIDE - CO2 23 mmol/L (21-32); CHLORIDE 108 mmol/L (101-111); CREATININE 0.6 mg/dL (0.4-1.0); ETOH - ETHANOL 361.2 mg/dL; GFR - MDRD 106 (>89); GLUCOSE 98 mg/dL (70-100); LIPASE 42 U/L (22-51); POTASSIUM 3.6 mmol/L (3.5-5.0); SALICYLATE < 6.0 mg/dL; SODIUM 142 mmol/L (135-145); TOTAL PROTEIN 7.7 g/dL (6.7-8.2)
[2022-06-04 21:38] LABS: VALPROIC ACID (DEPAKOTE) < 10.0 ug/mL
[2022-06-05] MEDS ORDERED: ONDANSETRON ODT 4 MG TABLET TL STA (09:05)
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
[2022-06-05] MEDS ORDERED: risperiDONE 1 MG TABLET PO STA (13:23)
[2022-06-05] MEDS ORDERED: buPROPion SR 100 MG TABLET PO STA (13:25)
[2022-06-05] MEDS ORDERED: busPIRone 5 MG TABLET PO SCH (14:00)
[2022-06-05 14:14] VITALS: BP 112/78
== END 2022-06-05 14:12 | disposition home or self-care (01) ==
LOC: EDUNIT# → ED 20:47
DX: F10.129 Alcohol abuse with intoxication, unspecified (principal); Y90.8 Blood alcohol level of 240 mg/100 ml or more; U07.1 COVID-19; F99 Mental disorder, not otherwise specified; Z79.899 Other long term (current) drug therapy
CPT/HCPCS: 36415; 80053; 80164; 80306; 80307; 80320; 80329; 81001; 81025; 83690; 84443; 85025; 87086; 87635; 99283; 99284; A9270; Q0162; 81003

== ENCOUNTER 2022-06-10 16:06 | Outpatient (CLI) | payer MEDICAID | END 2022-06-10 23:59 | disposition critical access hospital (66) | LOC: EMS 16:06 | DX: R41.0 Disorientation, unspecified (principal); R47.81 Slurred speech; R26.81 Unsteadiness on feet; F10.90 Alcohol use, unspecified, uncomplicated | CPT/HCPCS: A0425; A0429; A0999 ==

== ENCOUNTER 2022-06-10 16:32 | Emergency (ER) | payer MEDICAID ==
--- NOTE | 2022-06-10 16:37 | ED Physician Documentation ---
History of Present Illness - Stated complaint Stated Complaint: ETOH - History obtained from History obtained from: Patient, EMS - Additonal information Additional information: 47-year-old woman with history of alcoholism presents by ambulance. Independent history taken from EMS. She states "I might of drank today." EMS states that staff at [facility] caf called because she was intoxicated. Patient denies SI or HI. She does voice interest in detox. 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: section, Breast implants Neuro: Other - Present Medications Home Medications: Ambulatory Orders Medication Instructions Recorded Confirmed Risperidone [Risperdal] 1 mg PO DAILY 04/21/22 06/05/22 buPROPion [Wellbutrin Sr] 100 mg PO BID 04/21/22 06/05/22 Atomoxetine HCl [Strattera] 40 mg PO DAILY 04/22/22 06/05/22 Divalproex ER [Depakote ER] 250 mg PO DAILY 04/22/22 06/05/22 busPIRone [Buspar] 5 mg PO BID 04/22/22 06/05/22 hydrOXYzine HCL [Hydroxyzine HCl] 50 mg PO QID 04/22/22 06/05/22 LORazepam [Ativan] 1 mg PO Q12H PRN #3 tab 04/23/22 06/05/22 Naltrexone HCl 50 mg PO DAILY 06/05/22 06/05/22 buPROPion [Wellbutrin Sr] 100 mg PO BID #14 tablet 06/05/22 busPIRone [Buspar] 5 mg PO BID #14 tablet 06/05/22 risperiDONE [RisperDAL] 1 mg PO DAILY #7 tablet 06/05/22 - Allergies Allergies/Adverse Reactions: Allergies Allergy/AdvReac Type Severity Reaction Status Date / Time No Known Drug Allergies Allergy Verified 06/05/22 03:33 - Social History Does the pt smoke?: Yes Smoking Status: Current every day smoker Does the pt drink ETOH?: Yes Does the pt have substance abuse?: No - Immunizations Immunizations are current?: Yes - POLST Patient has POLST: No POLST Status: Full Code PD ED PE NORMAL - Vitals Vital signs reviewed: Yes - General General: Alert and oriented X 3, Other (Slow slurred speech) - HEENT HEENT: PERRL, EOMI, Other (With horizontal nystagmus) - Neck Neck: Supple, no meningeal sign - Cardiac Cardiac: RRR, No murmur - Respiratory Respiratory: No respiratory distress, Clear bilaterally - Abdomen Abdomen: Non tender - Derm Derm: No rash - Neuro Neuro: Alert and oriented X 3 Eye Opening: Spontaneous Motor: Obeys Commands Verbal: Oriented GCS Score: 15 Results - Vitals Vitals: Vital Signs - 24 hr 06/10/22 06/10/22 16:39 19:31 Temperature 36.4 C L 36.6 C Heart Rate 84 79 Respiratory 18 18 Rate Blood Pressure 157/117 H 126/90 H O2 Saturation 99 99 Oxygen O2 Source Room air - Labs Labs: Laboratory Tests 06/10/22 06/10/22 06/10/22 16:47 16:47 16:47 WBC 5.2 RBC 5.02 Hgb 13.4 Hct 42.1 MCV 83.9 MCH 26.7 L MCHC 31.8 L RDW 18.0 H Plt Count 425 MPV 9.5 Neut # (Auto) 3.6 Lymph # (Auto) 1.2 L Irion # (Auto) 0.3 Eos # (Auto) 0.1 Baso # (Auto) 0.0 Absolute Nucleated RBC 0.00 Nucleated RBC % 0.0 Sodium 138 Potassium 3.9 Chloride 103 Carbon Dioxide 25 Anion Gap 10.0 BUN 12 Creatinine 0.6 Estimated GFR (MDRD) 106 Glucose 110 H Calcium 8.6 Total Bilirubin 0.3 AST 29 ALT 31 Alkaline Phosphatase 71 Total Protein 7.9 Albumin 4.3 Globulin 3.6 Albumin/Globulin Ratio 1.2 Lipase 30 TSH 0.60 Urine Color Urine Clarity Urine pH Ur Specific [place] Urine Protein Urine Glucose (UA) Urine Ketones Urine Occult Blood Urine Nitrite Urine Bilirubin Urine Urobilinogen Ur Leukocyte Esterase Ur Microscopic Review Urine Culture Comments Urine HCG, Qual Salicylates < 6.0 Urine Opiates Screen Ur Oxycodone Screen Urine Methadone Screen Ur Propoxyphene Screen Acetaminophen < 10 L Ur Barbiturates Screen Ur Tricyclics Screen Ur Phencyclidine Scrn Ur Amphetamine Screen U Methamphetamines Scrn U Benzodiazepines Scrn Urine Cocaine Screen U Cannabinoids Screen Ethyl Alcohol 261.5 SARS-CoV-2 (PCR) 06/10/22 06/10/22 16:52 17:00 WBC RBC Hgb Hct MCV MCH MCHC RDW Plt Count MPV Neut # (Auto) Lymph # (Auto) Irion # (Auto) Eos # (Auto) Baso # (Auto) Absolute Nucleated RBC Nucleated RBC % Sodium Potassium Chloride Carbon Dioxide Anion Gap BUN Creatinine Estimated GFR (MDRD) Glucose Calcium Total Bilirubin AST ALT Alkaline Phosphatase Total Protein Albumin Globulin Albumin/Globulin Ratio Lipase TSH Urine Color YELLOW Urine Clarity CLEAR Urine pH 6.5 Ur Specific [place] 1.015 Urine Protein NEGATIVE Urine Glucose (UA) NEGATIVE Urine Ketones NEGATIVE Urine Occult Blood NEGATIVE Urine Nitrite NEGATIVE Urine Bilirubin NEGATIVE Urine Urobilinogen 0.2 (NORMAL) Ur Leukocyte Esterase NEGATIVE Ur Microscopic Review NOT INDICATED Urine Culture Comments NOT INDICATED Urine HCG, Qual NEGATIVE Salicylates Urine Opiates Screen NEGATIVE Ur Oxycodone Screen NEGATIVE Urine Methadone Screen NEGATIVE Ur Propoxyphene Screen NEGATIVE Acetaminophen Ur Barbiturates Screen NEGATIVE Ur Tricyclics Screen NEGATIVE Ur Phencyclidine Scrn NEGATIVE Ur Amphetamine Screen NEGATIVE U Methamphetamines Scrn NEGATIVE U Benzodiazepines Scrn NEGATIVE Urine Cocaine Screen NEGATIVE U Cannabinoids Screen POSITIVE H Ethyl Alcohol SARS-CoV-2 (PCR) DETECTED A PD Medical Decision Making - ED course ED course: 47-year-old woman presents intoxicated. No SI or HI. She voices a willingness to go to detox. CBC reviewed and normal. CMP reviewed and normal. TSH reviewed and normal. Urinalysis and urine test normal/negative. Toxicology test notable for positive cannabinoids and blood alcohol of 261. COVID test is positive. She originally tested positive for COVID on the . It was relatively asymptomatic. So she is probably 7 days out from positivity at this point. Departure - Departure Clinical Impression: COVID-19, Alcohol intoxication
[2022-06-10 16:52] LABS: BASOPHILS % (AUTO) 0.6 %; EOSINOPHILS # (AUTO) 0.1 10^3/uL (0.0-0.7); HCT - HEMATOCRIT 42.1 % (37.0-47.0); HGB - HEMOGLOBIN 13.4 g/dL (12.0-16.0); LYMPHOCYTES # (AUTO) 1.2 10^3/uL (1.5-3.5); LYMPHOCYTES % (AUTO) 22.8 %; MEAN CORPUSCULAR HEMOGLOBIN 26.7 pg (27.0-31.0); MEAN CORPUSCULAR HGB CONC 31.8 g/dL (32.0-36.0); MEAN CORPUSCULAR VOLUME 83.9 fL (81.0-99.0); MEAN PLATELET VOLUME 9.5 fL (7.9-10.8); MONOCYTES # (AUTO) 0.3 10^3/uL (0.0-1.0); MONOCYTES % (AUTO) 5.8 %; NEUTROPHILS # (AUTO) 3.6 10^3/uL (1.5-6.6); NEUTROPHILS % (AUTO) 69.4 %; PLT - PLATELET COUNT 425 10^3/uL (130-450); RED BLOOD COUNT 5.02 10^6/uL (4.20-5.40); WHITE BLOOD COUNT 5.2 x10^3/uL (4.8-10.8)
[2022-06-10 17:07] LABS: ACETAMINOPHEN < 10 ug/mL (10-30); ALBUMIN 4.3 g/dL (3.2-5.5); ALBUMIN/GLOBULIN RATIO 1.2 (1.0-2.2); ALKALINE PHOSPHATASE 71 IU/L (42-121); ALT ALANINE AMINOTRANSFERASE 31 IU/L (10-60); AST ASPARTATE AMINOTRANSFERASE 29 IU/L (10-42); BILIRUBIN,TOTAL 0.3 mg/dL (0.2-1.0); BUN - BLOOD UREA NITROGEN 12 mg/dL (6-20); CALCIUM 8.6 mg/dL (8.5-10.3); CARBON DIOXIDE - CO2 25 mmol/L (21-32); CHLORIDE 103 mmol/L (101-111); CREATININE 0.6 mg/dL (0.4-1.0); ETOH - ETHANOL 261.5 mg/dL; GFR - MDRD 106 (>89); GLUCOSE 110 mg/dL (70-100); LIPASE 30 U/L (22-51); POTASSIUM 3.9 mmol/L (3.5-5.0); SALICYLATE < 6.0 mg/dL; SODIUM 138 mmol/L (135-145); TOTAL PROTEIN 7.9 g/dL (6.7-8.2)
[2022-06-10 17:11] LABS: BILIRUBIN,URINE NEGATIVE (NEGATIVE); GLUCOSE, URINE (UA) NEGATIVE (NEGATIVE); KETONES,URINE (UA) NEGATIVE (NEGATIVE); LEUKOCYTE ESTERASE, URINE NEGATIVE (NEGATIVE); MUDS CUTOFF CONCENTRATIONS CUTOFF CONC BELOW:; NITRITE,URINE NEGATIVE (NEGATIVE); OCCULT BLOOD,URINE NEGATIVE (NEGATIVE); PH,URINE 6.5 PH (5.0-7.5); PROTEIN,URINE NEGATIVE (NEGATIVE); UROBILINOGEN,URINE 0.2 (NORMAL) E.U./dL (NORMAL)
--- OUTSIDE RECORDS SUMMARY | 2022-06-10 17:18 | EXTERNAL MEDICAL SUMMARY RPT | Continuity of Care Document ---
:1975 Author Organization [facility] Address [address] [place] [address] Phone Care Team Providers Name Role Phone [...]
[2022-06-10 17:25] LABS: CLARITY,URINE CLEAR (CLEAR); HCG UR QUAL NEGATIVE
[2022-06-10 17:26] LABS: AMPHETAMINE SCREEN,URINE NEGATIVE (NEGATIVE); BARBITURATE SCREEN,UR NEGATIVE (NEGATIVE); BENZODIAZEPINES SCREEN, URINE NEGATIVE (NEGATIVE); COCAINE SCREEN URINE NEGATIVE (NEGATIVE); METHADONE SCREEN, URINE NEGATIVE (NEGATIVE); METHAMPHETAMINES SCREEN, URINE NEGATIVE (NEGATIVE); OPIATE SCREEN, URINE NEGATIVE (NEGATIVE); OXYCODONE SCREEN, URINE NEGATIVE (NEGATIVE); PROPOXYPHENE SCREEN, URINE NEGATIVE (NEGATIVE); THC CANNABINOID SCREEN, URINE POSITIVE (NEGATIVE); TRICYCLIC ANTIDEPRESSANT,URINE NEGATIVE (NEGATIVE)
--- NOTE | 2022-06-11 02:15 | ED Physician Documentation ---
ED Addendum - Addendum Addendum: 06/11/22 02:09 I received signout on this patient from Dr. Bains at the end of his shift. At the time of signout, the plan is to hold patient in the ED overnight so that she can be evaluated the morning by aids social worker to help with finding inpatient placement for detox from alcohol. Approximately 1:50 AM, ED RN informs me that the patient is awake, alert, and requesting discharge at this time. I evaluated patient and find her to be awake, alert, oriented x3, pleasant and conversant with clear, articulate speech (no slurring noted). Her answers are quick and appropriate. She confirms that she would like to be discharged at this time. She says that she has completed an intake process for an inpatient detox facility (Apr), although the intake is scheduled for June 22. At the time of my evaluation the patient, she is not exhibiting any overt signs/symptoms of alcohol withdrawal (no tremulousness, diaphoresis, overt anxiety or hallucinatory behavior). I discussed with her my concern for the development of alcohol withdrawal, and thus I offered to prescribe medication to help ease the symptoms and she would like such a prescription. I electronically submitted prescriptions for ondansetron and lorazepam to [facility] pharmacy in [place]. I carefully instructed the patient to take the lorazepam according to the prescription instructions as needed for alcohol withdrawal symptoms; specifically instructed her to not take the lorazepam in excess of the dosing/schedule, and to not take any alcohol while she is taking the lorazepam. I instructed her to return to the emergency department if she feels the lorazepam is not adequately controlling her symptoms. She expresses understanding of, and agreement with, this discussion. 06/11/22 02:27 Shortly after I had prepared the discharge instructions for this patient, I was informed by the ED RN that the patient is starting to feel symptoms of withdrawal; specifically, that the patient is starting to feel shaky, anxious. I reevaluated the patient, and she exhibits mild tremulousness. The patient is now saying she is agreeable to waiting in the ED until the morning to speak with a aids social worker about options for inpatient detox, and I strongly encouraged the patient to follow through on this plan. She is given 2 mg lorazepam p.o. Note that [facility] was contacted regarding bed availability for detox; they indicate that they do have a bed available, but they cannot take this patient because she is COVID-positive and they do not have any single-occupant rooms. 06/11/22 06:57 Care of patient turned over to oncoming ED MD (Dr. Busch) at end of my shift
[2022-06-11] MEDS ORDERED: LORazepam 0.5 MG TABLET PO STA ×2 (02:27→03:36)
[2022-06-11] MEDS ORDERED: chlordiazePOXIDE 25 MG CAPSULE PO STA (05:04)
[2022-06-11] MEDS ORDERED: ONDANSETRON ODT 4 MG TABLET TL STA (06:31)
--- NOTE | 2022-06-11 10:54 | ED Physician Documentation ---
ED Addendum - Addendum Addendum: 06/11/22 10:52 Patient received a signout from outgoing physician, please see their do cumentation for further detail. Patient evaluated independently at bedside. Found to be resting comfortably and in no acute distress. Evaluated by social work. At this time unfortunately there are no beds available at local area detox.Discussed options with patient including discharge with medication for symptomatic management and follow-up on an outpatient basis versus continued boarding in the emergency department. At this time she wished she was to be discharged. She denies SI, HI. Otherwise demonstrates clear thinking at and decision-making capacity.She does currently report that she has intake interview for detox this coming 06/22/2022. Clear return precautions and follow-up instructions were given prior to discharge. 06/11/22 10:54
[2022-06-11 11:11] VITALS: BP 107/74
== END 2022-06-11 11:10 | disposition home or self-care (01) ==
LOC: EDUNIT# → ED 16:32
DX: F10.129 Alcohol abuse with intoxication, unspecified (principal); U07.1 COVID-19; F17.200 Nicotine dependence, unspecified, uncomplicated
CPT/HCPCS: 36415; 80053; 80306; 80307; 80320; 80329; 81003; 81025; 83690; 84443; 85025; 87635; 99283; A9270; Q0162; 81001; 87086

== ENCOUNTER 2022-06-18 14:25 | Outpatient (CLI) | payer MEDICAID | END 2022-06-18 14:26 | disposition critical access hospital (66) | LOC: EMS 14:25 | DX: R45.851 Suicidal ideations (principal); F10.90 Alcohol use, unspecified, uncomplicated | CPT/HCPCS: A0425; A0429; A0999 ==

== ENCOUNTER 2022-06-18 14:49 | Emergency (ER) | payer MEDICAID ==
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
--- OUTSIDE RECORDS SUMMARY | 2022-06-18 15:25 | EXTERNAL MEDICAL SUMMARY RPT | Continuity of Care Document ---
:1975 Author Organization [facility] Address [address] [place] [address] Phone Care Team Providers Name Role Phone [...]
[2022-06-18 15:43] LABS: BASOPHILS % (AUTO) 0.4 %; EOSINOPHILS # (AUTO) 0.3 10^3/uL (0.0-0.7); HCT - HEMATOCRIT 43.5 % (37.0-47.0); HGB - HEMOGLOBIN 13.9 g/dL (12.0-16.0); LYMPHOCYTES # (AUTO) 2.2 10^3/uL (1.5-3.5); LYMPHOCYTES % (AUTO) 21.9 %; MEAN CORPUSCULAR VOLUME 84.6 fL (81.0-99.0); MEAN PLATELET VOLUME 9.5 fL (7.9-10.8); MONOCYTES # (AUTO) 0.7 10^3/uL (0.0-1.0); MONOCYTES % (AUTO) 7.4 %; NEUTROPHILS # (AUTO) 6.7 10^3/uL (1.5-6.6); PLT - PLATELET COUNT 433 10^3/uL (130-450); RED BLOOD COUNT 5.14 10^6/uL (4.20-5.40); RED CELL DISTRIBUTION WIDTH 18.1 % (12.0-15.0); WHITE BLOOD COUNT 9.9 x10^3/uL (4.8-10.8)
[2022-06-18 15:45] LABS: MUDS CUTOFF CONCENTRATIONS CUTOFF CONC BELOW:
[2022-06-18 15:47] LABS: BILIRUBIN,URINE NEGATIVE (NEGATIVE); GLUCOSE, URINE (UA) NEGATIVE (NEGATIVE); KETONES,URINE (UA) NEGATIVE (NEGATIVE); LEUKOCYTE ESTERASE, URINE NEGATIVE (NEGATIVE); NITRITE,URINE NEGATIVE (NEGATIVE); OCCULT BLOOD,URINE NEGATIVE (NEGATIVE); PROTEIN,URINE NEGATIVE (NEGATIVE); UROBILINOGEN,URINE 0.2 (NORMAL) E.U./dL (NORMAL)
[2022-06-18 15:52] LABS: CLARITY,URINE CLEAR (CLEAR); HCG UR QUAL NEGATIVE
[2022-06-18 15:58] LABS: AMPHETAMINE SCREEN,URINE NEGATIVE (NEGATIVE); BARBITURATE SCREEN,UR NEGATIVE (NEGATIVE); BENZODIAZEPINES SCREEN, URINE POSITIVE (NEGATIVE); COCAINE SCREEN URINE NEGATIVE (NEGATIVE); METHADONE SCREEN, URINE NEGATIVE (NEGATIVE); METHAMPHETAMINES SCREEN, URINE NEGATIVE (NEGATIVE); OPIATE SCREEN, URINE NEGATIVE (NEGATIVE); OXYCODONE SCREEN, URINE NEGATIVE (NEGATIVE); PROPOXYPHENE SCREEN, URINE NEGATIVE (NEGATIVE); THC CANNABINOID SCREEN, URINE NEGATIVE (NEGATIVE); TRICYCLIC ANTIDEPRESSANT,URINE NEGATIVE (NEGATIVE)
[2022-06-18 16:03] LABS: ACETAMINOPHEN < 10 ug/mL (10-30); ALBUMIN 4.5 g/dL (3.2-5.5); ALBUMIN/GLOBULIN RATIO 1.4 (1.0-2.2); ALKALINE PHOSPHATASE 83 IU/L (42-121); ALT ALANINE AMINOTRANSFERASE 23 IU/L (10-60); AST ASPARTATE AMINOTRANSFERASE 29 IU/L (10-42); BILIRUBIN,TOTAL 0.3 mg/dL (0.2-1.0); BUN - BLOOD UREA NITROGEN 11 mg/dL (6-20); CALCIUM 8.7 mg/dL (8.5-10.3); CARBON DIOXIDE - CO2 24 mmol/L (21-32); CHLORIDE 99 mmol/L (101-111); CREATININE 0.7 mg/dL (0.4-1.0); ETOH - ETHANOL 310.2 mg/dL; GFR - MDRD 89 (>89); GLUCOSE 96 mg/dL (70-100); LIPASE 36 U/L (22-51); POTASSIUM 3.8 mmol/L (3.5-5.0); SALICYLATE < 6.0 mg/dL; SODIUM 136 mmol/L (135-145); TOTAL PROTEIN 7.8 g/dL (6.7-8.2)
[2022-06-18] MEDS ORDERED: IBUPROFEN 600 MG TABLET PO STA (20:56)
[2022-06-19 06:18] VITALS: BP 112/75
--- NOTE | 2022-06-19 08:32 | ED Physician Documentation ---
ED Addendum - Addendum Addendum: 06/19/22 08:29 Received signout from off going ED physician (Dr. Alonzo) at end of his shift. Please see Dr. Alonzo's note for complete history and physical. In brief, this patient presents with acute alcohol intoxication and vague suicidal statements. She has had many similar previous presentations to this emergency department, typically sobering up and being discharged home. Patient slept through most of my shift. A repeat alcohol level was undertaken at 5 AM and this result was negative (undetectable level of ethanol). I evaluated patient once this was resulted, and she is awake, alert, oriented x3. She is pleasant and polite, apologetic. She strongly denies suicidal ideation and is requesting discharge home.
== END 2022-06-19 06:53 | disposition home or self-care (01) ==
LOC: ED 14:49
DX: F10.920 Alcohol use, unspecified with intoxication, uncomplicated (principal); Y90.8 Blood alcohol level of 240 mg/100 ml or more; R41.82 Altered mental status, unspecified; Z59.00 Homelessness unspecified; F17.200 Nicotine dependence, unspecified, uncomplicated
CPT/HCPCS: 36415; 80053; 80306; 80307; 80320; 80329; 81003; 81025; 83690; 84443; 85025; 99283; A9270; 81001; 87086

== ENCOUNTER 2022-06-24 19:39 | Outpatient (CLI) | payer MEDICAID | END 2022-06-24 23:59 | disposition critical access hospital (66) | LOC: EMS 19:39 | DX: R45.89 Other symptoms and signs involving emotional state (principal); R45.851 Suicidal ideations; F10.90 Alcohol use, unspecified, uncomplicated | CPT/HCPCS: A0425; A0429; A0999 ==

== ENCOUNTER 2022-07-08 06:51 | Outpatient (CLI) | payer MEDICAID | END 2022-07-08 06:52 | disposition critical access hospital (66) | LOC: EMS 06:51 | DX: R45.82 Worries (principal); F41.9 Anxiety disorder, unspecified | CPT/HCPCS: A0425; A0429; A0999 ==

== ENCOUNTER 2022-07-08 07:14 | Emergency (ER) | payer MEDICAID ==
[2022-07-08] MEDS ORDERED: diazePAM 5 MG TABLET PO STA (07:27)
--- OUTSIDE RECORDS SUMMARY | 2022-07-08 07:27 | EXTERNAL MEDICAL SUMMARY RPT | Continuity of Care Document ---
Author Name Unknown Address [address] [place] [address] Phone Organization [facility] Address [address] [place] [address] Phone Care Team Providers Care Control Officer Manager Name Role Phone Barb Portillo Pa-C Unavailable Unavailable Medications date description facility 2022-05-01 00:00 divalproex [...]
[2022-07-08 07:38] LABS: BASOPHILS % (AUTO) 0.7 %; EOSINOPHILS # (AUTO) 0.1 10^3/uL (0.0-0.7); EOSINOPHILS % (AUTO) 2.2 %; HCT - HEMATOCRIT 38.3 % (37.0-47.0); HGB - HEMOGLOBIN 12.5 g/dL (12.0-16.0); LYMPHOCYTES # (AUTO) 1.1 10^3/uL (1.5-3.5); MEAN CORPUSCULAR HEMOGLOBIN 27.1 pg (27.0-31.0); MEAN CORPUSCULAR HGB CONC 32.6 g/dL (32.0-36.0); MEAN CORPUSCULAR VOLUME 83.1 fL (81.0-99.0); MONOCYTES # (AUTO) 0.5 10^3/uL (0.0-1.0); MONOCYTES % (AUTO) 9.7 %; NEUTROPHILS # (AUTO) 3.7 10^3/uL (1.5-6.6); NEUTROPHILS % (AUTO) 67.2 %; PLT - PLATELET COUNT 405 10^3/uL (130-450); RED BLOOD COUNT 4.61 10^6/uL (4.20-5.40); RED CELL DISTRIBUTION WIDTH 18.4 % (12.0-15.0); WHITE BLOOD COUNT 5.6 x10^3/uL (4.8-10.8)
[2022-07-08 07:52] LABS: ALBUMIN 4.1 g/dL (3.2-5.5); ALBUMIN/GLOBULIN RATIO 1.3 (1.0-2.2); BILIRUBIN,TOTAL 0.5 mg/dL (0.2-1.0); CALCIUM 9.2 mg/dL (8.5-10.3); CREATININE 0.7 mg/dL (0.4-1.0); TOTAL PROTEIN 7.2 g/dL (6.7-8.2)
--- NOTE | 2022-07-08 08:21 | ED Physician Documentation ---
History of Present Illness - Stated complaint Stated Complaint: SHAKINESS - Chief complaint Chief Complaint: General - History obtained from History obtained from: Patient - Additonal information Additional information: The patient comes to the emergency department chief complaint of shaking. She states that she took an extra couple of pills of her bupropion this morning, trying to feel better after waking up with a sense of shaking and anxiety. She denies any nausea or vomiting. No hallucinations. No recent illness. She states she has a cold feeling in her chest and back but no pain. She has a history of alcoholism and last drink was 4 days ago. She denies taking any other drugs. No other complaints at this time. The patient is well-known to emergency department but is usually here for alcohol intoxication. She does states she feels somewhat anxious. 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: section, Breast implants Neuro: Other - Present Medications Home Medications: Ambulatory Orders Medication Instructions Recorded Confirmed Risperidone [Risperdal] 1 mg PO DAILY 04/21/22 06/05/22 buPROPion [Wellbutrin Sr] 100 mg PO BID 04/21/22 06/05/22 Atomoxetine HCl [Strattera] 40 mg PO DAILY 04/22/22 06/05/22 Divalproex ER [Depakote ER] 250 mg PO DAILY 04/22/22 06/05/22 busPIRone [Buspar] 5 mg PO BID 04/22/22 06/05/22 hydrOXYzine HCL [Hydroxyzine HCl] 50 mg PO QID 04/22/22 06/05/22 LORazepam [Ativan] 1 mg PO Q12H PRN #3 tab 04/23/22 06/05/22 Naltrexone HCl 50 mg PO DAILY 06/05/22 06/05/22 buPROPion [Wellbutrin Sr] 100 mg PO BID #14 tablet 06/05/22 busPIRone [Buspar] 5 mg PO BID #14 tablet 06/05/22 risperiDONE [RisperDAL] 1 mg PO DAILY #7 tablet 06/05/22 LORazepam [Ativan] 1 - 2 mg PO BID PRN #14 tablet 06/11/22 Ondansetron Odt [Zofran Odt] 4 mg TL Q6H PRN #10 tablet 06/11/22 - Allergies Allergies/Adverse Reactions: Allergies Allergy/AdvReac Type Severity Reaction Status Date / Time No Known Drug Allergies Allergy Verified 07/08/22 07:21 - Social History Does the pt smoke?: Yes Smoking Status: Current every day smoker Does the pt drink ETOH?: Yes Does the pt have substance abuse?: No - Immunizations Immunizations are current?: Yes - POLST Patient has POLST: No POLST Status: Full Code PD ED PE NORMAL - Vitals Vital signs reviewed: Yes - General General: Alert and oriented X 3, No acute distress, Well developed/nourished, Other (The patient is mildly anxious and shaky/tremulous in appearance.) - HEENT HEENT: Atraumatic, PERRL, EOMI, Moist mucous membranes - Neck Neck: Supple, no meningeal sign - Cardiac Cardiac: RRR, No murmur - Respiratory Respiratory: No respiratory distress, Clear bilaterally - Abdomen Abdomen: Soft, Non tender, Non distended - Derm Derm: Normal color, Warm and dry, No rash - Extremities Extremities: No deformity - Neuro Neuro: Alert and oriented X 3, Other (Mild tremors. Otherwise grossly intact.) - Psych Psych: Normal mood, Normal affect Results - Vitals Vitals: Vital Signs - 24 hr 07/08/22 07:18 Temperature 36.5 C Heart Rate 85 Respiratory 20 Rate Blood Pressure 148/88 H O2 Saturation 98 Oxygen O2 Source Room air - Labs Labs: Laboratory Tests 07/08/22 07/08/22 07/08/22 07:34 07:34 07:34 WBC 5.6 RBC 4.61 Hgb 12.5 Hct 38.3 MCV 83.1 MCH 27.1 MCHC 32.6 RDW 18.4 H Plt Count 405 MPV 10.0 Neut # (Auto) 3.7 Lymph # (Auto) 1.1 L Gage # (Auto) 0.5 Eos # (Auto) 0.1 Baso # (Auto) 0.0 Absolute Nucleated RBC 0.00 Nucleated RBC % 0.0 Sodium 139 Potassium 4.0 Chloride 105 Carbon Dioxide 25 Anion Gap 9.0 BUN 16 Creatinine 0.7 Estimated GFR (MDRD) 89 Glucose 97 Calcium 9.2 Total Bilirubin 0.5 AST 17 ALT 12 Alkaline Phosphatase 53 Total Protein 7.2 Albumin 4.1 Globulin 3.1 Albumin/Globulin Ratio 1.3 Lipase 25 TSH 2.00 PD Medical Decision Making - ED course Complexity details: reviewed old records, reviewed results, re-evaluated patient, considered differential, d/w patient ED course: The patient was given a dose of Valium and worked up with labs including CBC, ER abdominal panel and TSH, as well as EKG, all of which were unremarkable. I felt patient was stable for discharge home. We have discussed the usual indications for return, And the need to take all medications only as prescribed. Departure - Departure Disposition: 01 Home, Self Care Clinical Impression: Anxiety, Tremors of nervous system Condition: Stable Instructions: ED Panic Attack, ED Drug React Adverse Other Comments: Your EKG and all of your labs look good. It is not clear what the cause of the weak knees and shaking this morning, but it may have been an anxiety reaction. It is very important that you take all of your medications only as directed to avoid any unpleasant side effects or toxicity. Please follow-up with your primary care doctor as needed.
[2022-07-08 08:43] VITALS: BP 130/80
== END 2022-07-08 08:42 | disposition home or self-care (01) ==
LOC: EDUNIT# → ED 07:14
DX: F41.9 Anxiety disorder, unspecified (principal); R25.1 Tremor, unspecified; F17.200 Nicotine dependence, unspecified, uncomplicated
CPT/HCPCS: 36415; 80053; 83690; 84443; 85025; 93005; 99283; 99284; A9270

== ENCOUNTER 2022-07-21 11:58 | Outpatient (CLI) | payer MEDICAID | END 2022-07-21 11:59 | disposition critical access hospital (66) | LOC: EMS 11:58 | DX: Z04.6 Encounter for general psychiatric examination, requested by authority (principal); F10.129 Alcohol abuse with intoxication, unspecified | CPT/HCPCS: A0425; A0429; A0999 ==

== ENCOUNTER 2022-07-21 12:15 | Emergency (ER) | payer MEDICAID ==
[2022-07-21] MEDS ORDERED: SODIUM CHLORIDE 0.9% 1,000 ML IV STA ×2 (12:26→14:09)
[2022-07-21 12:55] LABS: BASOPHILS # (AUTO) 0.1 10^3/uL (0.0-0.1); BASOPHILS % (AUTO) 0.4 %; EOSINOPHILS # (AUTO) 0.1 10^3/uL (0.0-0.7); EOSINOPHILS % (AUTO) 0.5 %; HCT - HEMATOCRIT 43.9 % (37.0-47.0); HGB - HEMOGLOBIN 14.3 g/dL (12.0-16.0); LYMPHOCYTES # (AUTO) 2.9 10^3/uL (1.5-3.5); LYMPHOCYTES % (AUTO) 26.3 %; MEAN CORPUSCULAR HEMOGLOBIN 26.8 pg (27.0-31.0); MEAN CORPUSCULAR HGB CONC 32.6 g/dL (32.0-36.0); MEAN CORPUSCULAR VOLUME 82.2 fL (81.0-99.0); MEAN PLATELET VOLUME 9.5 fL (7.9-10.8); MONOCYTES # (AUTO) 0.6 10^3/uL (0.0-1.0); MONOCYTES % (AUTO) 5.1 %; NEUTROPHILS # (AUTO) 7.5 10^3/uL (1.5-6.6); NEUTROPHILS % (AUTO) 67.4 %; PLT - PLATELET COUNT 445 10^3/uL (130-450); RED BLOOD COUNT 5.34 10^6/uL (4.20-5.40); RED CELL DISTRIBUTION WIDTH 19.4 % (12.0-15.0); WHITE BLOOD COUNT 11.2 x10^3/uL (4.8-10.8)
--- NOTE | 2022-07-21 12:55 | ED Physician Documentation ---
History of Present Illness - Stated complaint Stated Complaint: ETOH - Additonal information Additional information: 47-year-old female is brought in the emergency department by EMS under a reported MICHEL. [facility] passed out on the lawn. [place] [employer] felt that she was too intoxicated and unsafe there she was brought into the emergency department. On arrival she smells heavily of alcohol and appears intoxicated. She is not able to participate in the history generally just mumbling. She appears atraumatic however. No worrisome vital sign derangement. 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: section, Breast implants Neuro: Other - Present Medications Home Medications: Ambulatory Orders Medication Instructions Recorded Confirmed Risperidone [Risperdal] 1 mg PO DAILY 04/21/22 06/05/22 buPROPion [Wellbutrin Sr] 100 mg PO BID 04/21/22 06/05/22 Atomoxetine HCl [Strattera] 40 mg PO DAILY 04/22/22 06/05/22 Divalproex ER [Depakote ER] 250 mg PO DAILY 04/22/22 06/05/22 busPIRone [Buspar] 5 mg PO BID 04/22/22 06/05/22 hydrOXYzine HCL [Hydroxyzine HCl] 50 mg PO QID 04/22/22 06/05/22 LORazepam [Ativan] 1 mg PO Q12H PRN #3 tab 04/23/22 06/05/22 Naltrexone HCl 50 mg PO DAILY 06/05/22 06/05/22 buPROPion [Wellbutrin Sr] 100 mg PO BID #14 tablet 06/05/22 busPIRone [Buspar] 5 mg PO BID #14 tablet 06/05/22 risperiDONE [RisperDAL] 1 mg PO DAILY #7 tablet 06/05/22 LORazepam [Ativan] 1 - 2 mg PO BID PRN #14 tablet 06/11/22 Ondansetron Odt [Zofran Odt] 4 mg TL Q6H PRN #10 tablet 06/11/22 - Allergies Allergies/Adverse Reactions: Allergies Allergy/AdvReac Type Severity Reaction Status Date / Time No Known Drug Allergies Allergy Verified 07/08/22 07:21 - Social History Does the pt smoke?: Yes Smoking Status: Current every day smoker Does the pt drink ETOH?: Yes Does the pt have substance abuse?: No - Immunizations Immunizations are current?: Yes - POLST Patient has POLST: No POLST Status: Full Code PD ED PE NORMAL - General General: No acute distress (Pe[place] intoxicated, smells heavily of alcohol). No: Alert and oriented X 3 - HEENT HEENT: EOMI - Cardiac Cardiac: RRR, No murmur - Respiratory Respiratory: No respiratory distress, Clear bilaterally - Abdomen Abdomen: Normal bowel sounds, Soft - Back Back: No CVA TTP, No spinal TTP - Derm Derm: Normal color, Warm and dry, No rash - Extremities Extremities: No deformity - Neuro Neuro: Alert and oriented X 3, chief pilot 2-12 intact Eye Opening: Spontaneous Motor: Obeys Commands Verbal: Oriented GCS Score: 15 Results - Vitals Vitals: Vital Signs - 24 hr 07/21/22 07/21/22 12:28 14:31 Temperature 37 C Heart Rate 90 89 Respiratory 14 14 Rate Blood Pressure 136/81 H 132/80 H O2 Saturation 98 99 Oxygen O2 Source Room air - Labs Labs: Laboratory Tests 07/21/22 07/21/22 07/21/22 12:49 12:49 12:49 WBC 11.2 H RBC 5.34 Hgb 14.3 Hct 43.9 MCV 82.2 MCH 26.8 L MCHC 32.6 RDW 19.4 H Plt Count 445 MPV 9.5 Neut # (Auto) 7.5 H Lymph # (Auto) 2.9 Merrick # (Auto) 0.6 Eos # (Auto) 0.1 Baso # (Auto) 0.1 Absolute Nucleated RBC 0.00 Nucleated RBC % 0.0 Sodium 142 Potassium 3.5 Chloride 108 Carbon Dioxide 22 Anion Gap 12.0 BUN 11 Creatinine 0.5 Estimated GFR (MDRD) 131 Glucose 93 Calcium 8.4 L Magnesium 2.6 Total Bilirubin 0.4 AST 28 ALT 22 Alkaline Phosphatase 70 Total Creatine Kinase 294 H Total Protein 7.9 Albumin 4.2 Globulin 3.7 Albumin/Globulin Ratio 1.1 Lipase 30 TSH 0.59 Urine Color Urine Clarity Urine pH Ur Specific [place] Urine Protein Urine Glucose (UA) Urine Ketones Urine Occult Blood Urine Nitrite Urine Bilirubin Urine Urobilinogen Ur Leukocyte Esterase Ur Microscopic Review Urine Culture Comments Salicylates < 6.0 Urine Opiates Screen Ur Oxycodone Screen Urine Methadone Screen Ur Propoxyphene Screen Acetaminophen < 10 L Ur Barbiturates Screen Ur Tricyclics Screen Ur Phencyclidine Scrn Ur Amphetamine Screen U Methamphetamines Scrn U Benzodiazepines Scrn Urine Cocaine Screen U Cannabinoids Screen Ethyl Alcohol 500.4 H* 07/21/22 14:30 WBC RBC Hgb Hct MCV MCH MCHC RDW Plt Count MPV Neut # (Auto) Lymph # (Auto) [place] # (Auto) Eos # (Auto) Baso # (Auto) Absolute Nucleated RBC Nucleated RBC % Sodium Potassium Chloride Carbon Dioxide Anion Gap BUN Creatinine Estimated GFR (MDRD) Glucose Calcium Magnesium Total Bilirubin AST ALT Alkaline Phosphatase Total Creatine Kinase Total Protein Albumin Globulin Albumin/Globulin Ratio Lipase TSH Urine Color YELLOW Urine Clarity CLEAR Urine pH 5.5 Ur Specific [place] 1.010 Urine Protein NEGATIVE Urine Glucose (UA) NEGATIVE Urine Ketones NEGATIVE Urine Occult Blood NEGATIVE Urine Nitrite NEGATIVE Urine Bilirubin NEGATIVE Urine Urobilinogen 0.2 (NORMAL) Ur Leukocyte Esterase NEGATIVE Ur Microscopic Review NOT INDICATED Urine Culture Comments NOT INDICATED Salicylates Urine Opiates Screen NEGATIVE Ur Oxycodone Screen NEGATIVE Urine Methadone Screen NEGATIVE Ur Propoxyphene Screen NEGATIVE Acetaminophen Ur Barbiturates Screen NEGATIVE Ur Tricyclics Screen NEGATIVE Ur Phencyclidine Scrn NEGATIVE Ur Amphetamine Screen NEGATIVE U Methamphetamines Scrn NEGATIVE U Benzodiazepines Scrn NEGATIVE Urine Cocaine Screen NEGATIVE U Cannabinoids Screen NEGATIVE Ethyl Alcohol - Rads (name of study) CT head Relevant Findings:: Final report received (no acute cardiopulmonary process) PD Medical Decision Making - ED course Complexity details: reviewed results, re-evaluated patient, d/w patient ED course: 47-year-old female well-known to this emergency department was brought into the ED by EMS at the request of [place] [employer] under an MICHEL after she was found laying on the grass outside [facility]. On presentation she appeared remarkably intoxicated, more so than usual and smelled heavily of alcohol. She however had no focal neurodeficits. We did obtain the usual screening labs that included an alcohol level which was more than 500. The rest of her screening labs including her CBC and electrolytes were without acute worrisome findings. CT of the head showed no acute bleeding. Patient was administered 2 L of IV fluids here in the emergency department. She expressed no thoughts of self-harm or harm to others but she did desire to be discharged. I encouraged the patient to wait until she was sober enough. We did attempt to find a ride for the patient but there was no ride available. Ultimately however the patient eloped from the ER and could not be convinced to remain. At the time of last evaluation though intoxicated she otherwise appeared well. Departure - Departure Disposition: ED Elope Clinical Impression: Acute alcohol intoxication Qualifiers: Complication of substance-induced condition: uncomplicated Qualified Code(s): F10.920 - Alcohol use, unspecified with intoxication, uncomplicated Condition: Stable
[2022-07-21 13:14] LABS: ALBUMIN 4.2 g/dL (3.2-5.5); ALBUMIN/GLOBULIN RATIO 1.1 (1.0-2.2); ALKALINE PHOSPHATASE 70 IU/L (42-121); ALT ALANINE AMINOTRANSFERASE 22 IU/L (10-60); AST ASPARTATE AMINOTRANSFERASE 28 IU/L (10-42); BILIRUBIN,TOTAL 0.4 mg/dL (0.2-1.0); BUN - BLOOD UREA NITROGEN 11 mg/dL (6-20); CALCIUM 8.4 mg/dL (8.5-10.3); CARBON DIOXIDE - CO2 22 mmol/L (21-32); CHLORIDE 108 mmol/L (101-111); CK- CREATINE KINASE 294 IU/L (22-269); CREATININE 0.5 mg/dL (0.4-1.0); GFR - MDRD 131 (>89); GLUCOSE 93 mg/dL (70-100); LIPASE 30 U/L (22-51); MAGNESIUM 2.6 mg/dL (1.7-2.8); POTASSIUM 3.5 mmol/L (3.5-5.0); SODIUM 142 mmol/L (135-145); TOTAL PROTEIN 7.9 g/dL (6.7-8.2)
[2022-07-21 13:15] LABS: ACETAMINOPHEN < 10 ug/mL (10-30); SALICYLATE < 6.0 mg/dL
[2022-07-21 13:23] LABS: ETOH - ETHANOL 500.4 mg/dL
[2022-07-21 14:34] VITALS: BP 132/80
[2022-07-21 14:36] LABS: MUDS CUTOFF CONCENTRATIONS CUTOFF CONC BELOW:
[2022-07-21 14:40] LABS: BILIRUBIN,URINE NEGATIVE (NEGATIVE); GLUCOSE, URINE (UA) NEGATIVE (NEGATIVE); KETONES,URINE (UA) NEGATIVE (NEGATIVE); LEUKOCYTE ESTERASE, URINE NEGATIVE (NEGATIVE); NITRITE,URINE NEGATIVE (NEGATIVE); OCCULT BLOOD,URINE NEGATIVE (NEGATIVE); PH,URINE 5.5 PH (5.0-7.5); PROTEIN,URINE NEGATIVE (NEGATIVE); UROBILINOGEN,URINE 0.2 (NORMAL) E.U./dL (NORMAL)
[2022-07-21 14:41] LABS: CLARITY,URINE CLEAR (CLEAR)
[2022-07-21 14:51] LABS: AMPHETAMINE SCREEN,URINE NEGATIVE (NEGATIVE); BARBITURATE SCREEN,UR NEGATIVE (NEGATIVE); BENZODIAZEPINES SCREEN, URINE NEGATIVE (NEGATIVE); COCAINE SCREEN URINE NEGATIVE (NEGATIVE); METHADONE SCREEN, URINE NEGATIVE (NEGATIVE); METHAMPHETAMINES SCREEN, URINE NEGATIVE (NEGATIVE); OPIATE SCREEN, URINE NEGATIVE (NEGATIVE); OXYCODONE SCREEN, URINE NEGATIVE (NEGATIVE); PROPOXYPHENE SCREEN, URINE NEGATIVE (NEGATIVE); THC CANNABINOID SCREEN, URINE NEGATIVE (NEGATIVE); TRICYCLIC ANTIDEPRESSANT,URINE NEGATIVE (NEGATIVE)
--- NOTE | 2022-07-21 15:00 | CT Report ---
PROCEDURE: HEAD WO INDICATIONS: ams/etoh TECHNIQUE: Noncontrast 4.5 mm thick angled axial sections acquired from the foramen magnum to the vertex. For r adiation dose reduction, the following was used: automated exposure control, adjustment of mA and/or kV according to patient size. COMPARISON: 09/11/2020 FINDINGS: Image quality: Excellent. CSF spaces: Basal cisterns are patent. No extra-axial fluid collections. Ventricles are normal in size and shape. Brain: No midline shift. No intracranial masses or hemorrhage. Allen-white matter interface is norm al. Skull and face: Calvarium and visualized facial bones are intact, without suspicious lesions. Sinuses: Visualized sinuses and mastoids are clear. IMPRESSION: No acute intracranial process Reviewed by: Lucas Taylor MD on 07/21/2022 2:59 PM PDT Approved by: Lucas Taylor MD on 07/21/2022 2:59 PM PDT Station ID: [id number]
== END 2022-07-21 15:59 | disposition left against medical advice (07) ==
LOC: EDUNIT# → ED 12:15
DX: F10.920 Alcohol use, unspecified with intoxication, uncomplicated (principal); Y90.8 Blood alcohol level of 240 mg/100 ml or more; F17.200 Nicotine dependence, unspecified, uncomplicated
CPT/HCPCS: 36415; 80053; 80306; 80307; 80320; 80329; 81001; 81003; 82550; 83690; 83735; 84443; 85025; 87086; 99283; 99284

== ENCOUNTER 2022-07-25 13:21 | Outpatient (CLI) | payer MEDICAID | END 2022-07-25 23:59 | disposition critical access hospital (66) | LOC: EMS 13:21 | DX: R41.82 Altered mental status, unspecified (principal) | CPT/HCPCS: A0425; A0429; A0999 ==

== ENCOUNTER 2022-07-25 13:37 | Emergency (ER) | payer MEDICAID ==
--- OUTSIDE RECORDS SUMMARY | 2022-07-25 13:48 | EXTERNAL MEDICAL SUMMARY RPT | Continuity of Care Document ---
Author Name Unknown Address [address] [place] [address] Phone Organization [facility] Address [address] [place] [address] Phone Care Team Providers Care Director Business Travel Name Role Phone Barb Portillo Pa-C Unavailable [...]
[2022-07-25 13:53] VITALS: BP 128/94
--- NOTE | 2022-07-25 14:30 | ED Physician Documentation ---
History of Present Illness - Stated complaint Stated Complaint: ETOH/UNABLE TO STAND - Chief complaint Chief Complaint: General - History obtained from History obtained from: Patient, EMS - Additonal information Additional information: 47-year-old female brought into the emergency department by EMS for public intoxication today. Patient has no complaints. She was found with a vodka bottle. No reported falls or injuries. Patient denies any pain. She is not suicidal or homicidal. 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, Breast implants Neuro: Other - Present Medications Home Medications: Ambulatory Orders Medication Instructions Recorded Confirmed Risperidone [Risperdal] 1 mg PO DAILY 04/21/22 06/05/22 buPROPion [Wellbutrin Sr] 100 mg PO BID 04/21/22 06/05/22 Atomoxetine HCl [Strattera] 40 mg PO DAILY 04/22/22 06/05/22 Divalproex ER [Depakote ER] 250 mg PO DAILY 04/22/22 06/05/22 busPIRone [Buspar] 5 mg PO BID 04/22/22 06/05/22 hydrOXYzine HCL [Hydroxyzine HCl] 50 mg PO QID 04/22/22 06/05/22 LORazepam [Ativan] 1 mg PO Q12H PRN #3 tab 04/23/22 06/05/22 Naltrexone HCl 50 mg PO DAILY 06/05/22 06/05/22 buPROPion [Wellbutrin Sr] 100 mg PO BID #14 tablet 06/05/22 busPIRone [Buspar] 5 mg PO BID #14 tablet 06/05/22 risperiDONE [RisperDAL] 1 mg PO DAILY #7 tablet 06/05/22 LORazepam [Ativan] 1 - 2 mg PO BID PRN #14 tablet 06/11/22 Ondansetron Odt [Zofran Odt] 4 mg TL Q6H PRN #10 tablet 06/11/22 - Allergies Allergies/Adverse Reactions: Allergies Allergy/AdvReac Type Severity Reaction Status Date / Time No Known Drug Allergies Allergy Verified 07/08/22 07:21 - Social History Does the pt smoke?: Yes Smoking Status: Current every day smoker Does the pt drink ETOH?: Yes Does the pt have substance abuse?: No - Immunizations Immunizations are current?: Yes - POLST Patient has POLST: No POLST Status: Full Code PD ED PE NORMAL - Vitals Vital signs reviewed: Yes - General General: Alert and oriented X 3, No acute distress, Well developed/nourished - HEENT HEENT: PERRL, Moist mucous membranes - Neck Neck: Supple, no meningeal sign - Cardiac Cardiac: RRR, Strong equal pulses - Respiratory Respiratory: No respiratory distress, Clear bilaterally - Abdomen Abdomen: Soft, Non tender, Non distended - Derm Derm: Warm and dry - Extremities Extremities: No edema, No calf tenderness / cord - Neuro Neuro: Alert and oriented X 3 - Psych Psych: Normal mood, Normal affect Results - Vitals Vitals: Vital Signs - 24 hr 07/25/22 13:47 Temperature 36.6 C Heart Rate 81 Respiratory 18 Rate Blood Pressure 128/94 H O2 Saturation 95 Oxygen O2 Source Room air PD Medical Decision Making - ED course Complexity details: reviewed results, re-evaluated patient, considered differential, d/w patient ED course: Patient was allowed to sober in the emergency department. She refuses to stay any longer. She has clear speech, ambulating with a steady gait. She states that she has a friend to take her home. No criteria for involuntary hold. No evidence of head injury. No altered mental status. Patient is a chronic alcoholic. Patient counseled regarding signs and symptoms for which I believe and urgent re-evaluation would be necessary. Patient with good understanding of and agreement to plan and is comfortable going home at this time This document was made in part using voice recognition software. While efforts are made to proofread this document, sound alike and grammatical errors may occur. Departure - Departure Disposition: 01 Home, Self Care Clinical Impression: Alcohol intoxication Qualifiers: Complication of substance-induced condition: uncomplicated Qualified Code(s): F10.920 - Alcohol use, unspecified with intoxication, uncomplicated Condition: Good Instructions: ED Alcohol Intoxication Follow-Up: your,doctor in 1 week [Other] Comments: You have refused any further care today. You do not want to go to rehab or detox. Please follow-up with your doctor for further care. Contact: [address] [address] Fax:
== END 2022-07-25 15:16 | disposition home or self-care (01) ==
LOC: EDUNIT# → ED 13:37
DX: F10.120 Alcohol abuse with intoxication, uncomplicated (principal); F17.200 Nicotine dependence, unspecified, uncomplicated; F32.A Depression, unspecified; F41.9 Anxiety disorder, unspecified; Z79.899 Other long term (current) drug therapy
CPT/HCPCS: 99281; 99283

== ENCOUNTER 2022-08-15 20:04 | Outpatient (CLI) | payer MEDICAID | END 2022-08-15 23:59 | disposition critical access hospital (66) | LOC: EMS 20:04 | DX: Z04.6 Encounter for general psychiatric examination, requested by authority (principal); R45.851 Suicidal ideations; F10.129 Alcohol abuse with intoxication, unspecified | CPT/HCPCS: A0425; A0429; A0999 ==

== ENCOUNTER 2022-08-15 20:27 | Emergency (ER) | payer MEDICAID ==
[2022-08-15 20:49] LABS: BASOPHILS # (AUTO) 0.1 10^3/uL (0.0-0.1); BASOPHILS % (AUTO) 0.9 %; EOSINOPHILS # (AUTO) 0.2 10^3/uL (0.0-0.7); HCT - HEMATOCRIT 43.3 % (37.0-47.0); HGB - HEMOGLOBIN 13.8 g/dL (12.0-16.0); LYMPHOCYTES # (AUTO) 3.7 10^3/uL (1.5-3.5); LYMPHOCYTES % (AUTO) 25.9 %; MEAN CORPUSCULAR HEMOGLOBIN 26.5 pg (27.0-31.0); MEAN CORPUSCULAR HGB CONC 31.9 g/dL (32.0-36.0); MEAN CORPUSCULAR VOLUME 83.1 fL (81.0-99.0); MEAN PLATELET VOLUME 9.1 fL (7.9-10.8); MONOCYTES # (AUTO) 0.9 10^3/uL (0.0-1.0); NEUTROPHILS # (AUTO) 9.4 10^3/uL (1.5-6.6); NEUTROPHILS % (AUTO) 65.6 %; PLT - PLATELET COUNT 731 10^3/uL (130-450); RED BLOOD COUNT 5.21 10^6/uL (4.20-5.40); RED CELL DISTRIBUTION WIDTH 18.6 % (12.0-15.0); WHITE BLOOD COUNT 14.4 x10^3/uL (4.8-10.8)
[2022-08-15 21:05] LABS: MUDS CUTOFF CONCENTRATIONS CUTOFF CONC BELOW:
[2022-08-15 21:06] LABS: ACETAMINOPHEN < 10 ug/mL (10-30); ALBUMIN 4.2 g/dL (3.2-5.5); ALBUMIN/GLOBULIN RATIO 1.1 (1.0-2.2); ALKALINE PHOSPHATASE 107 IU/L (42-121); ALT ALANINE AMINOTRANSFERASE 20 IU/L (10-60); AST ASPARTATE AMINOTRANSFERASE 28 IU/L (10-42); BILIRUBIN,TOTAL 0.3 mg/dL (0.2-1.0); BUN - BLOOD UREA NITROGEN 18 mg/dL (6-20); CALCIUM 8.3 mg/dL (8.5-10.3); CARBON DIOXIDE - CO2 23 mmol/L (21-32); CHLORIDE 106 mmol/L (101-111); CREATININE 0.8 mg/dL (0.4-1.0); ETOH - ETHANOL 414.8 mg/dL; GFR - MDRD 76 (>89); GLUCOSE 102 mg/dL (70-100); LIPASE 49 U/L (22-51); POTASSIUM 3.7 mmol/L (3.5-5.0); SALICYLATE < 6.0 mg/dL; SODIUM 139 mmol/L (135-145)
[2022-08-15 21:07] LABS: BILIRUBIN,URINE NEGATIVE (NEGATIVE); GLUCOSE, URINE (UA) NEGATIVE (NEGATIVE); KETONES,URINE (UA) NEGATIVE (NEGATIVE); LEUKOCYTE ESTERASE, URINE NEGATIVE (NEGATIVE); NITRITE,URINE NEGATIVE (NEGATIVE); OCCULT BLOOD,URINE TRACE-INTA (NEGATIVE); PH,URINE 5.5 PH (5.0-7.5); PROTEIN,URINE NEGATIVE (NEGATIVE); UROBILINOGEN,URINE 0.2 (NORMAL) E.U./dL (NORMAL)
[2022-08-15 21:09] LABS: CLARITY,URINE CLEAR (CLEAR); HCG UR QUAL NEGATIVE
[2022-08-15 21:20] LABS: AMPHETAMINE SCREEN,URINE NEGATIVE (NEGATIVE); BARBITURATE SCREEN,UR NEGATIVE (NEGATIVE); BENZODIAZEPINES SCREEN, URINE NEGATIVE (NEGATIVE); COCAINE SCREEN URINE NEGATIVE (NEGATIVE); METHADONE SCREEN, URINE NEGATIVE (NEGATIVE); METHAMPHETAMINES SCREEN, URINE NEGATIVE (NEGATIVE); OPIATE SCREEN, URINE NEGATIVE (NEGATIVE); OXYCODONE SCREEN, URINE NEGATIVE (NEGATIVE); PROPOXYPHENE SCREEN, URINE NEGATIVE (NEGATIVE); THC CANNABINOID SCREEN, URINE NEGATIVE (NEGATIVE); TRICYCLIC ANTIDEPRESSANT,URINE NEGATIVE (NEGATIVE)
--- NOTE | 2022-08-15 21:47 | ED Physician Documentation ---
PD HPI MHE - Stated complaint Stated Complaint: SI/ETOH - Chief complaint Chief Complaint: MHE - History obtained from History obtained from: Patient, EMS - Additional information Additional information: Patient is a 47-year-old female presenting for evaluation of alcohol use And feeling suicidal. Patient states that she has thoughts of hurting herself by shooting herself. However she also states she does not have access to a firearm. Patient is unsure of how much alcohol she has recently been drinking.No reported trauma. Review of Systems Unable to obtain: Intoxicated PD PAST MEDICAL HISTORY - Past Medical History Past Medical History: Yes Cardiovascular: None Respiratory: None Neuro: None Endocrine/Autoimmune: None GI: None SYSTEMS NAVIGATOR: None : None HEENT: None Psych: Depression, Anxiety, Panic attacks, ADD/ADHD, Post traumatic stress disorder Musculoskeletal: None Derm: None - Past Surgical History Past Surgical History: Yes /SYSTEMS NAVIGATOR: section, Breast implants Neuro: Other - Present Medications Home Medications: Ambulatory Orders Medication Instructions Recorded Confirmed Atomoxetine HCl [Strattera] 40 mg PO DAILY 04/22/22 08/16/22 Divalproex ER [Depakote ER] 250 mg PO DAILY 04/22/22 08/16/22 hydrOXYzine HCL [Hydroxyzine HCl] 50 mg PO QID 04/22/22 08/16/22 Naltrexone HCl 50 mg PO DAILY 06/05/22 08/16/22 buPROPion [Wellbutrin Sr] 100 mg PO BID #14 tablet 06/05/22 08/16/22 busPIRone [Buspar] 5 mg PO BID #14 tablet 06/05/22 08/16/22 risperiDONE [RisperDAL] 1 mg PO DAILY #7 tablet 06/05/22 08/16/22 LORazepam [Ativan] 1 - 2 mg PO BID PRN #14 tablet 06/11/22 08/16/22 Ondansetron Odt [Zofran Odt] 4 mg TL Q6H PRN #10 tablet 06/11/22 08/16/22 Divalproex ER [Depakote ER] 250 mg PO DAILY 30 Days #30 tablet 08/16/22 Naltrexone HCl 50 mg PO DAILY #30 tablet 08/16/22 Ondansetron Odt [Zofran] 4 mg TL Q6H PRN #20 tablet 07/03/23 hydrOXYzine HCL [Hydroxyzine HCl] 25 mg PO QID PRN #30 tablet 08/16/22 - Allergies Allergies/Adverse Reactions: Allergies Allergy/AdvReac Type Severity Reaction Status Date / Time No Known Drug Allergies Allergy Verified 08/15/22 20:45 - Social History Does the pt smoke?: Yes Smoking Status: Current every day smoker Does the pt drink ETOH?: Yes Does the pt have substance abuse?: No - Immunizations Immunizations are current?: Yes - POLST Patient has POLST: No POLST Status: Full Code PD ED PE NORMAL - General General: Alert and oriented X 3, No acute distress, Well developed/nourished - HEENT HEENT: Atraumatic, PERRL, EOMI, Moist mucous membranes, Pharynx benign - Neck Neck: Supple, no meningeal sign - Cardiac Cardiac: Other (Tachycardic, regular rhythm) - Respiratory Respiratory: No respiratory distress, Clear bilaterally - Abdomen Abdomen: Soft, Non tender - Derm Derm: Warm and dry - Neuro Neuro: Alert and oriented X 3, No motor deficit, Other (Speech consistent with EtOH use) Results - Vitals Vitals: Oxygen O2 Source Room air - Labs Labs: Laboratory Tests 08/15/22 08/15/22 08/15/22 20:44 20:44 20:44 WBC 14.4 H RBC 5.21 Hgb 13.8 Hct 43.3 MCV 83.1 MCH 26.5 L MCHC 31.9 L RDW 18.6 H Plt Count 731 H MPV 9.1 Neut # (Auto) 9.4 H Lymph # (Auto) 3.7 H [place] # (Auto) 0.9 Eos # (Auto) 0.2 Baso # (Auto) 0.1 Absolute Nucleated RBC 0.00 Nucleated RBC % 0.0 Sodium 139 Potassium 3.7 Chloride 106 Carbon Dioxide 23 Anion Gap 10.0 BUN 18 Creatinine 0.8 Estimated GFR (MDRD) 76 L Glucose 102 H Calcium 8.3 L Total Bilirubin 0.3 AST 28 ALT 20 Alkaline Phosphatase 107 Total Protein 8.0 Albumin 4.2 Globulin 3.8 Albumin/Globulin Ratio 1.1 Lipase 49 TSH 1.76 Urine Color Urine Clarity Urine pH Ur Specific [place] Urine Protein Urine Glucose (UA) Urine Ketones Urine Occult Blood Urine Nitrite Urine Bilirubin Urine Urobilinogen Ur Leukocyte Esterase Ur Microscopic Review Urine Culture Comments Urine HCG, Qual Salicylates < 6.0 Urine Opiates Screen Ur Oxycodone Screen Urine Methadone Screen Ur Propoxyphene Screen Acetaminophen < 10 L Ur Barbiturates Screen Ur Tricyclics Screen Ur Phencyclidine Scrn Ur Amphetamine Screen U Methamphetamines Scrn U Benzodiazepines Scrn Urine Cocaine Screen U Cannabinoids Screen Ethyl Alcohol 414.8 08/15/22 08/16/22 08/16/22 21:00 05:45 09:09 WBC RBC Hgb Hct MCV MCH MCHC RDW Plt Count MPV Neut # (Auto) Lymph # (Auto) [place] # (Auto) Eos # (Auto) Baso # (Auto) Absolute Nucleated RBC Nucleated RBC % Sodium Potassium Chloride Carbon Dioxide Anion Gap BUN Creatinine Estimated GFR (MDRD) Glucose Calcium Total Bilirubin AST ALT Alkaline Phosphatase Total Protein Albumin Globulin Albumin/Globulin Ratio Lipase TSH Urine Color YELLOW Urine Clarity CLEAR Urine pH 5.5 Ur Specific [place] <=1.005 Urine Protein NEGATIVE Urine Glucose (UA) NEGATIVE Urine Ketones NEGATIVE Urine Occult Blood TRACE-INTA Urine Nitrite NEGATIVE Urine Bilirubin NEGATIVE Urine Urobilinogen 0.2 (NORMAL) Ur Leukocyte Esterase NEGATIVE Ur Microscopic Review NOT INDICATED Urine Culture Comments NOT INDICATED Urine HCG, Qual NEGATIVE Salicylates Urine Opiates Screen NEGATIVE Ur Oxycodone Screen NEGATIVE Urine Methadone Screen NEGATIVE Ur Propoxyphene Screen NEGATIVE Acetaminophen Ur Barbiturates Screen NEGATIVE Ur Tricyclics Screen NEGATIVE Ur Phencyclidine Scrn NEGATIVE Ur Amphetamine Screen NEGATIVE U Methamphetamines Scrn NEGATIVE U Benzodiazepines Scrn NEGATIVE Urine Cocaine Screen NEGATIVE U Cannabinoids Screen NEGATIVE Ethyl Alcohol 154.5 44.8 [address] Medical Decision Making - ED course Complexity details: reviewed results, re-evaluated patient, d/w patient ED course: 06 - Patient reevaluated. She is awake, talking with clear speech. She states she no longer feels suicidal But she does recall making those statements last night. She states that she has been struggling with depression. She is also wanting to stop with her alcohol use. She feels slightly shaky and is requesting something for withdrawal and would like to speak to social work this morning. Patient is a 47-year-old female presenting for evaluation of alcohol use and feeling suicidal. She is intoxicated upon arrival. Labs were obtained. Mild leukocytosis with no concerning symptoms to suggest infection. Her alcohol level is elevated at 440. Patient was allowed to sleep overnight and was reassessed this morning. She appears more sober. She continues to report feeling depressed but does not feel suicidal as she did last night.She does acknowledge that she needs help with her alcohol use and her depression and would like to speak to social work. Social work consult has been placed. The patient was given a dose of Ativan for patient reporting anxiety and tremulous.Patient will be signed out to oncoming provider at shift change. Departure - Departure Disposition: 01 Home, Self Care Clinical Impression: Acute alcohol intoxication, Alcohol use disorder Condition: Stable Prescriptions: Divalproex ER [Depakote ER] 250 mg PO DAILY 30 Days #30 tablet hydrOXYzine HCL [Hydroxyzine HCl] 25 mg PO QID PRN #30 tablet PRN Reason: Anxiety Naltrexone HCl 50 mg PO DAILY #30 tablet Ondansetron Odt [Zofran] 4 mg TL Q6H PRN #20 tablet PRN Reason: Nausea / Vomiting Comments: Go to [facility] for intake and treatment for your alcohol use disorder. Your psychiatrist refilled your bupropion and risperidone. I wrote for the divalproex. This should be at [facility]. The providers at [facility] will give the medications they want for the alcohol withd dilan as a have certain protocols for them. Return as needed. Discharge Date/Time: 08/16/22 17:40
[2022-08-16] MEDS ORDERED: LORazepam 1 MG TABLET PO STA (06:17)
[2022-08-16] MEDS ORDERED: diazePAM 5 MG TABLET PO STA ×2 (10:11→15:53)
[2022-08-16] MEDS ORDERED: PHENobarbitaL 32.4 MG TABLET PO STA (10:12)
[2022-08-16] MEDS ORDERED: ONDANSETRON ODT 4 MG TABLET TL STA (10:12)
[2022-08-16 14:27] VITALS: BP 126/81
--- NOTE | 2022-08-16 15:48 | ED Physician Documentation ---
ED Addendum - Addendum Addendum: 08/16/22 15:45 Continue with usual medications. [facility] Your The patient remained stable here in the ER. She had a repeat alcohol level this morning which showed a improved level. The psychotherapist social worker talked with her about treatment options. They settled on detox facility in [place]. Karina the social work was checking to see if there are beds available and the patient did talk with them for an initial phone intake. They are able to accept her there. Social work was talking with her psychiatrist about getting refills for her usual medicines. Subsequently the provider was contacted and able to send scripts for the bupropion and risperidone. The patient asked about the divalproex as well and I wrote a prescription for that. These were sent to [facility]. The patient was having withdrawal symptoms midmorning and she was given oral doses of phenobarb as well as diazepam and Zofran. This provided good improvement. I rechecked just now she started to get a little shaky. It will be a little bit of time for her to discharge and get to a to a by cab. I can give her repeat dosing of benzodiazepine at this point. Disposition: The patient discharged in stable condition to go to a detox facility Diagnoses: 1. Acute alcohol intoxication 2. Alcohol use disorder 3. Depression anxiety
[2022-08-16] MEDS ORDERED: IBUPROFEN 600 MG TABLET PO STA (16:57)
== END 2022-08-16 17:40 | disposition home or self-care (01) ==
LOC: EDUNIT# → ED 20:27
DX: F10.129 Alcohol abuse with intoxication, unspecified (principal); Y90.6 Blood alcohol level of 120-199 mg/100 ml; F32.A Depression, unspecified; F41.9 Anxiety disorder, unspecified; F17.200 Nicotine dependence, unspecified, uncomplicated; Z79.899 Other long term (current) drug therapy
CPT/HCPCS: 36415; 80053; 80306; 80307; 80320; 80329; 81003; 81025; 83690; 84443; 85025; 99283; 99284; A9270; J8499; Q0162; 81001; 82550; 83735; 87086

== ENCOUNTER 2023-07-01 15:00 | Outpatient (CLI) | payer MEDICAID ==
[2023-07-01 18:17] LABS: BASOPHILS % (AUTO) 0.5 %; EOSINOPHILS # (AUTO) 0.4 10^3/uL (0.0-0.7); HCT - HEMATOCRIT 44.5 % (37.0-47.0); HGB - HEMOGLOBIN 14.3 g/dL (12.0-16.0); LYMPHOCYTES # (AUTO) 1.7 10^3/uL (1.5-3.5); LYMPHOCYTES % (AUTO) 28.3 %; MEAN CORPUSCULAR HEMOGLOBIN 28.5 pg (27.0-31.0); MEAN CORPUSCULAR HGB CONC 32.1 g/dL (32.0-36.0); MEAN CORPUSCULAR VOLUME 88.8 fL (81.0-99.0); MEAN PLATELET VOLUME 10.9 fL (7.9-10.8); MONOCYTES # (AUTO) 0.4 10^3/uL (0.0-1.0); MONOCYTES % (AUTO) 6.3 %; NEUTROPHILS # (AUTO) 3.5 10^3/uL (1.5-6.6); NEUTROPHILS % (AUTO) 58.7 %; PLT - PLATELET COUNT 367 10^3/uL (130-450); RED BLOOD COUNT 5.01 10^6/uL (4.20-5.40); RED CELL DISTRIBUTION WIDTH 14.3 % (12.0-15.0)
[2023-07-01 18:41] LABS: ALBUMIN 4.8 g/dL (3.2-5.5); ALBUMIN/GLOBULIN RATIO 1.8 (1.0-2.2); BILIRUBIN,TOTAL 0.5 mg/dL (0.2-1.0); CALCIUM 9.7 mg/dL (8.5-10.3); CREATININE 0.7 mg/dL (0.6-1.3); POTASSIUM 4.1 mmol/L (3.5-4.5); TOTAL PROTEIN 7.5 g/dL (6.4-8.9)
[2023-07-01 19:00] LABS: THYROID STIMULATING HORMONE 1.3 uIU/mL (0.34-5.60)
[2023-07-01 19:12] LABS: RHEUMATOID FACTOR NEGATIVE (Negative)
== END 2023-07-01 15:15 | disposition home or self-care (01) ==
LOC: LAB.N 15:00
PROVIDERS: ATTEND Physician Assistant Medical
DX: L65.9 Nonscarring hair loss, unspecified (principal); R21 Rash and other nonspecific skin eruption; M25.549 Pain in joints of unspecified hand
CPT/HCPCS: 36415; 80050; 84439; 84481; 86038; 86225; 86430